=== PATIENT | female | born 1960 | race Caucasian/White ===

== ENCOUNTER 2024-06-20 16:06 | Emergency (ER) | payer BC, SELFPAY ==
[2024-06-20 16:19] VITALS: BP 131/89; PULSE 75; RESP 18; TEMP 36.4; O2SAT 97; BMI 25.4
--- NOTE | 2024-06-20 16:39 | CRLHL7_ITS ---
For Patients: As a result of the 21st Century Cures Act, medical imaging exams and procedure reports are released immediately into your electronic medical record. You may view this report before your referring provider. If you have questions, please contact your health care provider. INDICATION: Abdominal pain, not otherwise described. COMPARISON: None available. TECHNIQUE: CT of the abdomen and pelvis with 64 cc of Isovue 370 intravenous contrast. Please note that all CT scans at this facility use dose modulation, iterative reconstruction, and/or weight-based dosing when appropriate to reduce radiation dose to as low as reasonably achievable. FINDINGS: ABDOMEN Liver: Normal contour and attenuation. No significant focal lesion. No intrahepatic biliary ductal dilatation. Patent portal veins. Patent hepatic veins. Gallbladder: Normal size. No pericholecystic inflammatory changes. Normal common duct caliber. Pancreas: Normal contour and attenuation. No peripancreatic inflammatory changes. No significant focal lesion. Normal main duct caliber. Spleen: Not enlarged. No significant focal lesion. Patent splenic artery and vein. Adrenal Glands: Symmetrical adrenal glands. No significant focal lesion. Kidneys: 4 mm obstructing proximal left ureteral stone (4; 69) with associated mild upstream dilatation of the left upper urinary tract. A delayed left nephrogram is consistent with indirect evidence of obstructive uropathy. Perinephric and periureteral fat stranding within the left perirenal space is consistent with edema and/or spontaneous decompression of the obstructed left upper urinary tract. No suspicious focal renal lesion. Too small to characterize round circumscribed homogeneous hypoattenuating findings in the medial right upper pole renal cortex (2; 51) and lateral interpolar right renal cortex (2; 58) statistically likely represent small cysts. No further workup or ongoing imaging surveillance is indicated for such incidental findings. Gastrointestinal tract: Normal caliber, attenuation and wall thickness of the gastrointestinal tract. No inflammatory changes. Normal small bowel mesentery. Normal appendix. Vascular: Minimal chronic aortoiliac atherosclerotic mural calcification. Abdominal aorta and its major proximal branches including the celiac, superior mesenteric, inferior mesenteric, renal, and bilateral common iliac arteries are patent. Patent superior mesenteric vein. Peritoneal Cavity/Retroperitoneum: No ascites. No adenopathy. PELVIS No bladder lesion is identified. No significant incidental findings related to the uterus or uterine adnexa. No significant ascites. No adenopathy. SKELETON AND BODY WALL No acute or significant incidental findings. LOWER THORAX Severe multivessel atherosclerotic coronary artery calcifications. Partially included lower thoracic wall, lungs, pleural spaces and mediastinum are otherwise without significant incidental findings. IMPRESSION: 4 mm obstructing proximal left ureteral stone described above. Incidental findings described in the body of the report. Please note that all CT scans at this facility use dose modulation, iterative reconstruction, and/or weight-based dosing when appropriate to reduce radiation dose to as low as reasonably achievable. Dictated by Jv Smith MD @ 06/20/2024 7:03:26 PM (Electronically Signed)
--- NOTE | 2024-06-20 16:41 | ED_ITS ---
HPI - Abdominal Pain General Chief Complaint: Abdominal Pain Stated Complaint: abdominal pain Time Seen by Provider: 06/20/24 16:07 History of Present Illness HPI narrative: This 64-year-old female comes in with her because of abdominal pain that began this morning. She states that it has been rather constant throughout the day and the pain is diffuse across her whole abdomen. She does report nausea with several vomiting episodes. She does have diabetes type 2. Prior to this she has been in good health. She does not report any fever or blood in the toilet. Related Data Home Medications ?Medication ?Instructions ?Recorded ?Confirmed Trulicity 06/20/24 amlodipine 06/20/24 glipizide 06/20/24 lisinopril 06/20/24 metformin 06/20/24 pravastatin 06/20/24 Allergies Allergy/AdvReac Type Severity Reaction Status Date / Time No Known Drug Allergies Allergy Verified 06/20/24 18:03 Review of Systems Status of ROS Reports: 10 or more systems reviewed and unremarkable except as noted in History and below Narrative Constitutional: No fevers, no weight gain or loss. Eyes: No discharge. No vision changes. HENT: No congestion, no sore throat, no ear pain. Cardiovascular: No chest pain, no palpitations. Respiratory: No shortness of breath, no wheezes, no cough. Gastrointestinal: Abdominal pain with nausea and vomiting as described above. No diarrhea. Genitourinary: No dysuria, no hematuria. Musculoskeletal: Normal range of motion. Skin: No rashes, no pruritis. Neurological: No dizziness, weakness, sensory change, speech change. Endo/Heme/Allergies: No bruising or bleeding. No polydipsia. Pysch: no suicidality, no anxiety, no insomnia. All other systems reviewed and are negative. [facility] Social History Smoking Status: Never smoker Non-prescribed substance use: denies use Exam Narrative: Exam Narrative: Constitutional: Well-developed, well-nourished, no acute distress. HEENT: Normocephalic, atraumatic. Neck: Normal range of motion. Nontender. Supple. Heart: Regular. No murmurs. Normal rate. Intact distal pulses. Lungs: Clear to auscultation. No chest discomfort. No wheezes, rhonchi, or rales. Abdomen: Normal bowel sounds. Diffuse tenderness across the abdomen. No re bound tenderness. Genitalia: Deferred. Back: No midline tenderness. Normal range of motion. Extremities: Normal range of motion. No injury. Skin: Intact. No rash. Warm. No erythema or pallor. Neurologic: No altered sensation. No weakness. Alert and oriented. Psychiatric: No suicidality. No anxiety or depression. No insomnia. Nursing notes and vitals signs are reviewed. Const: Vital Signs, click to edit/add: Vital Signs - 24 hr 06/20/24 16:19 Temperature 97.5 F L Pulse Rate [Pulse Oximeter] 75 Respiratory Rate 18 [facility] 131/89 Pulse Oximetry 97 Oxygen Delivery Me thod Room Air Course Vital Signs Vital signs: Initial Vital Signs Temperature 97.5 F L 06/20/24 16:19 Temperature Source Temporal Artery Scan 06/20/24 16:19 Pulse Rate 75 06/20/24 16:19 Respiratory Rate 18 06/20/24 16:19 Blood Pressure 131/89 06/20/24 16:19 Blood Pressure Mean 103 06/20/24 16:19 Blood Pressure Position Supine 06/20/24 16:19 Pulse Oximetry 97 06/20/24 16:19 Oxygen Delivery Method Room Air 06/20/24 16:19 Vital Signs Temperature 97.5 F L 06/20/24 16:19 Pulse Rate 75 06/20/24 16:19 Respiratory Rate 18 06/20/24 16:19 Blood Pressure 131/89 06/20/24 16:19 Pulse Oximetry 97 06/20/24 16:19 Oxygen Delivery Method Room Air 06/20/24 16:19 Temperature 97.5 F L 06/20/24 16:19 Pulse Rate 75 06/20/24 16:19 Respiratory Rate 18 06/20/24 16:19 Blood Pressure 131/89 06/20/24 16:19 Pulse Oximetry 97 06/20/24 16:19 Oxygen Delivery Method Room Air 06/20/24 16:19 Medications Administered Medications: Discontinued Medications Generic Name Dose Route Start Last Admin Trade Name Freq PRN Reason Stop Dose Admin Sodium Chloride 500 mls @ 500 mls/hr 06/20/24 16:38 06/20/24 18:07 0.9 % Sodium Chloride 500 Ml IV 06/20/24 17:37 Infused .Q1H ONE Infusion Ketorolac Tromethamine 15 mg 06/20/24 16:38 06/20/24 16:58 Ketorolac 30 Mg/Ml Inj IVP 06/20/24 16:39 15 mg ONCE ONE Administration Ondansetron HCl 4 mg 06/20/24 16:38 06/20/24 16:58 Ondansetron 2 Mg/Ml Inj IVP 06/20/24 16:39 4 mg ONCE ONE Administration MDM - Abdominal Pain MDM Narrative Medical decision making narrative: This 64-year-old female comes in with abdominal pain and does report a history of a kidney stone about 4 years ago. An IV was established and CT imaging is obtained which does show evidence of a 4 mm stone in the left proximal ureter. The patient received IV doses of Toradol and Zofran which brought sufficient relief. She is okay to be discharged home and hopefully this stone will pass with the assistance of pain and nausea medicines. I did state that she may need intervention from her urologist if not improving. She received [facility] prescriptions for [place], Toradol, and Zofran. Lab Data Labs: Lab Results 06/20/24 06/20/24 Range/Units 17:05 18:50 WBC 12.93 H (4.50-11.00) K/uL RBC 5.02 (4.00-5.20) m/uL Hgb 13.1 (12.0-16.0) gm/dL Hct 40.1 (33.0-51.0) % MCV 80 (80-100) fL MCH 26 (26-34) pg MCHC 33 (32-36) gm/dL RDW Coeff of Sadia 14.5 (11.5-15.5) % Plt Count 269 (140-440) K/uL Neut % (Auto) 90.8 H (42.0-72.0) % Lymph % (Auto) 5.6 L (20-44) % [place] % (Auto) 3.2 (0.0-11.0) % Eos % (Auto) 0.0 (0.0-7.0) % Baso % (Auto) 0.2 (0.0-3.0) % Neut # (Auto) 11.70 H (1.7-7.0) K/uL Lymph # (Auto) 0.70 L (0.90-2.90) K/uL [place] # (Auto) 0.40 (0.00-0.90) K/UL Eos # (Auto) 0.00 (0.00-0.50) K/uL Baso # (Auto) 0.00 (0.00-0.30) K/uL Abs Immat Gran (auto) 0.00 (0.00-0.30) K/uL Imm/Tot Granulo (auto) 0.2 % Sodium 139 (135-149) mmol/L Potassium 4.5 (3.6-5.1) mmol/L Chloride 103 (96-114) mmol/L Carbon Dioxide 20 (20-32) mmol/L Anion Gap 16 H (7-15) mEq/L BUN 17 (7-30) mg/dL Creatinine 0.7 (0.5-1.5) mg/dL Estimated Creat Clear 41.90 Estimated GFR 98 ml/min Glucose 221 H (60-115) mg/dL Calcium 10.0 (8.4-10.6) mg/dL Lipase 121 (23-300) U/L Urine Color Yellow (Yellow) Urine Appearance Clear (Clear) Urine pH 6.5 (5.0-8.5) Ur Specific [place] 1.010 (1.000-1.030) Urine Protein Negative (Negative) Urine Glucose (UA) 3+ A (Negative) Urine Ketones 2+ A (Negative) Urine Blood 1+ A (Negative) Urine Nitrite Negative (Negative) Urine Bilirubin Negative (Negative) Urine Urobilinogen 0.2 (0.2-1.0) Ur Leukocyte Esterase Negative (Negative) Urine RBC 0-2 (0-2) Urine WBC 0-2 (0-5) Ur Squamous Epith Cells None (None-Few) Urine Bacteria None (None) Imaging Data CT scan - abdomen: Radiologist's impression: 4 mm obstructing proximal left ureteral stone described above. Incidental findings described in the body of the report. Discharge Plan Discharge Clinical Impression: Left ureteral calculus Patient Disposition: Home w/ Parent or Adult Condition: Stable Additional Instructions: Take medications as needed and indicated. Follow-up with clinic or urologist if not improving or return if worsening. Prescriptions: No Action metformin glipizide Trulicity amlodipine pravastatin lisinopril Stand Alone Forms: [employer] Info Instructions
[2024-06-20] MEDS: 0.9 % SODIUM CHLORIDE 500 ML 500 ML IV (16:57)
[2024-06-20] MEDS: ONDANSETRON 2 MG/ML inj 4 MG IVP (16:58)
[2024-06-20] MEDS: KETOROLAC 30 MG/ML inj 15 MG IVP (16:58)
[2024-06-20 17:13] LABS: Basophils Percent Auto 0.2 % (0.0-3.0); Hematocrit 40.1 % (33.0-51.0); Hemoglobin* 13.1 gm/dL (12.0-16.0); Immature Granulocytes Pct Auto 0.2 %; Lymphocytes Percent Auto 5.6 % (20-44); Mean Corpuscular HGB Conc 33 gm/dL (32-36); Mean Corpuscular Hemoglobin 26 pg (26-34); Mean Corpuscular Volume 80 fL (80-100); Monocytes Percent Auto 3.2 % (0.0-11.0); Neutrophils Percent Auto 90.8 % (42.0-72.0); Platelet Count* 269 K/uL (140-440); RDW Coefficient of Variation % 14.5 % (11.5-15.5); Red Blood Count 5.02 m/uL (4.00-5.20); White Blood Count* 12.93 K/uL (4.50-11.00)
[2024-06-20 17:17] LABS: Slide Review Reflex No
[2024-06-20 17:38] LABS: Chloride* 103 mmol/L (96-114); Sodium* 139 mmol/L (135-149)
[2024-06-20 17:39] LABS: Potassium* 4.5 mmol/L (3.6-5.1)
[2024-06-20 17:41] LABS: Anion Gap 16 mEq/L (7-15); Blood Urea Nitrogen* 17 mg/dL (7-30); Carbon Dioxide* 20 mmol/L (20-32); Creatinine* 0.7 mg/dL (0.5-1.5); Estimated Glomerular Filt Rate 98 ml/min; Glucose* 221 mg/dL (60-115); Lipase* 121 U/L (23-300)
[2024-06-20 19:01] VITALS: BP 141/94
[2024-06-20 19:06] LABS: Appearance Urine Clear (Clear); Bilirubin Urine Negative (Negative); Blood Urine 1+ (Negative); Color Urine Yellow (Yellow); Glucose Urine 3+ (Negative); Ketones Urine 2+ (Negative); Leukocyte Esterase Urine Negative (Negative); Nitrite Urine Negative (Negative); Protein Urine Negative (Negative); Urobilinogen Urine 0.2 (0.2-1.0); pH Urine 6.5 (5.0-8.5)
[2024-06-20 19:10] LABS: RBC Urine 0-2 (0-2); WBC Urine 0-2 (0-5)
[2024-06-20 19:31] VITALS: BP 141/99; PULSE 73; RESP 16; O2SAT 96
--- OUTSIDE RECORDS SUMMARY | 2024-06-20 19:33 | XMS_ITS | Encounter Summary ---
Author Organization [place] Address [facility] [place] [address] Care Team Providers Care Operations And Maintenance Technician Name Role Phone Kacy Reyes MD Unavailable [phone] Tru Dasilva MD Primary Care Provider [phone] Tru Dasilva MD Unavailable Reason for Visit * Reason Comments Medication Refill Encounter Details Date Type Department Care Team (Late st Contact Info) Description 05/16/2024 Refill [facility] [address] [place] [address] Kacy Reyes MD [address] [place] [address] Medication Refill Social History Tobacco Use Types Packs/Day Years Used Date Smoking Tobacco: Never Smokeless Tobacco: Never Alcohol Use Standard Drinks/Week Comments Yes 0 (1 standard drink = 0.6 oz pur e alcohol) wine Social Connection and Isolation Panel [NHANES] A nswer Date Recorded Frequency of Communication with Friends and Fami ly Not on file 12/24/2023 How often do you get together with friends or re latives? Once a week 12/24/2023 Attends Scientology Services Not on file 12/23 Active Member of Clubs or Organizations Not on f ile 12/24/2023 Attends Club or Organization Meetings Not on rachele e 12/24/2023 Marital Status Not on file 12/24/2023 PHQ-2 Answer Date Recorded PHQ-2 Score 0 12/24/2023 [facility] - Occupational Stress Questionnaire Answer Date Recorded Do you feel stress - tense, restless, nervous, or anxious, or unable to sleep at night because your mind is troubled all the time - these days? Only a little 12/24/2023 Exercise Vital Sign Answer Date Recorde d On average, how many days pe r week do you engage in moderate to strenuous exercise (like a brisk walk)? 5 days 12/24/2023 On average, how many minutes do you engage in exercise at this level? 60 min 12/24/2023 Adolescent Education Answer Date Record ed Getting School Help Needed Not on file 04/20 Food Insecurity Answer Date Recorded Within the past 12 months, d id you worry that your food would run out before you got money to buy more? No 12/24/2023 Within the past 12 months, d id the food you bought just not last and you didn t have money to get more? No 12/24/2023 Housing Stability Answer Date Recorded Do you have housing? (Housin g is defined as stable permanent housing and does not include staying ouside in a car, in a tent, in an abandoned building, in an overnight prison, or couch-surfing.) Yes 12/24/2023 Are you worried about losing your housing? No 12/24/2023 Financial Resource Strain Answer Date R ecorded Within the past 12 months, h ave you or your family members you live with been unable to get utilities (heat, electricity) when it was really needed? No 12/24/2023 Transportation Needs Answer Date Record ed Within the past 12 months, h as lack of transportation kept you from medical appointments, getting your medicines, non-medical meetings or appointments, work, or from getting things that you need? No 12/24/2023 Comments No Sex and Gender Information Value Date Recorded Sex Assigned at Not on file Legal Sex Female 3:19 AM HAND BUFFER Gender Identity Not on file Sexual Orientation Not on file Occupation Industry Job Start Date Job End Date Not on file Not on file Not on file Not on file documented as of this encounter Miscellaneous Notes * Telephone Encounter - Elizabeth Alexandre RN - 05/16/2024 10:17 AM CDT Requested Prescriptions Pending Prescriptions Disp Refills lisinopril (ZESTRIL) 40 MG tablet [Pharmacy Med Name: LISINOPRIL 40MG TABS] 90 tablet 0 Sig: TAKE ONE TABLET BY MOUTH ONCE DAILY RENETTA Inhibitors (Including Combos) Protocol Passed - 05/16/2024 10:21 AM Passed - Most recent blood pressure under 140/90 in past 12 months- Clinicial or Patient Reported BP Readings from Last 3 Encounters: 04/28/24 111/70 12/24/23 117/78 11/23/23 126/70 No data recorded Passed - Medication is active on med list Passed - Medication indicated for associated diagnosis Medication is associated with one or more of the following diagnoses: Chronic Kidney Disease (CKD) Coronary Artery Disease (CAD) Diabetes Heart Failure (HF) Hypertension (HTN) Nephropathy History of myocarditis Tachycardia induced cardiomyopathy STEMI (ST elevation myocardial infarction) Spontaneous dissection of coronary artery Status post percutaneous transluminal coronary angioplasty Passed - Recent (12 mo) or future (90 days) visit within the authorizing provider's specialty The patient must have completed an in-person or virtual visit within the past 12 months or has a future visit scheduled within the next 90 days with the authorizing provider???s specialty. Urgent care and e-visits do not quality as an office visit for this protocol. Passed - Most recent GFR on file in the past 12 months >30 Passed - Patient is age 18 or older Passed - No active on record Passed - Normal serum potassium on file in past 12 months Recent Labs Lab Test 11/18/23 1007 POTASSIUM 4.3 Passed - No positive test within past 12 months pravastatin (PRAVACHOL) 40 MG tablet [Pharmacy Med Name: PRAVASTATIN SODIUM 40MG TABS] 90 tablet 0 Sig: TAKE ONE TABLET BY MOUTH ONCE DAILY Antihyperlipidemic agents Passed - 05/16/2024 10:21 AM Passed - LDL on file in the past 12 months Passed - Medication is active on med list Passed - Recent (12 mo) or future (90 days) visit within the authorizing provider's specialty The patient must have completed an in-person or virtual visit within the past 12 months or has a future visit scheduled within the next 90 days with the authorizing provider???s specialty. Urgent care and e-visits do not quality as an office visit for this protocol. Passed - Patient is age 18 years or older Passed - No active on record Passed - No positive test in past 12 mos documented in this encounter Plan of Treatment Upcoming Encounters Date Type Department Care Team (Latest Contact Info) Description 06/24/2024 8:30 AM HAND BUFFER Office Visit [facility] [address] [place] [address] [place] [id number] [place] [address] 07/29/2024 10:45 AM HAND BUFFER Ancillary Procedure [facility] [address] [place] [phone] David Lau PA-C [address] [place] [address] Visit for screening mammogram 10/31/2024 3:00 PM CDT Office Visit [place] [address] [place] [phone] Kayce Jasso PA-C [address] [place], [place] [id number] 01/02/2025 10:00 AM CDT Office Visit [facility] [address] [place] [phone] David Lau PA-C [address] [place], [place] [phone] 05/03/2025 1:00 PM CDT Office Visit [facility] [address] [facility] [address] [place] [phone] Kacy Reyes MD [address] [facility] [address] [place] [address] documented as of this encounter Visit Diagnoses Diagnosis Essential hypertension, benign Hyperlipidemia LDL goal <100 Other and unspecified hyperlipidemia Visit for screening mammogram Other screening mammogram documented in this encounter Care Teams Operations And Maintenance Technician Relationship Specialty [place] [address] [place] [address] PCP - General Family Medicine 12/18/23 06/02/24 Kacy Reyes MD [address] [place] [address] [address] [place] [address] Assigned Endocrinology Provider 12/10/23 [place] [address] [place] [address] Assigned PCP 01/10/24 documented as of this encounter
--- OUTSIDE RECORDS SUMMARY | 2024-06-20 19:33 | XMS_ITS | Encounter Summary ---
Author Organization [place] Address [facility] [place] [address] Care Team Providers Care Director Operations Name Role Phone Kacy Reyes MD Unavailable [phone] Kali Ventura PA-C Primary Care Provider Kali Ventura PA-C Unavailable Kizzy Davenport OD Unavailable Ricky Ramirez MD Unavailable [phone] Jamar Walter PA-C Unavailable Kali Ventura PA-C Unavailable Kacy Reyes MD Unavailable [phone] Tru Dasilva MD Primary Care Provider Tru Dasilva MD Unavailable David Lau PA-C Primary Care Provider Reason for Visit * Reason Comments Refill Request metFORMIN (GLUCOPHAG E) 1000 MG tablet 60 tablet 0 04/03/2023 Encounter Details Date Type Department Care Team (Late st Contact Info) Description 04/28/[address] [address] Jamar Walter PA-C [address] [place] [address] Refill Request (metFORMIN (GLUCOPHAGE) 1000 MG tablet 60 tablet 0 04/03/2023) Social History Tobacco Use Types Packs/Day Years Used Date Smoking Tobacco: Never Smokeless Tobacco: Never Alcohol Use Standard Drinks/Week Comments Yes 0 (1 standard drink = 0.6 oz pur e alcohol) wine PHQ-2 Answer Date Recorded PHQ-2 Score 0 01/15/2023 Adolescent Education Answer Date Record ed Getting School Help Needed Not on file 04/20 Comments No Sex and Gender Information Value Date Recorded Sex Assigned at Not on file Legal Sex Female 3:19 AM NEEDLE PUNCH MACHINE OPERATOR Gender Identity Not on file Sexual Orientation Not on file Occupation Industry Job Start Date Job End Date Not on file Not on file Not on file Not on file documented as of this encounter Miscellaneous Notes * Telephone Encounter - Aminata Zuñiga - 05/15/2023 9:35 AM CDT 05/15 Called and spoke to patient, she is no longer seeing jamar walter, she has a new provider. Aminata hernandez Procedure Manufacturing Process Engineer Orthopedics, Podiatry, Sports Medicine, Ent ,Eye , Audiology, Adult Endocrine & Diabetes, Nutrition & Medication Therapy Management Specialties [facility] * Telephone Encounter - Aminata Zuñiga - 05/11/2023 9:15 AM CDT 05/11 Called and left voicemail, provided phone number [phone] to schedule follow up appointment with jamar walter. Aminata hernandez Procedure Manufacturing Process Engineer Orthopedics, Podiatry, Sports Medicine, Ent ,Eye , Audiology, Adult Endocrine & Diabetes, Nutrition & Medication Therapy Management Specialties [facility] * Telephone Encounter - Norma Ruelas RN - 05/08/2023 3:04 PM CDT Received notice from Clinic Coordinators as follows: I just spoke with the patient. She does not have insurance at this time, and is declining to schedule any appointments at this time. She will call if her circumstances change. Thank you for your message! Kate * Telephone Encounter - Aminata Zuñiga - 05/04/2023 9:39 AM CDT 05/04 Called and left voicemail, provided phone number [phone] to schedule lab and follow up appointment with jamar walter. Aminata hernandez Procedure Manufacturing Process Engineer Orthopedics, Podiatry, Sports Medicine, Ent ,Eye , Audiology, Adult Endocrine & Diabetes, Nutrition & Medication Therapy Management Specialties [facility] and Surgery [facility] * Telephone Encounter - Jamar Walter PA-C - 04/30/2023 12:29 PM CDT She needs an appt. Kidney function was abnormal and we need to repeat laboratory testing. * Telephone Encounter - Joanna Watkins RN - 04/29/2023 3:05 PM CDT Images from the original note were not included. metFORMIN (GLUCOPHAGE) 1000 MG tablet 60 tablet 0 04/03/2023 Last Office Visit: 01/15/23 Future Office visit: none Biguanide Agents Bnsndl4104/28/2023 01:07 PM Protocol Details Patient's CR is NOT>1.4 OR Patient's EGFR is NOT<45 within past 12 mos. Creatinine Date Value Ref Range Status 01/21/2023 1.76 (H) 0.51 - 0.95 mg/dL Final 12/14/2019 0.96 0.52 - 1.04 mg/dL Final Routing refill request to provider for review/approval because: Failed refill protocol, abnormal lab Joanna Balcome, RN documented in this encounter Plan of Treatment Upcoming Encounters Date Type Department Care Team (Latest Contact Info) Description 06/24/2024 8:30 AM NEEDLE PUNCH MACHINE OPERATOR Office Visit [facility] [address] [place] [address] [place] [address] [place] [address] 07/29/2024 10:45 AM NEEDLE PUNCH MACHINE OPERATOR Ancillary Procedure [facility] [address] [place] [phone] David Lau PA-C [address] [place], [place] [phone] Visit for screening mammogram 10/31/2024 3:00 PM CDT Office [facility] [address] [place] [phone] Jamar Walter PA-C [address] [place], [place] [address] 01/02/2025 10:00 AM CDT Office Visit [facility] [address] [place] [phone] David Lau PA-C [address] [place], [place] [address] 05/03/2025 1:00 PM CDT Office [facility] [address] [place] [phone] Kacy Reyes MD [address] [phone] documented as of this encounter Visit Diagnoses Diagnosis Type 2 diabetes mellitus with stage 1 chronic kidney disease, without long-term current use of insulin (H) Visit for screening mammogram Other screening mammogram documented in this encounter Care Teams Director Operations Relationship Specialty Start Date End Date Kali Ventura PA-C [address] [place] [address] PCP - General Family Medicine 11/18/21 12/17/23 [place] [address] [place] [address] PCP - General Family Medicine 12/18/23 06/02/24 David Lau PA-C [address] [place] [address] PCP - General Family Medicine 06/03/24 Kacy Reyes MD [address] [place] [address] Assigned Endocrinology Provider 08/12/20 07/31/23 Kali Ventura PA-C [address] [place], [place] [id number] Assigned PCP 01/18/22 07/10/23 Kizzy Davenport OD [address] [place] [address] Assigned Surgical Provider 09/20/22 Ricky Ramirez MD [address]0 [place] [address] Assigned PCP 07/11/23 12/09/23 Jamar Walter PA-C 500 [place] [address] Assigned Endocrinology Provider 08/21/23 12/09/23 Kali Ventura PA-C [address] [place] [address] Assigned PCP 12/10/23 01/09/24 Kacy Reyes MD [address] [place] [address] 200 [place] [address] Assigned Endocrinology Provider 12/10/23 [place] [address] [place], [place] [id number] Assigned PCP 01/10/24 documented as of this encounter
--- OUTSIDE RECORDS SUMMARY | 2024-06-20 19:33 | XMS_ITS | Encounter Summary ---
Author Organization [place] Address [facility] [place] [address] Care Team Providers Care Belt Weaver Name Role Phone Kacy Reyes MD Unavailable [phone] Tru Dasilva MD Primary Care Provider [phone] Tru Dasilva MD Unavailable Reason for Visit * Reason Comments Medication Refill Encounter Details Date Type Department Care Team (Late st Contact Info) Description 04/14/2024 Refill [facility] [address] [place] [address] Kacy Reyes MD [address] [place] [address] Medication Refill Social History Tobacco [...] re latives? Once a week 12/24/2023 Attends Jewish Services Not on file 12/23 Active Member of Clubs or Organizations Not on f ile 12/24/2023 Attends Club or Organization Meetings Not on rachele e 12/24/2023 Marital Status Not on file 12/24/2023 PHQ-2 Answer Date Recorded PHQ-2 Score 0 12/24/2023 [facility] of Occupat ional Health - Occupational Stress [...] in an abandoned building, in an overnight long-term, or couch-surfing.) Yes 12/24/2023 Are you worried [...] on file Legal Sex Female 3:19 AM FORMULATOR Gender Identity Not on file Sexual Orientation Not on file Occupation Industry Job Start Date Job End Date Not on file Not on file Not on file Not on file documented as of this encounter Miscellaneous Notes * Telephone Encounter - Elizabeth Alexandre RN - 04/14/2024 10:59 AM CDT Requested Prescriptions Pending Prescriptions Disp Refills Dulaglutide (TRULICITY) 4.5 MG/0.5ML SOPN [Pharmacy Med Name: TRULICITY 4.5MG/0.5ML SOAJ] 2 mL 0 Sig: INJECT 4.5 MG SUBCUTANEOUSLY EVERY 7 DAYS GLP-1 Agonists Protocol Passed - 04/14/2024 10:22 AM Passed - HgbA1C in past 3 or 6 months If HgbA1C is 8 or greater, it needs to be on file within the past 3 months. If less than 8, must beon file within the past 6 months. Recent Labs Lab Test 11/18/23 1007 A1C 7.7* Passed - Medication is active on med list Passed - Has GFR on file in past 12 months and most recent value is normal Passed - Recent (6 mo) or future (90 days) visit within the authorizing provider's specialty The patient must have completed an in-person or virtual visit within the past 6 months or has a future visit scheduled within the next 90 days with the authorizing provider???s specialty. Urgent careand e-visits do not quality as an office visit for this protocol. Passed - Medication indicated for associated diagnosis Medication is associated with one or more of the following diagnoses: Type 2 diabetes mellitus Passed - Patient is age 18 or older Passed - No active on record Passed - No positive test in past 12 months documented in this encounter Plan of Treatment Upcoming Encounters Date Type Department Care Team (Latest Contact Info) Description 06/24/2024 8:30 AM FORMULATOR Office Visit [facility] [address] [place] [phone] Tru Dasilva MD [address] [place] [address] 07/29/2024 10:45 AM FORMULATOR Ancillary Procedure [facility] [address] [place] [address] David Lau PA-C [address] [place] [address] Visit for screening mammogram 10/31/2024 3:00 PM CDT Office Visit [facility] [address] [place] [phone] Kayce Jasso PA-C [address] [place] [address] 01/02/2025 10:00 AM CDT Office Visit [facility] [address] [place] [phone] David Lau PA-C [address] [place] [address] 05/03/2025 1:00 PM CDT Office Visit [facility] [address] [place] [phone] Kacy Reyes MD [address] [place] [address] documented as of this encounter Visit Diagnoses Diagnosis Type 2 diabetes mellitus with stage 1 chronic kidney disease, without long-term current use of insulin (H) Visit for screening mammogram Other screening mammogram documented in this encounter Care Teams Belt Weaver Relationship Specialty [place] [address] [place] [address] PCP - General Family Medicine 12/18/23 06/02/24 Kacy Reyes MD [address] [facility] [address] [place], [place] [address] Assigned Endocrinology Provider 12/10/23 [place] [address] [place] [address] Assigned PCP 01/10/24 documented as of this encounter
--- OUTSIDE RECORDS SUMMARY | 2024-06-20 19:33 | XMS_ITS | Encounter Summary ---
Author Organization [place] Address [facility] [place] [address] Care Team Providers Care Quality Assurance Clerk Name Role Phone Kizzy Davenport OD Unavailable [phone] Kacy Reyes MD Unavailable [phone] Tru Dasilva MD Primary Care Provider Tru Dasilva MD Unavailable Reason for Visit * Reason Comments Medication Refill Encounter Details Date Type Department Care Team (Late st Contact Info) Description 04/05/2024 Refill [facility] [address] [place] [address] Kacy Reyes MD [address] [place] [address] Medication Refill Social History Tobacco [...] re latives? Once a week 12/24/2023 Attends Mandae[employer] Services Not on file 12/23 Active Member of Clubs or Organizations Not on f ile 12/24/2023 Attends Club or Organization Meetings Not on rachele e 12/24/2023 Marital Status Not on file 12/24/2023 PHQ-2 Answer Date Recorded PHQ-2 Score 0 12/24/2023 [facility] [place] of Occupat ional Health - Occupational Stress [...] Answer Date Recorded Do you have housing? (Bronwyn g is defined as stable permanent housing and does not include staying ouside in a car, in a tent, in an abandoned building, in an overnight penitentiary, or couch-surfing.) Yes 12/24/2023 Are you worried [...] on file Legal Sex Female 3:19 AM POWERED BRIDGE SPECIALIST Gender Identity Not on file Sexual Orientation Not on file Occupation Industry Job Start Date Job End Date Not on file Not on file Not on file Not on file documented as of this encounter Plan of Treatment Upcoming Encounters Date Type Department Care Team (Latest Contact Info) Description 06/24/2024 8:30 AM POWERED BRIDGE SPECIALIST Office Visit [facility] [address] [place] [address] [place] [address] [place] [address] 07/29/2024 10:45 AM POWERED BRIDGE SPECIALIST Ancillary Procedure [facility] [address] [place] [phone] David Lau PA-C [address] [place], [place] [phone] Visit for screening mammogram 10/31/2024 3:00 PM CDT Office Visit [place] [address] [facility] 200 [place] [phone] Kayce Jasso PA-C 500 [place], [place] [phone] 01/02/2025 10:00 AM CDT Office Visit [facility] [address] [place] [phone] David Lau PA-C [address] [place] [address] 05/03/2025 1:00 PM CDT Office Visit [facility] [address] [place] [phone] Kacy Reyes MD [address] [place] [address] documented as of this encounter Visit Diagnoses Diagnosis Type 2 diabetes mellitus with stage 1 chronic kidney disease, without long-term current use of insulin (H) Visit for screening mammogram Other screening mammogram documented in this encounter Care Teams Quality Assurance Clerk Relationship Specialty [place] [address] [place] [address] PCP - General Family Medicine 12/18/23 06/02/24 Kizzy Davenport OD [address] [facility] [address] Assigned Surgical Provider 09/20/22 Kacy Reyes MD [address] [place] [address] 200 [place] [address] Assigned Endocrinology Provider 12/10/23 [place] [address] [place] [address] Assigned PCP 01/10/24 documented as of this encounter
--- OUTSIDE RECORDS SUMMARY | 2024-06-20 19:33 | XMS_ITS | Encounter Summary ---
Author Organization [place] Address [facility] [place] [address] Care Team Providers Care Dentist Name Role Phone Kizzy Davenport OD Unavailable Kali Berger PA-C Unavailable Kacy Reyes MD Unavailable [phone] Tru Dasilva MD Primary Care Provider [phone] Tru Dasilva MD Unavailable David Lau PA-C Primary Care Provider Reason for Visit * Reason Comments Medication Refill Encounter Details Date Type Department Care Team (Late st Contact Info) Description 12/18/[address] [address] Kali Berger PA-C [address] [place] [address] Medication Refill Social History Tobacco Use Types [...] on file Legal Sex Female 3:19 AM CREPE MACHINE OPERATOR Gender Identity Not on file Sexual Orientation Not on file Occupation Industry Job Start Date Job End Date Not on file Not on file Not on file Not on file documented as of this encounter Miscellaneous Notes * Telephone Encounter - Nidhi Matias - 12/18/2023 4:43 PM CDT Patient is establishing care with Tru Dasilva, shceduled for 12/24/23 * Telephone Encounter - Kali Berger PA-C - 12/18/2023 1:25 PM CDT 1 refill. I have not seen patient in almost 2 years. Needs appt for further refills. Phan berger, guilherme documented in this encounter Plan of Treatment Upcoming Encounters Date Type Department Care Team (Latest Contact Info) Description 06/24/2024 8:30 AM CREPE MACHINE OPERATOR Office Visit [facility] [address] [place] [phone] [place] [address] [place] [address] 07/29/2024 10:45 AM CREPE MACHINE OPERATOR Ancillary Procedure [facility] [address] [place] [phone] David Lau PA-C [address] [place] [address] Visit for screening mammogram 10/31/2024 3:00 PM CDT Office Visit [facility] [address] [place] [address] Kayce Jasso PA-C 500 [place] [address] 01/02/2025 10:00 AM CDT Office Visit [facility] [address] [place] [phone] David Lau PA-C [address] [place] [address] 05/03/2025 1:00 PM CDT Office Visit [facility] [address] [facility] [address] [place] [address] Kacy Reyes MD [address] [place] [address] [address] [place], [place] [address] documented as of this encounter Visit Diagnoses Diagnosis Monilia infection Candidiasis of unspecified site Visit for screening mammogram Other screening mammogram documented in this encounter Care Teams Dentist Relationship Specialty [place] [address] [place] [address] PCP - General Family Medicine 12/18/23 06/02/24 David Lau PA-C [address] [facility] [place] [address] PCP - General Family Medicine 06/03/24 Kizzy Davenport OD [address] [facility] [place] [address] Assigned Surgical Provider 09/20/22 Kali Berger PA-C [address] [place] [address] Assigned PCP 12/10/23 01/09/24 Kacy Reyes MD [address] [facility] [address] [place] [address] Assigned Endocrinology Provider 12/10/23 [place] [address] [place] [address] Assigned PCP 01/10/24 documented as of this encounter
--- OUTSIDE RECORDS SUMMARY | 2024-06-20 19:33 | XMS_ITS | Encounter Summary ---
Author Organization [place] Address [address] [place] [address]. [place] [address] Care Team Providers Care Health Analyst Name Role Phone Kacy Reyes MD Unavailable [phone] Tru Dasilva MD Primary Care Provider [phone] Tru Dasilva MD Unavailable Reason for Visit * Reason Onset Date Comments Panel Management 05/25/2024 Encounter Details Date Type Department Care Team (Late st Contact Info) Description 05/25/2024 Telephone [facility] [address] [place] [address] [place] [id number] [place] [address] Panel Management Social History Tobacco Use Types Packs/Day Years [...] re latives? Once a week 12/24/2023 Attends [employer] Not on file 12/23 Active Member of Clubs or Organizations Not on f ile 12/24/2023 Attends Club or Organization Meetings Not on rachele e 12/24/2023 Marital Status Not on file 12/24/2023 PHQ-2 Answer Date Recorded PHQ-2 Score 0 12/24/2023 [facility] [place] of Occupat ional Health - Occupational Stress [...] in an abandoned building, in an overnight alf, or couch-surfing.) Yes 12/24/2023 Are you worried [...] on file Legal Sex Female 3:19 AM PATIENT EDUCATOR Gender Identity Not on file Sexual Orientation Not on file Occupation Industry Job Start Date Job End Date Not on file Not on file Not on file Not on file documented as of this encounter Miscellaneous Notes * Telephone Encounter - Xochilt Hollingsworth - 05/25/2024 10:19 AM CST Pt returned call-mammogram scheduled for 06/03/2024 at [facility]. Shagufta Hollingsworth/ED ENT EDUCATOR * Telephone Encounter - Mica Wallis CMA - 05/25/2024 10:08 AM PATIENT EDUCATOR Patient Quality Outreach Patient is due for the following: Breast Cancer Screening - Mammogram Next Steps: Schedule a office visit for mammo Type of outreach: Phone, left message for patient/parent to call back. Questions for provider review: None Mica Wallis CMA ENT EDUCATOR documented in this encounter Plan of Treatment Upcoming Encounters Date Type Department Care Team (Latest Contact Info) Description 06/24/2024 8:30 AM PATIENT EDUCATOR Office Visit [facility] [address] [place] [phone] [place] [address] [place] [address] 07/29/2024 10:45 AM PATIENT EDUCATOR Ancillary Procedure [facility] [address] [place] [address] David Lau PA-C [address] [place] [address] Visit for screening mammogram 10/31/2024 3:00 PM CDT Office Visit [facility] [address] [place] [phone] Kayce Jasso PA-C 500 [place] [address] 01/02/2025 10:00 AM CDT Office Visit [facility] [address] [place] [phone] David Lau PA-C [address] [place], [place] [address] 05/03/2025 1:00 PM CDT Office Visit [facility] [address] [place] [phone] Kacy Reyes MD [address] [place] [address] documented as of this encounter Visit Diagnoses Not on filedocumented in this encounter Care Teams Health Analyst Relationship Specialty [place] [address] [place] [address] PCP - General Family Medicine 12/18/23 06/02/24 Kacy Reyes MD [address] [place] [address] Assigned Endocrinology Provider 12/10/23 [place] [address] [place] [address] Assigned PCP 01/10/24 documented as of this encounter
--- OUTSIDE RECORDS SUMMARY | 2024-06-20 19:33 | XMS_ITS | Encounter Summary ---
Author Organization [facility] Address Count includes the [facility] [place] [address] Care Team Providers Care Senior Training Specialist Name Role Phone Kacy Reyes MD Unavailable [phone] Tru Dasilva MD Primary Care Provider [phone] Tru Dasilva MD Unavailable Reason for Visit * Reason Comments Diabetes Encounter Details Date Type Department Care Team (Late st Contact Info) Description 04/28/2024 2:00 PM CDT Office Visit [facility] [address] [facility] [place] [address] Kacy Reyes MD [address] [place] [address] Type 2 diabetes mellitus with stage 1 chronic kidney disease, without long-term current use of insulin (H) (Primary Dx) Social History Tobacco Use Types Packs/Day Years [...] re latives? Once a week 12/24/2023 Attends [employer] Services Not on file 12/23 Active Member of Clubs or Organizations Not on f ile 12/24/2023 Attends Club or Organization Meetings Not on rachele e 12/24/2023 Marital Status Not on file 12/24/2023 PHQ-2 Answer Date Recorded PHQ-2 Score 0 12/24/2023 [facility] - Occupational Stress [...] in an abandoned building, in an overnight group home, or couch-surfing.) Yes 12/24/2023 Are you worried [...] on file Legal Sex Female 3:19 AM KILN FURNITURE SAW TENDER Gender Identity Not on file Sexual Orientation Not on file Occupation Industry Job Start Date Job End Date Not on file Not on file Not on file Not on file documented as of this encounter Last Filed Vital Signs Vital Sign Reading Time Taken Comments Blood Pressure 111/70 04/28/2024 1:59 PM CDT Pulse 68 04/28/2024 1:59 PM CDT Temperature 36.7 C (98.1 F) 04/28/2024 1:59 PM CDT Respiratory Rate 16 04/28/2024 1:59 PM CDT Oxygen Saturation 96% 04/28/2024 1:59 PM CDT Inhaled Oxygen Concentration - - Weight 60.7 kg (133 lb 12.8 oz) 04/28/2024 1:59 PM CDT Height 152.4 cm (5') 04/28/2024 1:59 PM CDT Body Mass Index 26.13 04/28/2024 1:59 PM CDT documented in this encounter Patient Instructions * Patient Instructions* Kacy Reyes MD - 04/28/2024 2:00 PM CDT [facility] Dr Reyes, Endocrinology Department [address] [place] [address] Appointment [phone] [place]: Thursday - Please check the cost coverage and copay with insurance before recommended tests, services and medications (especially if new medications are prescribed). If ordered, please get blood work done 1 week prior to your next appointment so they will be available to Dr. Reyes at your visit. To provide the best diabetic care, please bring your blood glucose meter to each and every visit with your Strip Cutter. Your blood glucose CGM/meter/insulin pump will be downloaded at every appointment. Please arrive 15 minutes before your scheduled appointment. This will allow for your blood glucose CGM/meter/insulin pump to be downloaded. If you are wearing DEXCOM please bring wet chemistry analyst or sharing code from the Dexcom Clarity [place] so thatit can be downloaded. If you are using FREESTYLE RICK personal sensors please bring the reader. TO UPLOAD THE ExtraFootieYLE RICK: Connecting to the Clinic on the Rick Boone: Step 1: Open the Settings Menu. Click the three blue lines to open the Settings Menu. Step 2: Click Connected Apps. Step 3: Click Connect or Manage next to [employer]. Step 4: Clinic Connect to a Practice: Step 5: Link to a practice: To connect to [place] [facility] enter the following Practice ID: [id number] in the field provided and click the Add button. You should now see your healthcare practice or clinic name appear in your Linked Practices list. This means you have successfully linked accounts and your healthcare professionalnow has access to all your glucose data. Fluconazole- take 150 mg tab X 1 time ( vaginal infection) Labs needed. STOP Farxiga Continue Metformin 1000 mg twice a day. Increase Glipizide XL to 15 mg in AM with food ( take 3 tab of 5 mg) Continue Trulicity to 4.5 mg weekly. Follow up with Kayce THOMAS in 6 months with labs prior. Repeat labs and follow up with in 6 month after that. Please make a lab appointment for blood work and follow up clinic appointment in 1 week after that to discuss results. Recommend checking blood sugars before meals and at bedtime. If Blood glucose are low more often-> 2-3 times/week- give us a call. Make better food choices: reduce carbs, Reduce portion size, weight loss and exercise 3-4 times a week. What is hypoglycemia: Hypoglycemia is when blood sugar levels become too low - below 70 m/dl. What causes hypoglycemia? - using too much insulin -taking too many diabetes pills -not eating enough, or skipping meals or snacks -not eating enough carbohydrate with meals -changing your exercise routine -drinking alcohol in excess It is also possible to have hypoglycemia even when you are carefully managing your blood sugar levels. What does it feel like when blood sugars get too low? You may feel: - anxious -confused -dizzy -hungry -light-headed -nervous -shaky -sleepy -sweaty You may have -blurred or cloudy vision -heart palpitations (heart skips a beat or races) -tingling or numbness around the mouth and tongue -tremors What to do if you have symptoms of hypoglycmemia: If you think your blood sugar is too low, check it with a glucose meter. If its below 70 mg/dl, consume one of the following: Fruit juice (1/2 cup) Glucose tablets (15 grams) Hard candy (5 to 7 pieces) Honey or sugar (2 teaspoons) Milk (1/2 cup) Soft drink (non-diet, 1/2 cup) Wait 15 minutes and check your blood glucose again. IF it is still below 70 mg/dl, have another food item listed above. Wait another 15 minutes and repeat the blood glucose test. Have a small meal orsnack that contains some carbohydrate after your blood glucose rises above 70 mg/dl. If you are at risk of hypoglycemia, always carry with you glucose tablets or one of the foods listed above. To prevent Hypoglycemia: Avoid situations that may cause hypoglycemia Before making any change to your diet or exercise routine, discuss them with your healthcare provider Keep a record of your blood glucose levels. Include the time of day, diabetes medications, when youhad your last meal or snack, and what you were doing at the time (e.g. Watching TV, gardening, jogging, etc). Talk to your healthcare provider if your blood glucose levels are often low Patient guide on hypoglycemia http://www.hormone.org/Resources/upload/syqhzwj-qpfbu-[email or web address]-[email or web address]-r [email or web address] documented in this encounter Progress Notes * Kacy Reyes MD - 04/28/2024 2:00 PM CDT Images from the original note were not included. Name: Meredith Perera F/u for Diabetes. HPI: Meredith Perera is a63 year old female who presents for f/u of DM. has a past medical history of abnormal cervical Pap smear, Obesity, unspecified, Other and unspecified hyperlipidemia, Type II or unspecified type diabetes mellitus without mention of complication, not stated as uncontrolled, and Unspecified essential hypertension. She has lost 50 lbs gradually since 2018- intentional weight loss. Now stable. Had diagnostic CGM 11/2021 which showed nocturnal hypoglycemia- following that metfomrin was decreased. She lost insurance for some part of 2022. (10/2022-07/2023) During that time. She was only taking metformin and glipizide. She was not taking Farxiga and Trulicity during that time. Since Jul 2023--she is back on insurance and now she is taking all medication including Farxiga andTrulicity. She reports her blood sugars since then improving. Having on and off vaginal itching-- wonders if she can get a prescription for that. I discussed that Farxiga is demonstrated to elevated and can cause vaginal yeast infection. She reports that Farxiga is very expensive for her and she would like to get off of that. In last clinic visit she was given a sample for rick. She used it but at the same time she used her 's phone for that. No rick blood sugar data available today. Wt Readings from Last 2 Encounters: 04/28/24 60.7 kg (133 lb 12.8 oz) 12/24/23 59.1 kg (130 lb 6.4 oz) 1. Type 2 DM: Originally diagnosed at the age of: 37 years old, was prediabetic prior; initially treated with Metformin, glipizide was later added, then Januvia was started about one year ago. Current Regimen: Metformin 1000 mg BID Glipizide XL 10 mg in AM Trulicity 4.5 mg weekly. Farxiga 5 mg daily. yes: Diabetes Medication(s) Biguanides metFORMIN (GLUCOPHAGE) 1000 MG tablet Take 1 tablet (1,000 mg) by mouth 2 times daily (with meals) Sodium-Glucose Co-Transporter 2 (SGLT2) Inhibitors dapagliflozin (FARXIGA) 5 MG TABS tablet TAKE 1 TABLET (5 MG) BY MOUTH DAILY Sulfonylureas glipiZIDE (GLUCOTROL XL) 10 MG 24 hr tablet Take 1 tablet (10 mg) by mouth daily Incretin Mimetic Agents TRULICITY 4.5 MG/0.5ML SOPN INJECT 4.5 MG SUBCUTANEOUSLY EVERY 7 DAYS Started Trulicity 07/31/2015, dose increased 11/2015; changed to bydureon due to insurance formulary.Tolerated Trulicity well - no GI side effects. Had subcutaneous nodules with Bydureon. DiscontinuedBydureon and restarted Trulicity. BS checks: daily - q am Meter Download: FBG ranging from 100-130. No major episodes of hypoglycemia noted/reported. Complications: Diabetes Complications Description / Detail Diabetic Retinopathy Mild background diabetic retinopathy without macular edema. Last visit 2019. Needs to make appointment. CAD / PAD No Neuropathy No Nephropathy / Microalbuminuria No Gastroparesis No Hypoglycemia Unawareness No 2. Hypertension: Blood Pressure: BP Readings from Last 3 Encounters: 04/28/24 111/70 12/24/23 117/78 11/23/23 126/70 Blood pressure medications include Lisinopril 40 mg q d, Amlodipine 5 mg qd. 3. Hyperlipidemia: Takes Pravastatin 40 mg qd for lipid control. 4. Vitamin D deficiency, resolved: was treated with vitamin D 50,000 units weekly. Vit D was normal. Now taking multivitamin. Patient feels well at this time and denies any tachycardia, palpitations, heat intolerance, tremor,insomnia, diarrhea, or unexplained weight loss. Patient also denies cold intolerance, constipation,or unexplained weight gain. PMH/PSH: Past Medical History: Diagnosis Date Hx of abnormal cervical Pap smear see problem list Obesity, unspecified Other and unspecified hyperlipidemia Type II or unspecified type diabetes mellitus without mention of complication, not stated as uncontrolled Unspecified essential hypertension Past Surgical History: Procedure Laterality Date CYSTOSCOPY CYSTOSCOPY, RETROGRADES, EXTRACT STONE, COMBINED Right 12/29/2019 Procedure: Video cystoscopy, right double-J stent removal, flexible ureteroscopy and rhinoscopy with stone extraction, holmium laser standby; Surgeon: Ricky Stanley MD; Location: OR CYSTOSCOPY, RETROGRADES, INSERT STENT URETER(S), COMBINED Right 12/14/2019 Procedure: CYSTOSCOPY, WITH RETROGRADE PYELOGRAM AND RIGHT URETERAL JJ STENT INSERTION, URETHRAL DILATION; Surgeon: Ricky Stanley MD; Location: OR EXCISE MASS FINGER Right 11/07/2020 Right long fingertip lumpectomy (excision of scar tissues mass), Dr. Chris Lemon, [facility] Family Hx: Family History Problem Relation Age of Onset Diabetes Mother Breast Cancer Mother Heart Disease Mother Cancer Mother Hypertension Mother Diabetes Father Prostate Cancer Father Cancer Father Hypertension Father Diabetes Sister Heart Disease Sister Cancer Sister Cervical cancer Glaucoma No family hx of Macular Degeneration No family hx of Thyroid disease: No DM2: Yes: mother, father, sister Autoimmune: DM1, SLE, RA, Vitiligo No Social Hx: Social History Socioeconomic History Marital status: Spouse name: Jovanni Number of children: 0 Years of education: Not on file Highest education level: Not on file Occupational History Employer: NONE Tobacco Use Smoking status: Never Smokeless tobacco: Never Vaping Use Vaping status: Never Used Substance and Sexual Activity Alcohol use: Yes Alcohol/week: 0.0 standard drinks of alcohol Comment: wine Drug use: No Sexual activity: Yes Partners: Male Other Topics Concern Parent/sibling w/ CABG, NV or angioplasty before 65F 55M? Yes Social History Narrative Not on file Social Determinants of Health Financial Resource Strain: Low Risk (12/24/2023) Financial Resource Strain Within the past 12 months, have you or your family members you live with been unable to get utilities (heat, electricity) when it was really needed?: No Food Insecurity: Low Risk (12/24/2023) Food Insecurity Within the past 12 months, did you worry that your food would run out before you got money to buy more?: No Within the past 12 months, did the food you bought just not last and you didn???t have money to getmore?: No Transportation Needs: Low Risk (12/24/2023) Transportation Needs Within the past 12 months, has lack of transportation kept you from medical appointments, getting your medicines, non-medical meetings or appointments, work, or from getting things that you need?: No Physical Activity: Sufficiently Active (12/24/2023) Exercise Vital Sign Days of Exercise per Week: 5 days Minutes of Exercise per Session: 60 min Stress: No Stress Concern Present (12/24/2023) [facility] [place] [facility] - Occupational Stress Questionnaire Feeling of Stress : Only a little Social Connections: Unknown (03/16/2024) Received from [employer] [facility] Social Connections Frequency of Communication with Friends and Family: Not on file Interpersonal Safety: Not on file Housing Stability: Low Risk (12/24/2023) Housing Stability Do you have housing? : Yes Are you worried about losing your housing?: No MEDICATIONS: has a current medication list which includes the following prescription(s): accu-chek guide, amlodipine, aspirin, blood glucose monitoring, farxiga, glipizide, lisinopril, metformin, pravastatin, andtrulicity. ROS ROS: 10 point ROS neg other than the symptoms noted above in the HPI. Vitals: BP 111/70 (BP Location: Left arm, Patient Position: Chair, Cuff Size: Adult Regular) Pulse 68 Temp 98.1 ??F (36.7 ??C) (Tympanic) Resp 16 Ht 1.524 m (5') Wt 60.7 kg (133 lb 12.8 oz) LMP 12/19/2015 SpO2 96% No BMI 26.13 kg/m?? GENERAL: healthy, alert and no distress EYES: Eyes grossly normal to inspection, conjunctivae and sclerae normal ENT: no nose swelling, nasal discharge. Thyroid: no apparent thyroid nodules. Thyroid appears normal in size and nontender. CV: RRR, no rubs, gallops, no murmurs RESP: CTAB, no wheezes, rales, or ronchi ABDO: +BS EXTREMITIES: no hand tremors. NEURO: Cranial nerves grossly intact, mentation intact and speech normal SKIN: No apparent skin lesions, rash or edema seen PSYCH: mentation appears normal, affect normal/bright, judgement and insight intact, normal speech and appearance well-groomed LABS: A1c: Lab Results Component Value Date A1C 7.7 11/18/2023 A1C 7.9 01/05/2023 A1C 8.1 09/08/2022 A1C 7.8 05/16/2022 A1C 8.2 01/06/2022 A1C 8.2 10/08/2020 A1C 7.4 04/18/2020 A1C 7.4 09/20/2019 A1C 7.5 09/08/2019 A1C 7.4 06/03/2019 Basic Metabolic Panel: Creatinine Date Value Ref Range Status 11/18/2023 0.68 0.51 - 0.95 mg/dL Final 12/14/2019 0.96 0.52 - 1.04 mg/dL Final LFTS/Cholesterol Panel: Recent Labs Lab Test 12/24/23 0958 01/05/23 1130 CHOL 155 140 HDL 42* 35* LDL 88 84 TRIG 126 106 Urine MicroAlbumin: Lab Results Component Value Date UMALCR 11/18/2023 Comment: Unable to calculate, urine albumin and/or urine creatinine is outside detectable limits. Microalbuminuria is defined as an albumin:creatinine ratio of 17 to 299 for males and 25 to 299 forfemales. A ratio of albumin:creatinine of 300 or higher is indicative of overt proteinuria. Due to biologic variability, positive results should be confirmed by a second, first-morning randomor 24-hour timed urine specimen. If there is discrepancy, a third specimen is recommended. When 2 out of 3 results are in the microalbuminuria range, this is evidence for incipient nephropathy and warrants increased efforts at glucose control, blood pressure control, and institution of therapy withan iiirkopztqi-dybzmftwka-fmowoo (RENETTA) inhibitor (if the patient can tolerate it). UMALCR 19.40 01/06/2022 UMALCR 16.61 10/08/2020 Vitamin D: Vitamin D Deficiency Screening Results: Lab Results Component Value Date VITDT 35 09/26/2021 VITDT 37 02/12/2021 VITDT 41 09/08/2019 VITDT 42 06/03/2019 VITDT 40 02/11/2018 All pertinent notes, labs, and images personally reviewed by me. A/P Ms.Bibi Gabi Perera is a 60 year old evaluated via phone visit for the management of: 1. DM2 - A1c 7.7% Mostly checking fasting blood sugar and blood sugars are mostly in acceptable range. No major episodes of hypoglycemia noted/reported. Plan: Discussed diagnosis, pathophysiology, management and treatment options of condition with pt. I also discussed importance of strict blood sugar control to prevent complications associated with uncontrolled diabetes. For vaginal infection--prescription sent for fluconazole- take 150 mg tab X 1 time ( vaginal infection) Labs needed. STOP Farxiga (in the setting of vaginal infection and expensive for patient) Continue Metformin 1000 mg twice a day. Increase Glipizide XL to 15 mg in AM with food ( take 3 tab of 5 mg) Continue Trulicity to 4.5 mg weekly. Follow up with Kayce THOMAS in 6 months with labs prior. Repeat labs and follow up with in 6 month after that. Discussed possibility of using another rick sample prior to that but she is not interested. Please make a lab appointment for blood work and follow up clinic appointment in 1 week after that to discuss results. 2. Blood pressure: On amlodipine 5 mg and lisinopril 40 mg. 3. Hyperlipidemia - Currently treated with Pravastatin 40 mg qd. LDL 88. plan to continue. Monitor lipid panel annually. 4. Vitamin D deficiency, resolved: Started vitamin D 50,000 IU weekly in early August 2015. She was taking D 50,000 IU weekly. Follow-up vitamin D in range Plan to continue monitor. Prevention: Flu Shot- Recommend annually Pneumovax- 03/2015 Opthalmology - nonproliferative diabetic retinopathy . Due this year. Dental-Yes ASA-Yes, 81 mg qd Smoking- No Foot exam- 11/18/2023 Plan: Hemoglobin A1c, glipiZIDE (GLUCOTROL XL) 5 MG 24 hr tablet, fluconazole (DIFLUCAN) 150 MG tablet, Dulaglutide (TRULICITY) 4.5 MG/0.5ML SOPN, metFORMIN (GLUCOPHAGE) 1000 MG tablet, Hemoglobin A1c, Albumin Random Urine Quantitative with Creat Ratio, Creatinine Most Recent Immunizations Administered Date(s) Administered COVID-19 12+ (Pfizer) 12/24/2023 COVID-19 Bivalent 18+ (Moderna) 04/11/2022 COVID-19 Monovalent 18+ (Moderna) 11/14/2021 Influenza (H1N1) 08/21/2009 Influenza (IIV3) PF 05/06/2010 Influenza Vaccine 18-64 (Flublok) 04/11/2022 Influenza Vaccine >6 months,quad, PF 04/07/2017 Mantoux Tuberculin Skin Test 08/25/2023 Pneumococcal 20 valent Conjugate (Prevnar 20) 01/06/2022 Pneumococcal 23 valent 03/27/2015 TD,PF 7+ (Tenivac) 12/27/1999 TDAP (Adacel,Boostrix) 08/21/2015 TDAP Vaccine (Adacel) 08/21/2009 TDAP Vaccine (Boostrix) 08/21/2015 Zoster recombinant adjuvanted (SHINGRIX) 05/22/2020 Discussed indications, risks and benefits of all medications prescribed, and answered questions to patient's satisfaction. The longitudinal plan of care for the diagnosis(es)/condition(s) as documented were addressed during this visit. Due to the added complexity in care, I will continue to support Meredith in the subsequentmanagement and with ongoing continuity of care. All questions were answered. The patient indicates understanding of the above issues and agrees with the plan set forth. Follow-up: As noted in AVS Kacy Reyes MD Endocrinology [facility] CC: Morris Monreal documented in this encounter Nursing Notes * Bernadette Hanson CMA - 04/28/2024 2:00 PM CDT ENDOCRINOLOGY INTAKE FORM Patient Name: Meredith Perera : 1960 Is patient Diabetic? Yes: type 2 Does patient have non-diabetic or other endocrine issues? Yes: hyperlipidemia Vitals: LMP 12/19/2015 BMI= There is no height or weight on file to calculate BMI. Flu vaccine: No Pneumonia vaccine: Yes: 23 x 1, 20 x 1 Smoking and Alcohol use: Social History Tobacco Use Smoking status: Never Smokeless tobacco: Never Vaping Use Vaping status: Never Used Substance Use Topics Alcohol use: Yes Alcohol/week: 0.0 standard drinks of alcohol Comment: wine Drug use: No Foot Exam: Yes: 11/18/23 Eye Exam: Yes, 1 month ago at [facility] Exam: Aspirin Use: Yes: 81 mg Lab Results Component Value Date A1C 7.7 11/18/2023 A1C 7.9 01/05/2023 A1C 8.1 09/08/2022 A1C 7.8 05/16/2022 A1C 8.2 01/06/2022 A1C 8.2 10/08/2020 A1C 7.4 04/18/2020 A1C 7.4 09/20/2019 A1C 7.5 09/08/2019 A1C 7.4 06/03/2019 Lab Results Component Value Date MICROL <12.0 11/18/2023 MICROL 13 01/06/2022 MICROL 14 10/08/2020 No results found for: MICROALBUMIN Lidia Hanson CMA [facility] Endocrinology [place] [phone] * Bernadette Hanson CMA - 04/28/2024 2:00 PM CDT Images from the original note were not included. documented in this encounter Plan of Treatment Upcoming Encounters Date Type Department Care Team (Latest Contact Info) Description 06/24/2024 8:30 AM KILN FURNITURE SAW TENDER Office Visit [facility] [address] [place] [phone] [place] [address] [place] [address] 07/29/2024 10:45 AM KILN FURNITURE SAW TENDER Ancillary Procedure [facility] [address] [place] [phone] David Lau PA-C [address] [place], [place] [id number] Visit for screening mammogram 10/31/2024 3:00 PM CDT Office Visit [facility] [address] [place] [address] Kayce Jasso PA-C [address] [place] [address] 01/02/2025 10:00 AM CDT Office Visit [facility] [address] [place] [phone] David Lau PA-C [address] [place], [place] [phone] 05/03/2025 1:00 PM CDT Office Visit [facility] [address] [place] [address] Kacy Reyes MD [address] [place] [address] Scheduled Orders Name Type Priority Associated Diagnoses Orde r Schedule Hemoglobin A1c Lab Routine Type 2 diabetes mellitus with stage 1 chronic kidney disease, without long-term current use of insulin (H) Expected: 10/27/2024 (Approximate), Expires: 04/28/2025 Albumin Random Urine Quantitative with Creat Ratio Lab Routine Type 2 diabetes mellitus with stage 1 chronic kidney disease, without long-term current use of insulin (H) Expected: 10/27/2024 (Approximate), Expires: 04/28/2025 Creatinine Lab Routine Type 2 diabetes mellitus with stage 1 chronic kidney disease, without long-term current use of insulin (H) Expected: 10/27/2024 (Approximate), Expires: 04/28/2025 documented as of this encounter Procedures Procedure Name Priority Date/Time Associated Diagnosis Comments HEMOGLOBIN A1C Routine 04/28/2024 2:47 PM CDT Type 2 diabetes mellitus with stage 1 chronic kidney disease, without long-term current use of insulin (H) CREATININE Routine 04/28/2024 2:47 PM CDT Type 2 diabetes mellitus with stage 1 chronic kidney disease, without long-term current use of insulin (H) documented in this encounter Results * Creatinine (04/28/2024 2:47 PM CDT) Creatinine 0.61 0.51 - 0.95 mg/dL 04/29/2024 3:01 AM CDT [facility] GFR Estimate >90 >60 mL/min/1.7 3m2 04/29/2024 3:01 AM CDT [facility] Comment:eGFR calculated usin 2020 CKD-EPI equation. Blood BLOOD SPECIMEN / Unknown Venipuncture / Unknown 04/28/2024 2:47 PM CDT 04/28/2024 2:47 PM CDT Kacy Reyes MD LAB - BLOOD ORDERABLES Fi nal Result [facility] [address] [facility], [address] [place] [address], [facility] [email or web address]] * (ABNORMAL) Hemoglobin A1c (04/28/2024 2:47 PM CDT) Estimated Average Glucose 189(H) <117 mg/dL 04/28/2024 3:02 PM CDT [facility] Hemoglobin A1C 8.2(H) 0.0 - 5.6 % 04/28/2024 3:02 PM CDT [facility] Comment: Normal <5.7% Prediabetes 5.7-6.4% Diabetes 6.5% or higher Note: Adopted from ADA consensus guidelines. Blood BLOOD SPECIMEN / Unknown Venipuncture / Unknown 04/28/2024 2:47 PM CDT 04/28/2024 2:47 PM CDT Narrative [facility] - 04/28/2024 3:02 PM CDT Results consistent with previous, repeat testing unnecessary Kacy Reyes MD LAB - BLOOD ORDERABLES Fi nal Result [facility] [address], [address] [place] [address], [facility] [[email or web address]] documented in this encounter Visit Diagnoses Diagnosis Type 2 diabetes mellitus with stage 1 chronic kidney disease, without long-term current use of insulin (H)- Primary Visit for screening mammogram Other screening mammogram documented in this encounter Care Teams Senior Training Specialist Relationship Specialty [place] [address] [place] [address] PCP - General Family Medicine 12/18/23 06/02/24 Kacy Reyes MD [address] [place] [address] Assigned Endocrinology Provider 12/10/23 [place] [address] [place] [address] Assigned PCP 01/10/24 documented as of this encounter
--- OUTSIDE RECORDS SUMMARY | 2024-06-20 19:33 | XMS_ITS | Encounter Summary ---
Author Organization [place] Address [facility] [place] [address] Care Team Providers Care Nail Maker Name Role Phone Kacy Reyes MD Unavailable [phone] Tru Dasilva MD Primary Care Provider [phone] Tru Dasilva MD Unavailable Encounter Details Date Type Department Care Team (Latest Contact Info) Description 04/28/2024 Travel Social History Tobacco Use Types Packs/Day Years [...] Answer Date Recorded PHQ-2 Score 0 12/24/[address] [facility] [place] [facility] - Occupational Stress [...] on file Legal Sex Female 3:19 AM GAS BRAZER Gender Identity Not on file Sexual Orientation Not on file Occupation Industry Job Start Date Job End Date Not on file Not on file Not on file Not on file documented as of this encounter Plan of Treatment Upcoming Encounters Date Type Department Care Team (Latest Contact Info) Description 06/24/2024 8:30 AM GAS BRAZER Office Visit [facility] [address] [place] [phone] [place] [id number] [place] [phone] 07/29/2024 10:45 AM GAS BRAZER Ancillary Procedure [facility] [address] [place] [phone] David Lau PA-C [address] [place], [place] [phone] Visit for screening mammogram 10/31/2024 3:00 PM CDT Office Visit [place] [address] [facility] [address] [place] [phone] Kayce Jasso PA-C [address] [place], [place] [phone] 01/02/2025 10:00 AM CDT Office Visit [facility] [address] [place] [phone] David Lau PA-C [address] [place], [place] [phone] 05/03/2025 1:00 PM CDT Office Visit [place] [address] [facility] [address] [place] [phone] Kacy Reyes MD [address] [place] [phone] documented as of this encounter Visit Diagnoses Not on filedocumented in this encounter Care Teams Nail Maker Relationship Specialty [place] [address] [place] [address] PCP - General Family Medicine 12/18/23 06/02/24 Kacy Reyes MD [address] [address] [place], [place] [phone] Assigned Endocrinology Provider 12/10/23 [place] [address] [place] [address] Assigned PCP 01/10/24 documented as of this encounter
--- OUTSIDE RECORDS SUMMARY | 2024-06-20 19:33 | XMS_ITS | Clinical Summary ---
Author Organization [place] Address [address] 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 1 kit 11/24/19 20 Active ACCU-CHEK GUIDE test stripIndications:Hy perlipidemia LDL goal <100,Vitamin D deficiency,HTN, goal below 140/90 USE TO TEST BLOOD SUGAR THREE TIMES A DAY OR DIRECTED 300 strip 09/15/19 24 Active amLODIPine (NORVASC) 5 MG tabletIndications:E ssential hypertension, benign TAKE 1 TABLET (5 MG) BY MOUTH DAILY 90 tablet 02/15/20 24 Active glipiZIDE (GLUCOTROL XL) 5 MG 24 hr tabletIndications:T ype 2 diabetes mellitus with stage 1 chronic kidney disease, without long-term current use of insulin (H) Take 3 tablets (15 mg) by mouth daily. 270 tablet 2 04/28/20 24 Active Dulaglutide (TRULICITY) 4.5 MG/0.5ML SOPNIndications:Typ e 2 diabetes mellitus with stage 1 chronic kidney disease, without long-term current use of insulin (H) Inject 4.5 mg subcutaneously once a week. 6 mL 2 04/28/20 24 Active metFORMIN (GLUCOPHAGE) 1000 MG tabletIndications:T ype 2 diabetes mellitus with stage 1 chronic kidney disease, without long-term current use of insulin (H) Take 1 tablet (1,000 mg) by mouth 2 times daily (with meals). 180 tablet 1 04/28/20 24 Active lisinopril (ZESTRIL) 40 MG tabletIndications:E ssential hypertension, benign TAKE ONE TABLET BY MOUTH ONCE DAILY 90 tablet 1 05/16/20 24 Active pravastatin (PRAVACHOL) 40 MG tabletIndications:H yperlipidemia LDL goal <100 TAKE ONE TABLET BY MOUTH ONCE DAILY 90 tablet 1 05/16/20 24 Active blood glucose (NO BRAND SPECIFIED) lancets standardIndications :Type 2 diabetes mellitus with stage 1 chronic kidney disease, without long-term current use of insulin (H) Use to test blood sugar 3 times daily. 300 each 1 06/07/20 24 Active Active Problems Problem Noted Date Diagnosed Date Seasonal allergic rhinitis 12/24/2023 Assessment & Plan (12/24/2023 9:34 AM CDT): Uses benadryl as needed. Type 2 diabetes mellitus wit h both eyes affected by 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, without long-term current use of insulin 01/06/2022 Assessment & Plan (12/24/2023 9:27 AM CDT): Diabetes is well controlled, A1c is 7.7. Continue current treatment regimen. Continue on semaglutide, metformin 1000 mg twice daily, and Glipizide, and Dapagliflorzin. Diabetes will be reassessed in 6 months. Renal calculus, right 12/27/2019 Overview (12/27/2019): Added automatically from request for surgery [id number] Renal colic 12/13/2019 Right ureteral stone 12/13/2019 Overview (12/13/2019): Added automatically from request for surgery [id number] Bilateral incipient cataracts 09/15/2018 Dry eye 09/15/2018 Vitamin D deficiency 08/22/2015 Anxiety 10/08/2011 Hyperlipidemia LDL goal <100 05/19/2010 Assessment & Plan (12/24/2023 9:31 AM CDT): Controlled, continue on Pravastatin 40 mg daily. Benign neoplasm of skin of trunk, except scrotum 08/01/2003 Essential hypertension, benign 08/01/2003 Assessment & Plan (12/24/2023 9:30 AM CDT): Controlled. Continue on Amlodipine 5 mg and Lisinopril 20 Check BMP Resolved Problems Problem Noted Date Diagnosed Date Resolved Date Asthma 06/18/2020 12/24/2023 Type 2 diabetes mellitus without retinopathy 9 05/16/2022 Morbid obesity 12/29/2017 01/06/2022 Other epilepsy without statu s epilepticus, not intractable 12/29/2017 01/06/2022 Type 2 diabetes mellitus wit h microalbuminuria, without long-term current use of insulin 08/17/2017 05/16/2022 Overview (03/03/2018): Follow up visits required every 4 months BMI 28.0-28.9,adult 04/07/2017 12/24/19 24 Type 2 diabetes, uncontrolle d, with non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 08/21/2015 05/16/2022 Type 2 diabetes mellitus, uncontrolled 05/16/2015 08/17/2017 HTN, goal below 140/90 07/16/201312/23 Diabetes mellitus, type 2 09/05/2010 Overview (04/20/2015): Problem list name updated by automated process. Provider to review Type 2 diabetes, HbA1c goal < 7% 05/19/2010 05/16/2015 ATYP on pap smear 06/10/2006 01/18/2024 Overview (01/18/2024): 08/25/2005 ATYP 11/27/2005 NIL 06/10/2006 ATYP 09/30/2006 ASCUS, neg HPV 05/31/2007 NIL 11/29/2007 NIL 09/13/2008 NIL 08/21/2009 NIL 09/10/2010 NIL, +EM cells 09/30/2011 NIL, +EM cells 10/25/2014 NIL 04/07/2017 NIL, neg HR HPV, +EM cells 09/20/2019 NIL, neg HR HPV. Plan cotest in 3 years 12/24/23 NIL pap, neg HPV. Screening discontinued per provider. Assessment & Plan (12/24/2023 9:28 AM CDT): Hx of positive EM cells in 2016, normal in 2019. Will repeat another pap smear today. Mixed hyperlipidemia 2005 011 Diabetes mellitus, type 2 08/01/2003 Overview (04/19/2015): Problem list name updated by automated process. Provider to review Obesity 08/01/2003 12/29/2017 Overview (04/19/2015): Problem list name updated by automated process. Provider to review Encounters Date Type Department Care Team Description 06/07/2024 Telephone [facility] [address] [place] [phone] Kacy Reyes MD Refill Request (Softclix lancets) 05/25/[address] [phone] Tru Dasilva MD Panel Management 05/16/2024 Refill [facility] [address] [place] [phone] Kacy Reyes MD Medication Refill 04/28/2024 2:00 PM CDT Office Visit [facility] [address] [place] [address] Kacy Reyes MD Type 2 diabetes mellitus with stage 1 chronic kidney disease, without long-term current use of insulin (H) (Primary Dx) 04/28/2024 Travel 04/26/2024 Telephone [facility] [address] [place] [phone] Kacy Reyes MD Call Back 04/14/2024 Refill [facility] [address] [place] [address] Kacy Reyes MD Medication Refill 04/05/2024 Refill [facility] [address] [place] [address] Kacy Reyes MD Medication Refill from Last 3 Months Immunizations Name Administration Dates Next Due COVID-19 12+ (Pfizer) 12/24/2023 COVID-19 Bivalent 18+ (Moderna) 04/11/2022 COVID-19 Monovalent 18+ (Moderna) 2021,05/28/2021,09/04/2020,2020 Influenza (H1N1) 08/21/2009 Influenza (IIV3) PF 05/06/2010 Influenza Vaccine 18-64 (Flublok) 2021,04/17/2021,03/20/2020,2018,05/14/2018 Influenza Vaccine >6 months,quad, PF ,05/22/2016,04/23/2015,2013 Mantoux Tuberculin Skin Test 08/25/2023,02/23/20 07 Pneumococcal 20 valent Conju gate (Prevnar 20) 01/06/2022 Pneumococcal 23 valent 03/27/2015 TD,PF 7+ (Tenivac) 12/27/1999 TDAP (Adacel,Boostrix) 08/21/2015 TDAP Vaccine (Adacel) 08/21/2009 TDAP Vaccine (Boostrix) 08/21/2015 Zoster recombinant adjuvante d (SHINGRIX) 05/22/2020,03/20/2020 Family History Medical History Relation Comments Cancer Father Diabetes Father Hypertension Father Prostate Cancer Father Breast Cancer Mother Cancer Mother Diabetes Mother Heart Disease Mother Hypertension Mother Diabetes Sister 3 Heart Disease Sister 4 Cancer Sister 5 Cervical cancer Glaucoma No family hx of Macular Degeneration No family hx of Relation Status Comments Brother Alive x1 Father (Age 64) Maternal Grandfather Maternal Grandmother Mother (Age 62) Paternal Grandfather Paternal Grandmother Sister 1 Alive x6 Sister 2 (Age 48) x1 Sister 3 Sister 4 Sister 5 Social History Tobacco Use Types Packs/Day Years Used Date Smoking Tobacco: Never Smokeless Tobacco: Never Tobacco Cessation:Counseling Given: No Alcohol Use Standard Drinks/Week Comments Yes 0 (1 standard drink = 0.6 oz pur e alcohol) wine Social Connection and Isolation Panel [NHANES] A nswer Date Recorded Frequency of Communication with Friends and Fami ly Not on file 12/24/2023 How often do you get together with friends or re latives? Once a week 12/24/2023 Attends Jain Services Not on file 12/23 Active Member of Clubs or Organizations Not on f ile 12/24/2023 Attends Club or Organization Meetings Not on rachele e 12/24/2023 Marital Status Not on file 12/24/2023 PHQ-2 Answer Date Recorded PHQ-2 Score 0 12/24/2023 [facility] - Occupational [...] Date Recorded Do you have housing? 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 Gender Identity Not on file Sexual Orientation Not on file Occupation Industry Job Start Date Job End Date Not on file Not on file Not on file Not on file Last Filed Vital Signs Vital Sign Reading [...] Mass Index 26.13 04/28/2024 1:59 PM CDT Plan of Treatment Upcoming Encounters Date Type Department Care Team (Latest Contact Info) Description 06/24/2024 8:30 AM ENGLISH LANGUAGE LEARNER TEACHER Office Visit [facility] [id number] [place] [phone] [place] [id number] [place] [address] 07/29/2024 10:45 AM ENGLISH LANGUAGE LEARNER TEACHER Ancillary Procedure [facility] [address] [place] [phone] David Lau PA-C [address] [place], [place] [phone] Visit for screening mammogram 10/31/2024 3:00 PM CDT Office Visit [facility] [address] [facility] [address] [place] [phone] Kayce Jasso PA-C [address] [place] [address] 01/02/2025 10:00 AM CDT Office Visit [facility] [address] [place] [phone] David Lau PA-C [address] [place], [place] [phone] 05/03/2025 1:00 PM CDT Office Visit [facility] [address] [facility] [address] [place] [phone] Kacy Reyes MD [address] [place] [address] [address] [place] [address] Health Maintenance Due Date Last Done Comments CT COLONOGRAPHY 1962 FLEX SIG 1962 COLONOSCOPY 1972 RSV VACCINE (1 - Risk 60-74 years 1-dose series) 2022 FIT 01/08/2023 01/08/2022, 07/21, 03/28/2015 MAMMO SCREENING 01/24/2023 01/24/2022, 02/18, 11/29/2018, Additional history exists COVID-19 Vaccine ( season) 2024 12/24/2023, 04/11/2022, 11/14/2021, Additional history exists INFLUENZA VACCINE (#1) 2024 , 04/17/2021, 03/20/2020, Additional history exists A1C 08/29/2024 04/28/2024, 05/0 07/2023, 01/05/2023, Additional history exists BMP 11/17/2024 11/18/2023, 07/0 11/2022, 01/05/2023, Additional history exists DIABETIC FOOT EXAM 11/17/2024 11/18/2023, 0 09/26/2021, 06/03/2019, Additional history exists MICROALBUMIN 11/17/2024 11/18/2023, 12/18, 01/06/2022, Additional history exists ANNUAL REVIEW OF HM ORDERS 12/23/202412/23, 01/06/2022, 10/08/2020, Additional history exists LIPID 12/23/2024 12/24/2023, 12/18, 01/06/2022, Additional history exists YEARLY PREVENTIVE VISIT 12/23/2024 12/24/19 24, 10/08/2020, 09/20/2019, Additional history exists EYE EXAM 03/15/2025 03/15/2024, 03/0 07/2022, 09/17/2022, Additional history exists CREATININE 04/28/2025 04/28/2024, 05/0 07/2023, 01/21/2023, Additional history exists DTAP/TDAP/TD IMMUNIZATION (4 - Td or Tdap) 08/21/2025 08/21/2015, 08/21/2015, 08/21/2009, Additional history exists COLORECTAL CANCER SCREENING 01/07/2027 sDNA (Cologuard) 01/07/2027 01/08/2024, 01/08/2024 ADVANCE CARE PLANNING 12/23/2028 12/24/2023, 020 HIV SCREENING Completed 12/29/2017 HEPATITIS C SCREENING Completed 05/14/2018 ZOSTER IMMUNIZATION Completed 05/22/2020, Pneumococcal Vaccine: Pediatrics (0 to 5 Years) and At-Risk Patients (6 to 64 Years) Completed 01/06/2022, 03/27/2015 HPV TEST Discontinued 12/24/2023, 09/2019, 04/07/2017 PAP Discontinued 12/24/2023, 12/2023, 09/20/2019, Additional history exists PHQ-2 (once per calendar year) Completed 12/24/2023, 01/15/2023, 10/31/2022, Additional history exists HPV IMMUNIZATION Aged Out No longer e ligible based on patient's age to complete this topic MENINGITIS IMMUNIZATION Aged Out No l onger eligible based on patient's age to complete this topic RSV MONOCLONAL ANTIBODY Aged Out No l onger eligible based on patient's age to complete this topic Medical Devices Explanted Type Area Mediation Commissioner Device Identifier Shelf Expiration Date Model / Serial / Lot Stent Ureteral Polaris Ultra [id number] Implanted:Qty: 1 on 12/14/2019 by Jennyfer Stanley MD at [facility] Explanted:Qty: 1 on 12/29/2019 by Jennyfer Stanley MD at [facility] Stent Right: Urethra [employer] 02/24/2022 [id number] / / [id number] Procedures Procedure Name Priority Date/Time Associated Diagnosis Comments CREATININE Routine 04/28/2024 2:47 PM CDT Type 2 diabetes mellitus with stage 1 chronic kidney disease, without long-term current use of insulin (H) HEMOGLOBIN A1C Routine 04/28/2024 2:47 PM CDT Type 2 diabetes mellitus with stage 1 chronic kidney disease, without long-term current use of insulin (H) EYE EXAM - HIM SCAN Routine 03/15/2024 COLOGUARD([employer] SCI[employer]) Routine 01/08/2024 12:00 AM CDT Screen for colon cancer LIPID REFLEX TO DIRECT LDL PANEL Routine 12/24/2023 9:58 AM CDT Type 2 diabetes mellitus with both eyes affected by 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, without long-term current use of insulin (H) HPV AND GYNECOLOGIC CYTOLOGY PANEL Routine 12/24/2023 9:37 AM CDT Cervical cancer screening ATYP on pap smear ALBUMIN RANDOM URINE QUANTITATIVE Routine 11/18/2023 10:26 AM CDT Type 2 diabetes mellitus with stage 1 chronic kidney disease, without long-term current use of insulin (H) BASIC METABOLIC PANEL Routine 11/18/2023 10:07 AM CDT Diarrhea, unspecified type MA SCREENING DIGITAL BILATERAL Routine 01/24/2022 1:58 PM CDT Visit for screening mammogram FECAL COLORECTAL CANCER SCREEN FIT Routine 01/08/2022 9:06 AM CDT Screen for colon cancer HEPATITIS C SCREEN REFLEX TO HCV RNA QUANT AND GENOTYPE Routine 05/14/2018 9:50 AM CDT Encounter for HCV screening test for high risk patient HIV ANTIGEN ANTIBODY COMBO Routine 12/29/2017 11:16 AM CDT Encounter for HCV screening test for low risk patient C FOOT EXAM Routine 03/27/2015 10:30 AM CDT Screening for diabetic peripheral neuropathy from Last 3 Months or Most Recently Relevant to Health Maintenance Results * (ABNORMAL) Hemoglobin A1c (04/28/2024 2:47 PM [...] BLOOD ORDERABLES Fi nal Result [facility] [address] [place] [address] * Creatinine (04/28/2024 2:47 PM CDT) [facility] Creatinine 0.61 0.51 - 0.95 mg/dL 04/29/2024 3:01 AM CDT [facility] GFR Estimate >90 >60 mL/min/1.7 3m2 04/29/2024 3:01 AM CDT [facility] Comment:eGFR calculated us2020 CKD-EPI equation. Blood BLOOD SPECIMEN / Unknown Venipuncture / Unknown 04/28/2024 2:47 PM CDT 04/28/2024 2:47 PM CDT Kacy Reyes MD LAB - BLOOD ORDERABLES Fi nal Result U [facility] [address] [facility], [address] [place] [phone] * Eye Exam - HIM Scan (03/15/2024) [facility] RETINOPATHY UNKNOWN Narrative Debra Navarro - 03/15/2024 Bernadette Hanson CMA Eye exam with ophthalmology on this date: 03/15/24 Exam Location: [facility] - in Care Everywhere Patient Reported OTHER Final Result * COLOGUARD([employer]) (01/08/2024 12:00 AM CDT) [facility] COLOGUARD-ABSTRACT Negative Negative 2023 9:21 PM CDT [employer] (CLIA #:[id number]) Comment: NEGATIVE TEST RESULT. A negative Cologuard result indicates a low likelihood that a colorectal cancer (CRC) or advanced adenoma (adenomatous polyps with more advanced pre-malignant features) is present. The chance that a person with a negative Cologuard test has a colorectal cancer is less than 1 in 1500 (negative predictive value >99.9%) or has an advanced adenoma is less than 5.3% (negative predictive value 94.7%). These data are based on a prospective cross-sectional study of 10,000 individuals at average risk for colorectal cancer who were screened with both Cologuard and colonoscopy. (Tio Pryor et al, N Engl J Med 2014;370(14):3015-0191) The normal value (reference range) for this assay is negative. COLOGUARD RE-SCREENING RECOMMENDATION: Periodic colorectal cancer screening is an important part of preventive healthcare for asymptomatic individuals at average risk for colorectal cancer. Following a negative Cologuard result, the [place] Cancer Society and U.S. Multi-Society Task Force screening guidelines recommend a Cologuard re-screening interval of 3 years. References: [place] [employer] Guideline for Colorectal Cancer Screening: https://www.cancer.org/cancer/uxfcg-wmcowx-ilqxjy/nuzlhnqse-vmnybkyav-dykwiyg/ac s-rec ommendations.html.; Wander DK, Adrian CR, Nadiya PettyK, Colorectal Cancer Screening: Recommendations for Physicians and Patients from the U.S. Multi-Society Task Force on Colorectal Cancer Screening , Am J Gastroenterology 2017; 112:1726-2982. TEST DESCRIPTION: Composite algorithmic analysis of stool DNA-biomarkers with hemoglobin immunoassay. Quantitative values of individual biomarkers are not reportable and are not associated with individual biomarker result reference ranges. Cologuard is intended for colorectal cancer screening of adults of either sex, 45 years or older, who are at average-risk for colorectal cancer (CRC). Cologuard has been approved for use by the U.S. FDA. The performance of Cologuard was established in a cross sectional study of average-risk adults aged 50-84. Cologuard performance in patients ages 45 to 49 years was estimated by sub-group analysis of near-age groups. Colonoscopies performed for a positive result may find as the most clinically significant lesion: colorectal cancer [4.0%], advanced adenoma (including sessile serrated polyps greater than or equal to 1cm diameter) [20%] or non- advanced adenoma [31%]; or no colorectal neoplasia [45%]. These estimates are derived from a prospective cross-sectional screening study of 10,000 individuals at average risk for colorectal cancer who were screened with both Cologuard and colonoscopy. (Tio Carlson al, N Engl J Med 2014;370(14):8824-5526.) Cologuard may produce a false negative or false positive result (no colorectal cancer or precancerous polyp present at colonoscopy follow up). A negative Cologuard test result does not guarantee the absence of CRC or advanced adenoma (pre-cancer). The current Cologuard screening interval is every 3 years. ([place] [employer] Society and U.S. Multi-Society Task Force). Cologuard performance data in a 10,000 patient pivotal study using colonoscopy as the reference method can be accessed at the following location: www.[employer]/results. Additional description of the Cologuard test process, warnings and precautions can be found at www.flck.meogAltitude Gamesrd.com. Stool specimen (specimen) 01/08/2024 01/09/2024 10:43 AM CDT Tru Dasilva MD LABORATORY Final Result [facility] [address] [phone] [employer] (CLIA #:[id number]) [address] [place] [address] * (ABNORMAL) Lipid panel reflex to direct LDL Non-fasting (12/24/2023 9:58 AM CDT) Cholesterol 155 <200 mg/dL 12/25/2023 9:23 AM CDT [facility] Triglycerides 126 <150 mg/dL 12/25/2023 9:23 AM CDT [facility] Direct Measure HDL 42(L) >=50 mg/dL 12/25/2023 9:23 AM CDT [facility] LDL Cholesterol Calculated 88 <=100 mg/dL 12/25/2023 9:23 AM CDT [facility] Non HDL Cholesterol 113 <130 mg/dL 12/25/2023 9:23 AM CDT [facility] Patient Fasting > 8hrs? Unknown 12/25/2023 9:23 AM CDT [facility] Blood BLOOD SPECIMEN / Unknown Venipuncture / Unknown 12/24/2023 9:58 AM CDT 12/24/2023 10:03 AM CDT Narrative [facility] - 12/25/2023 9:23 AM CDT Cholesterol Desirable: <200 mg/dL Triglycerides Normal: Less than 150 mg/dL Borderline High: 150-199 mg/dL High: 200-499 mg/dL Very High: Greater than or equal to 500 mg/dL Direct Measure HDL Female: Greater than or equal to 50 mg/dL Male: Greater than or equal to 40 mg/dL LDL Cholesterol Desirable: <100mg/dL Above Desirable: 100-129 mg/dL Borderline High: 130-159 mg/dL High: 160-189 mg/dL Very High: >= 190 mg/dL Non HDL Cholesterol Desirable: 130 mg/dL Above Desirable: 130-159 mg/dL Borderline High: 160-189 mg/dL High: 190-219 mg/dL Very High: Greater than or equal to 220 mg/dL us Tru Dasilva MD LAB - BLOOD ORDERABLES Final Res ult U [facility]AT[facility] [address] [facility], [address] [place] [phone] * Pap Screen with HPV - Recommended Age 30 - 65 Years (12/24/2023 9:37 AM CDT) Human Papilloma Virus 16 DNA Negative Negative 12/25/2023 9:47 PM CDT [facility] Human Papilloma Virus 18 DNA Negative Negative 12/25/2023 9:47 PM CDT [facility] Human Papilloma Virus Other Negative Negative 12/25/2023 9:47 PM CDT [facility] FINAL DIAGNOSIS This patient's sample is negative for high risk HPV DNA. METHODOLOGY: The [employer] system uses automated extraction, simultaneous amplification of HPV (E6/E7 oncogenes) and beta-globin, followed by real time detection of fluorescent labeled HPV and beta globin using specific oligonucleotide probes. The test specifically identifies types HPV 16 DNA and HPV 18 DNA while concurrently detecting the rest of the high risk types (31, 33, 35, 39, 45, 51, 52, 56, 58, 59, 66 or 68). COMMENTS: This test is not intended for use as a screening device for woman under age 30 with normal cervical cytology. Results should be correlated with cytologic and histologic findings. Close clinical follow up is recommended. 12/25/2023 9:47 PM CDT [facility] Brushing ENDOCERVICAL STRUCTURE / Unknown Non-blood Collection / Unknown 12/24/2023 9:37 AM CDT 12/24/2023 10:28 AM CDT us Tru Dasilva MD LAB - BLOOD ORDERABLES Final Res ult [facility] [address] [facility], [address] [phone] MOLECULAR DIAGNOSTICS Molecular Diagnostics [address] [facility], [address] [phone] * Albumin Random Urine Quantitative with Creat Ratio (11/18/2023 10:26 AM CDT) Creatinine Urine mg/dL 26.6 mg/dL 11/19/2023 7:57 PM CDT [facility] Comment:The reference ranges have not been established in urine creatinine. The results should be integrated into the clinical context for interpretation. Albumin Urine mg/L <12.0 mg/L 2023 7:57 PM CDT [facility] Comment:The reference ranges have not been established in urine albumin. The results should be integrated into the clinical context for interpretation. Albumin Urine mg/g Cr 11/19/2023 7:57 PM CDT [facility] Comment: Unable to calculate, urine albumin and/or urine creatinine is outside detectable limits. Microalbuminuria is defined as an albumin:creatinine ratio of 17 to 299 for males and 25 to 299 for females. A ratio of albumin:creatinine of 300 or higher is indicative of overt proteinuria. Due to biologic variability, positive results should be confirmed by a second, first-morning random or 24-hour timed urine specimen. If there is discrepancy, a third specimen is recommended. When 2 out of 3 results are in the microalbuminuria range, this is evidence for incipient nephropathy and warrants increased efforts at glucose control, blood pressure control, and institution of therapy with an hjsstcdyfue-ghnycipmjb-wrnhyz (RENETTA) inhibitor (if the patient can tolerate it). Urine URINE SPECIMEN / Unknown Non-blood Collection / Unknown 11/18/2023 10:26 AM CDT 11/18/2023 10:26 AM CDT us Kacy Reyes MD LAB - URINE ORDERABLES Fi nal Result [facility] [facility] Core Lab 500 [facility], Room [address] [place] [phone] * (ABNORMAL) Basic metabolic panel (Ca, Cl, CO2, Creat, Gluc, K, Na, BUN) (11/18/2023 10:07 AM CDT) [facility] Sodium 142 135 - 145 mmol/L 11/19/2023 8:06 PM CDT [facility] Comment:Reference intervals for this test were updated on 04/14/2023 to more accurately reflect our healthy population. There may be differences in the flagging of prior results with similar values performed with this method. Interpretation of those prior results can be made in the context of the updated reference intervals. Potassium 4.3 3.4 - 5.3 mmol/L 11/19/2023 8:06 PM CDT [facility] Chloride 106 98 - 107 mmol/L 11/19/2023 8:06 PM CDT [facility] Carbon Dioxide (CO2) 23 22 - 29 mmol/L 11/19/2023 8:06 PM CDT [facility] Anion Gap 13 7 - 15 mmol/L 11/19/2023 8:06 PM CDT [facility] Urea Nitrogen 14.9 8.0 - 23.0 mg/dL 11/19/2023 8:06 PM CDT [facility] Creatinine 0.68 0.51 - 0.95 mg/dL 11/19/2023 8:06 PM CDT [facility] GFR Estimate >90 >60 mL/min/1. 73m2 11/19/2023 8:06 PM CDT [facility] Calcium 9.6 8.8 - 10.2 mg/dL 11/19/2023 8:06 PM CDT [facility] Glucose 286(H) 70 - 99 mg/dL 11/19/2023 8:06 PM CDT [facility] Blood BLOOD SPECIMEN / Unknown Venipuncture / Unknown 11/18/2023 10:07 AM CDT 11/18/2023 10:07 AM CDT Sanjay Mchugh APRN DOUBLER HELPER LAB - BLOOD ORDERABLES Ena l Result [facility] Core Lab [address] [facility], [address] [place] [address] * MA SCREENING DIGITAL BILAT - Future (s+30) (01/24/2022 1:58 PM CDT) Anatomical Region Laterality Modality Breast Bilateral Mammography Narrative 01/27/2022 9:14 AM CDT BILATERAL FULL FIELD DIGITAL SCREENING MAMMOGRAM Performed on: 01/24/22 Compared to: 03/14/2020 and 10/25/2014 Technique: This study was evaluated with the assistance of Computer-Aided Detection. Findings: The breasts have scattered areas of fibroglandular density. There is no radiographic evidence of malignancy. IMPRESSION: ACR BI-RADS Category 1: Negative RECOMMENDED FOLLOW-UP: Annual routine screening mammogram The results and recommendations of this examination will be communicated to the patient. Kali Ventura PA-C IMG MAMMOGRAPHY ORDERA BLES Final Result * Fecal colorectal cancer screen FIT - Future (S+30) (01/08/2022 9:06 AM CDT) Occult Blood Screen FIT Negative Negative 01/08/2022 10:11 PM CDT [facility] Stool RECTAL CONTENTS / Unknown Non-blood Collection / Unknown 01/08/2022 9:06 AM CDT 01/08/2022 9:06 AM CDT Kali Ventura PA-C LAB - STOOLS ORDERABLE S Final Result [facility] 500 [facility] [address], [address] [place] [phone] [phone] * Hepatitis C Screen Reflex to HCV RNA Quant and Genotype (05/14/2018 9:50 AM CDT) Hepatitis C Antibody Nonreactive NR^Nonre active 05/15/2018 12:15 PM CDT [facility] Comment: Assay performance characteristics have not been established for newborns, infants, and children Blood specimen (specimen) 05/14/2018 9:50 AM CDT 05/14/2018 9:51 AM CDT Morris Monreal MD LAB - BLOOD ORDERABLES Final Result [facility] [address] [place] [address] * HIV Antigen Antibody Combo (12/29/2017 11:16 AM CDT) HIV Antigen Antibody Combo Nonreactive NR^Nonrea ctive 12/30/2017 10:10 AM CDT [facility] Comment:HIV-1 p24 Ag & HIV-1 /HIV-2 Ab Not Detected Blood specimen (specimen) 12/29/2017 11:16 AM CDT 12/29/2017 11:17 AM CDT Morris Monreal MD LAB - BLOOD ORDERABLES Final Result [facility] [address] from Last 3 Months or Most Recently Relevant to Health Maintenance Insurance BCBS OUT OF STATE BCBS OUT OF [facility] Advance Directives For more information, please contact: [phone] * Full Code (Latest Code Status on File) Date Activated Date Inactivated Comments 12/14/2019 12:33 PM 12/29/2019 12:59 PM Question Answer Comments Code status determined by: Discussion with patie nt/legal decision maker * Full Code Date Activated Date Inactivated Comments 12/13/2019 2:40 PM 12/14/2019 12:33 PM Question Answer Comments Code status determined by: Discussion with patie nt/legal decision maker Care Teams Insecticide Mixer Relationship Specialty Start Date End Date David Lau PA-C [address] [place] [address] PCP - General Family Medicine 06/03/24 Kacy Reyes MD [address] [place] [address] Assigned Endocrinology Provider 12/10/23 [place] [address] [place] [address] Assigned PCP 01/10/24
--- OUTSIDE RECORDS SUMMARY | 2024-06-20 19:33 | XMS_ITS | Referral Summary ---
Author Organization [place] Address [facility] [place] [address] Care Team Providers Care Director Of Integrated Marketing Name Role Phone Kacy Reyes MD Unavailable [phone] Tru Dasilva MD Unavailable David Lau PA-C Primary Care Provider Encounters Date Type Department Care Team Description 06/07/2024 Telephone [facility] [address] [place] [address] Kacy Reyes MD Refill Request (Softclix lancets) 05/25/[address] [address] Tru Dasilva MD Panel Management 05/16/2024 Refill [facility] [address] [place] [phone] Kacy Reyes MD Medication Refill 04/28/2024 Travel 04/28/2024 2:00 PM CDT Office Visit [facility] [address] [place] [phone] Kacy Reyes MD Type 2 diabetes mellitus with stage 1 chronic kidney disease, without long-term current use of insulin (H) (Primary Dx) 04/26/2024 Telephone [facility] [address] [place] [phone] Kacy Reyes MD Call Back 04/14/2024 Refill [facility] [address] [place] [phone] Kacy Reyes MD Medication Refill 04/05/2024 Refill [facility] [address] [place] [phone] Kacy Reyes MD Medication Refill from Last 3 Months Allergies Active Allergy Reactions Criticality Noted Date [...] (12/27/2019): Added automatically from request for surgery [id number] Renal colic 12/13/2019 Right ureteral stone 12/13/2019 Overview (12/13/2019): Added automatically from request for surgery [id number] Bilateral incipient cataracts 09/15/2018 Dry eye 09/15/2018 [...] updated by automated process. Provider to review Immunizations Name Administration Dates Next Due COVID-19 [...] 08/21/2015 Zoster recombinant adjuvante d (SHINGRIX) 05/22/2020,03/20/2020 Social History Tobacco Use Types Packs/Day Years [...] re latives? Once a week 12/24/2023 Attends [employer] Services Not on file 12/23 Active Member of Clubs or Organizations Not on f ile 12/24/2023 Attends Club or Organization Meetings Not on rachele e 12/24/2023 Marital Status Not on file 12/24/2023 PHQ-2 Answer Date Recorded PHQ-2 Score 0 12/24/2023 [facility] [place] of Occupat ional Health - Occupational Stress [...] in an abandoned building, in an overnight longterm, or couch-surfing.) Yes 12/24/2023 Are you worried [...] on file Legal Sex Female 3:19 AM SKIDDER LEVER OPERATOR Gender Identity Not on file Sexual [...] (Latest Contact Info) Description 06/24/2024 8:30 AM SKIDDER LEVER OPERATOR Office Visit [facility] [address] [place] [address] [place] [address] [place] [address] 07/29/2024 10:45 AM SKIDDER LEVER OPERATOR Ancillary Procedure [facility] [address] [place] [phone] David aLu PA-C [address] [place] [address] Visit for screening mammogram 10/31/2024 3:00 PM CDT Office Visit [facility] [address] [place] [phone] Kayce Jasso PA-C 500 [place] [address] 01/02/2025 10:00 AM CDT Office Visit [facility] [address] [place] [phone] David Lau PA-C [address] [place], [place] [phone] 05/03/2025 1:00 PM CDT Office Visit [facility] [address] [place] [phone] Kacy Reyes MD [address] [place] [address] 200 [place] [address] Medical Devices Explanted Type Area Spool Carrier Device Identifier Shelf Expiration Date Model / Serial / Lot Stent Ureteral Polaris Ultra [id number] Implanted:Qty: 1 on 12/14/2019 by Jennyfer Stanley MD at [facility] Explanted:Qty: 1 on 12/29/2019 by Jennyfer Stanley MD at [facility] Stent Right: Urethra [employer] 02/24/2022 [id number] / / [id number] Procedures Procedure Name Priority Date/Time Associated Diagnosis Comments CREATININE Routine 04/28/2024 2:47 PM CDT Type 2 diabetes mellitus with stage 1 chronic kidney disease, without long-term current use of insulin (H) HEMOGLOBIN A1C Routine 04/28/2024 2:47 PM CDT Type 2 diabetes mellitus with stage 1 chronic kidney disease, without long-term current use of insulin (H) EYE EXAM - HIM SCAN Routine 03/15/2024 COLOGUARD(EXACT SCIENCES) Routine 01/08/2024 12:00 AM CDT Screen [...] BLOOD ORDERABLES Fi nal Result [facility] [address], [address] [place] [address] * Creatinine (04/28/2024 2:47 PM CDT) Creatinine 0.61 0.51 - 0.95 mg/dL 04/29/2024 3:01 AM CDT [facility] GFR Estimate >90 >60 mL/min/1.7 3m2 04/29/2024 3:01 AM CDT [facility] Comment:eGFR calculated 2020 CKD-EPI equation. Blood BLOOD SPECIMEN / Unknown Venipuncture / Unknown 04/28/2024 2:47 PM CDT 04/28/2024 2:47 PM CDT Kacy Reyes MD LAB - BLOOD ORDERABLES Fi nal Result [facility] 500 [facility], [address] [place] [address] * Eye Exam - HIM Scan (03/15/2024) RETINOPATHY UNKNOWN Narrative Debra Navarro - 03/15/2024 Bernadette Hanson CMA Eye exam with ophthalmology on this date: 03/15/24 Exam Location: [facility] - in Care Everywhere Patient Reported OTHER Final Result * COLOGUARD(NextPrinciples) (01/08/2024 12:00 AM CDT) COLOGUARD-ABSTRACT Negative Negative 2023 9:21 PM CDT [facility] (CLIA #:[id number]) Comment: NEGATIVE TEST RESULT. A negative Cologuard [...] Pryor et al, N Engl J Med 2014;370(14):0969-5482) The normal value (reference range) for this assay is negative. COLOGUARD RE-SCREENING RECOMMENDATION: Periodic colorectal cancer screening is an important part of preventive healthcare for asymptomatic individuals at average risk for colorectal cancer. Following a negative Cologuard result, the [place] Cancer Society and U.S. Multi-Society Task Force screening guidelines recommend a Cologuard re-screening interval of 3 years. References: [place] Cancer Society Guideline for Colorectal Cancer Screening: https://www.cancer.org/cancer/husie-avwsbk-amjipi/fjtpdpfql-fftaocwog-gjjocev/ac s-rec ommendations.html.; Wander DUARTE, Adrian GONZALEZ, Nadiya PettyK, Colorectal Cancer Screening: Recommendations for Physicians and Patients from the U.S. Multi-Society Task Force on Colorectal Cancer Screening , Am J Gastroenterology 2017; 112:3701-5910. TEST DESCRIPTION: Composite algorithmic analysis of stool [...] screened with both Cologuard and colonoscopy. (Tio Billings. et al, N Engl J Med 2014;370(14):8909-9857.) Cologuard may produce a false negative or false positive result (no colorectal cancer or precancerous polyp present at colonoscopy follow up). A negative Cologuard test result does not guarantee the absence of CRC or advanced adenoma (pre-cancer). The current Cologuard screening interval is every 3 years. ([place] Cancer Society and U.S. Multi-Society Task Force). Cologuard performance data in a 10,000 patient pivotal study using colonoscopy as the reference method can be accessed at the following location: www.Lookwider/results. Additional description of the Cologuard test process, warnings and precautions can be found at www.Josuda CorporationogSproutlingrd.com. Stool specimen (specimen) 01/08/2024 01/09/2024 10:43 AM CDT Tru Dasilva MD LABORATORY Final Result [facility] [address] [place] [address], [facility] [phone] [facility] (CLIA #:[id number]) [address] [place] [address] * (ABNORMAL) Lipid panel reflex to direct [...] LAB - BLOOD ORDERABLES Final Res ult [facility] [address] [facility], [address] [place] [address], [facility] * Pap Screen with HPV - Recommended [...] for high risk HPV DNA. METHODOLOGY: The Nativis system uses automated extraction, simultaneous amplification of [...] Res ult SPECIALTY LAB[facility] Specialty Lab 500 [facility], [address] [address], [facility] MOLECULAR DIAGNOSTICS Molecular Diagnostics 500 [facility], [address] [address], [facility] * Albumin Random Urine Quantitative with Creat [...] control, and institution of therapy with an qjmgpysqynx-ocytlqvmhk-haikqc (RENETTA) inhibitor (if the patient can tolerate it). Urine URINE SPECIMEN / Unknown Non-blood Collection / Unknown 11/18/2023 10:26 AM CDT 11/18/2023 10:26 AM CDT Kacy Reyes MD LAB - URINE ORDERABLES Critical access hospital Result [facility] Core Lab [address] [facility], [address] [place] [phone] * (ABNORMAL) Basic metabolic panel (Ca, Cl, CO2, Creat, Gluc, K, Na, BUN) (11/18/2023 10:07 AM CDT) [facility] Sodium 142 135 - 145 mmol/L [...] 11/18/2023 10:07 AM CDT Sanjay Mchugh APRN ELECTRICIAN LAB - BLOOD ORDERABLES Ena l Result [facility] 500 [facility], [address] [address] * MA SCREENING DIGITAL BILAT - Future [...] FIT Negative Negative 01/08/2022 10:11 PM CDT U [facility] Stool RECTAL CONTENTS / Unknown Non-blood Collection / Unknown 01/08/2022 9:06 AM CDT 01/08/2022 9:06 AM CDT Kali Ventura PA-C LAB - STOOLS ORDERABLE S Final Result [facility] Core Lab 500 [facility], [address] [address], [facility] [phone] * Hepatitis C Screen Reflex to HCV RNA Quant and Genotype (05/14/2018 9:50 AM CDT) Hepatitis C Antibody Nonreactive NR^Nonre active 05/15/2018 12:15 PM CDT [facility] Comment: Assay performance characteristics have not been established for newborns, infants, and children Blood specimen (specimen) 05/14/2018 9:50 AM CDT 05/14/2018 9:51 AM CDT Morris Monreal MD LAB - BLOOD ORDERABLES Final Result Performing Organization Address City/[facility]/ZIP Co de Phone Number [facility] [address] [place] [address] * HIV Antigen Antibody Combo (12/29/2017 11:16 AM CDT) HIV Antigen Antibody Combo Nonreactive NR^Nonrea ctive 12/30/2017 10:10 AM CDT [facility] Comment:HIV-1 p24 Ag & HIV-1 /HIV-2 Ab Not Detected Blood specimen (specimen) 12/29/2017 11:16 AM CDT 12/29/2017 11:17 AM CDT Morris Monreal MD LAB - BLOOD ORDERABLES Final Result [address] [address], [facility] from Last 3 Months or Most Recently Relevant to Health Maintenance Insurance BCBS OUT OF STATE BCBS OUT OF STATE Advance Directives For more information, please contact: [phone] * Full Code (Latest Code Status on File) Date Activated Date Inactivated Comments 12/14/2019 12:33 PM 12/29/2019 12:59 PM Question Answer Comments Code status determined by: Discussion with patie nt/legal decision maker * Full Code Date Activated Date Inactivated Comments 12/13/2019 2:40 PM 12/14/2019 12:33 PM Question Answer Comments Code status determined by: Discussion with patie nt/legal decision maker Care Teams Director Of Integrated Marketing Relationship Specialty Start Date End Date David Lau PA-C [address] [place] [address] PCP - General Family Medicine 06/03/24 Kacy Reyes MD [address] [facility] [address] [place] [address] Assigned Endocrinology Provider 12/10/23 [place] [address] [place] [address] Assigned PCP 01/10/24
--- OUTSIDE RECORDS SUMMARY | 2024-06-20 19:33 | XMS_ITS | Encounter Summary ---
Author Organization [place] Address [facility] [place] [address] Care Team Providers Care Hogshead Opener Name Role Phone Kacy Reyes MD Unavailable [phone] Tru Dasilva MD Primary Care Provider Tru Dasilva MD Unavailable Reason for Visit * Reason Onset Date Comments Call Back 04/26/2024 Encounter Details Date Type Department Care Team (Late st Contact Info) Description 04/26/2024 Telephone [facility] [address] [place] [address] Kacy Reyes MD [address] [place] [address] Call Back Social History Tobacco Use Types Packs/Day Years [...] re latives? Once a week 12/24/2023 Attends Spiritism Services Not on file 12/23 Active Member of Clubs or Organizations Not on f ile 12/24/2023 Attends Club or Organization Meetings Not on rachele e 12/24/2023 Marital Status Not on file 12/24/2023 PHQ-2 Answer Date Recorded PHQ-2 Score 0 12/24/2023 [facility] [place] of Occupat ional Health - Occupational Stress [...] in an abandoned building, in an overnight long term, or couch-surfing.) Yes 12/24/2023 Are you worried [...] on file Legal Sex Female 3:19 AM ELECTRICIAN RESEARCH Gender Identity Not on file Sexual Orientation Not on file Occupation Industry Job Start Date Job End Date Not on file Not on file Not on file Not on file documented as of this encounter Miscellaneous Notes * Telephone Encounter - Bernadette Hanson CMA - 04/26/2024 12:57 PM CDT I will set it up at her appointment in 2 days. Lidia Hanson CMA -[facility] Endocrinology [place] [phone] * Telephone Encounter - Adrienne Felder - 04/26/2024 12:15 PM CDT [facility] Call Center Phone Message May a detailed message be left on voicemail: yes Reason for Call: Other: patient wondering if you can read her blood sugars from her Freestyle that's on her arm. Please call to discuss. documented in this encounter Plan of Treatment Upcoming Encounters Date Type Department Care Team (Latest Contact Info) Description 06/24/2024 8:30 AM ELECTRICIAN RESEARCH Office Visit [facility] [address] [place] [address] [place] [address] [place] [address] 07/29/2024 10:45 AM ELECTRICIAN RESEARCH Ancillary Procedure [facility] [address] [place] [address] David Lau PA-C [address] [place], [place] [phone] Visit for screening mammogram 10/31/2024 3:00 PM CDT Office Visit [facility] [address] [place] [phone] Kayce Jasso PA-C 500 [place] [address] 01/02/2025 10:00 AM CDT Office Visit [facility] [address] [place] [phone] David Lau PA-C [address] [place] [address] 05/03/2025 1:00 PM CDT Office Visit [facility] [address] [place] [address] Kacy Reyes MD [address] [place] [address] 200 [place] [address] documented as of this encounter Visit Diagnoses Not on filedocumented in this encounter Care Teams Hogshead Opener Relationship Specialty [place] [address] [place] [address] PCP - General Family Medicine 12/18/23 06/02/24 Kacy Reyes MD [address] [place] [address] 200 [place] [address] Assigned Endocrinology Provider 12/10/23 [place] [address] [place] [address] Assigned PCP 01/10/24 documented as of this encounter
--- OUTSIDE RECORDS SUMMARY | 2024-06-20 19:33 | XMS_ITS | Encounter Summary ---
Author Organization [place] Address [facility] [place] [address] Care Team Providers Care Cutter Hand Name Role Phone Kacy Reyes MD Unavailable [phone] Tru Dasilva MD Unavailable David Lau PA-C Primary Care Provider Reason for Visit * Reason Onset Date Comments Refill Request 06/07/2024 Softclix lancets Encounter Details Date Type Department Care Team (Late st Contact Info) Description 06/07/2024 Telephone [facility] [address] [facility] [address] [place] [address] Kacy Reyes MD [address] [place] [address] Refill Request (Softclix lancets) Social History Tobacco Use Types Packs/Day Years [...] re latives? Once a week 12/24/2023 Attends Buddhism Services Not on file 12/23 Active Member of Clubs or Organizations Not on f ile 12/24/2023 Attends Club or Organization Meetings Not on rachele e 12/24/2023 Marital Status Not on file 12/24/2023 PHQ-2 Answer Date Recorded PHQ-2 Score 0 12/24/2023 [facility] - Occupational Stress Questionnaire Answer Date [...] in an abandoned building, in an overnight skilled nursing, or couch-surfing.) Yes 12/24/2023 Are you worried [...] on file Legal Sex Female 3:19 AM MANAGER COMMISSION Gender Identity Not on file Sexual Orientation Not on file Occupation Industry Job Start Date Job End Date Not on file Not on file Not on file Not on file documented as of this encounter Miscellaneous Notes * Telephone Encounter - Elizabeth Alexandre RN - 06/07/2024 11:31 AM MANAGER COMMISSION Requested Prescriptions Signed Prescriptions Disp Refills blood glucose (NO BRAND SPECIFIED) lancets standard 300 each 1 Sig: Use to test blood sugar 3 times daily. There is no refill protocol information for this order [employer] * Telephone Encounter - Kacy Reyes MD - 06/07/2024 11:28 AM MANAGER COMMISSION Endo staff- can you please take a look into this? Thank you. [employer] * Telephone Encounter - Matheus Arambula - 06/07/2024 9:47 AM CST Patient has requested a refill for Lancets, but no prescription is in [place] or [place]. If a new Rx could be written we would appreciate it. Thank you, Matheus Arambula [facility] Internal Medicine Physician [employer] documented in this encounter Plan of Treatment Upcoming Encounters Date Type Department Care Team (Latest Contact Info) Description 06/24/2024 8:30 AM MANAGER COMMISSION Office Visit [facility] [address] [place] [phone] [place] [address] [place] [address] 07/29/2024 10:45 AM MANAGER COMMISSION Ancillary Procedure [facility] [address] [place] [phone] David Lau PA-C [address] [place] [address] Visit for screening mammogram 10/31/2024 3:00 PM CDT Office Visit [facility] [address] [place] [phone] Kayce Jasso PA-C [address] [place] [address] 01/02/2025 10:00 AM CDT Office Visit [facility] [address] [place] [phone] David Lau PA-C [address] [facility] [place] [address] 05/03/2025 1:00 PM CDT Office Visit [facility] [address] [facility] [address] [place] [phone] Kacy Reyes MD [address] [place] [phone] documented as of this encounter Visit Diagnoses Diagnosis Type 2 diabetes mellitus with stage 1 chronic kidney disease, without long-term current use of insulin (H)- Primary Visit for screening mammogram Other screening mammogram documented in this encounter Care Teams Cutter Hand Relationship Specialty Start Date End Date David Lau PA-C [address] [facility] [place] [address] PCP - General Family Medicine 06/03/24 Kacy Reyes MD [address] [place] [address] 200 [place], [place] [address] Assigned Endocrinology Provider 12/10/23 [place] [address] [place] [address] Assigned PCP 01/10/24 documented as of this encounter
--- OUTSIDE RECORDS SUMMARY | 2024-06-20 19:34 | XMS_ITS | Encounter Summary ---
Author Organization [place] Address [address] [place] [address]. [place] [address] Care Team Providers Care Transcription Coordinator Name Role Phone Kacy Reyes MD Unavailable [phone] Kali Ventura PA-C Primary Care Provider Kali Ventura PA-C Unavailable Kizzy Davenport OD Unavailable Ricky Ramirez MD Unavailable [phone] Kayce Jasso PA-C Unavailable Kali Ventura PA-C Unavailable Kacy Reyes MD Unavailable [phone] Tru Dasilva MD Primary Care Provider [phone] Tru Dasilva MD Unavailable David Lau PA-C Primary Care Provider Reason for Visit * Reason Comments Medication Refill Encounter Details Date Type Department Care Team (Late st Contact Info) Description 12/30/2022 [facility] [address] [place] [phone] Emily Serrato PA-C [address] [place] [address] Medication Refill Social History Tobacco Use Types Packs/Day Years Used Date Smoking Tobacco: Never Smokeless Tobacco: Never Alcohol Use Standard Drinks/Week Comments Yes 0 (1 standard drink = 0.6 oz pur e alcohol) wine PHQ-2 Answer Date Recorded PHQ-2 Score 0 10/31/2022 Comments No Sex and Gender Information Value Date Recorded Sex Assigned at Not on file Legal Sex Female 3:19 AM HEAD CUSTODIAN Gender Identity Not on file Sexual Orientation Not on file Occupation Industry Job Start Date Job End Date Not on file Not on file Not on file Not on file COVID-19 Exposure Response Date Recorded In the last 10 days, have yo u been in contact with someone who was confirmed or suspected to have Coronavirus/COVID-19? No / Unsure 12/10/2022 2:08 PM CDT documented as of this encounter Plan of Treatment Upcoming Encounters Date Type Department Care Team (Latest Contact Info) Description 06/24/2024 8:30 AM HEAD CUSTODIAN Office Visit [facility] [address] [place] [address] [place] [address] [place] [address] 07/29/2024 10:45 AM HEAD CUSTODIAN Ancillary Procedure [facility] [address] [place] [phone] David Lau PA-C [address] [place], [place] [phone] Visit for screening mammogram 10/31/2024 3:00 PM CDT Office Visit [facility] [address] [place] [phone] Kayce Jasso PA-C 500 [place] [address] 01/02/2025 10:00 AM CDT Office Visit [facility] [address] [place] [address] David Lau PA-C [address] [facility] [place] [address] 05/03/2025 1:00 PM CDT Office Visit [facility] [address] [place] [phone] Kacy Reyes MD [address] [place], [place] [phone] documented as of this encounter Visit Diagnoses Diagnosis Nasal congestion Other diseases of nasal cavity and sinuses Seasonal allergic rhinitis due to other allergic trigger Visit for screening mammogram Other screening mammogram documented in this encounter Additional Health Concerns Infection Onset Date Last Indicated Resolved Time Rule Out C-difficile 01/21/2023 01/22/2023 023 2:33 PM CDT documented as of this encounter Care Teams Transcription Coordinator Relationship Specialty Start Date End Date Kali Ventura PA-C [address] [place] [address] PCP - General Family Medicine 11/18/21 12/17/23 [place] [address] [place] [address] PCP - General Family Medicine 12/18/23 06/02/24 David Lau PA-C [address] [place] [address] PCP - General Family Medicine 06/03/24 Kacy Reyes MD [address] [place], [place] [address] Assigned Endocrinology Provider 08/12/20 07/31/23 Kali Ventura PA-C [address] [place] [address] Assigned PCP 01/18/22 07/10/23 Kizzy Davenport OD [address] [facility] [place] [address] Assigned Surgical Provider 09/20/22 Ricky Ramirez MD [address] [place] [address] Assigned PCP 07/11/23 12/09/23 Kayce Jasso PA-C 500 [place] [address] Assigned Endocrinology Provider 08/21/23 12/09/23 Kali Ventura PA-C [address] [place] [address] Assigned PCP 12/10/23 01/09/24 Kacy Reyes MD [address] 200 [place] [address] Assigned Endocrinology Provider 12/10/23 [place] [address] [place] [address] Assigned PCP 01/10/24 documented as of this encounter
--- OUTSIDE RECORDS SUMMARY | 2024-06-20 19:34 | XMS_ITS | Encounter Summary ---
Author Organization [place] Address [facility] [place] [address] Care Team Providers Care Social Problems Specialist Name Role Phone Kacy Reyes MD Unavailable [phone] Kali Ventura PA-C Primary Care Provider Kali Ventura PA-C Unavailable Kizzy Davenport OD Unavailable Ricky Ramirez MD Unavailable [phone] Kayce Jasso PA-C Unavailable Kali Ventura PA-C Unavailable [phone] Kacy Reyes MD Unavailable [phone] Tru Dasilva MD Primary Care Provider [phone] Tru Dasilva MD Unavailable David Lau PA-C Primary Care Provider Reason for Visit * Reason Onset Date Comments Refill Request 01/02/2023 Encounter Details Date Type Department Care Team (Late st Contact Info) Description 01/02/2023 Refill [facility] [address] [place] [address] Kacy Reyes MD [address] 200 [place] [address] Refill Request Social History Tobacco Use Types Packs/Day Years Used Date Smoking Tobacco: Never Smokeless Tobacco: Never Alcohol Use Standard Drinks/Week Comments Yes 0 (1 standard drink = 0.6 oz pur e alcohol) wine PHQ-2 Answer Date Recorded PHQ-2 Score 0 10/31/2022 Comments No Sex and Gender Information Value Date Recorded Sex Assigned at Not on file Legal Sex Female 3:19 AM AIRPORT MANAGER Gender Identity Not on file Sexual Orientation Not on file Occupation Industry Job Start Date Job End Date Not on file Not on file Not on file Not on file COVID-19 Exposure Response Date Recorded In the last 10 days, have yo u been in contact with someone who was confirmed or suspected to have Coronavirus/COVID-19? No / Unsure 01/05/2023 10:25 AM CDT documented as of this encounter Plan of Treatment Upcoming Encounters Date Type Department Care Team (Latest Contact Info) Description 06/24/2024 8:30 AM AIRPORT MANAGER Office Visit [facility] [address] [place] [phone] [place] [address] [place] [address] 07/29/2024 10:45 AM AIRPORT MANAGER Ancillary Procedure [facility] [address] [place] [address] David Lau PA-C [address] [place], [place] [address] Visit for screening mammogram 10/31/2024 3:00 PM CDT Office Visit [facility] [address] [place] [phone] Kayce Jasso PA-C 500 [place], [place] [address] 01/02/2025 10:00 AM CDT Office Visit [facility] [address] [place] [address] David Lau PA-C [address] [place] [address] 05/03/2025 1:00 PM CDT Office Visit [facility] [address] [place] [phone] Kacy Reyes MD [address] [facility] 200 [place], [place] [phone] documented as of this encounter Visit Diagnoses Not on filedocumented in this encounter Additional Health Concerns Infection Onset Date Last Indicated Resolved Time Rule Out C-difficile 01/21/2023 01/22/2023 023 2:33 PM CDT documented as of this encounter Care Teams Social Problems Specialist Relationship Specialty Start Date End Date Kali Ventura PA-C [address] [place] [address] PCP - General Family Medicine 11/18/21 12/17/23 [place] [address] [place] [address] PCP - General Family Medicine 12/18/23 06/02/24 David Lau PA-C [address] [place] [address] PCP - General Family Medicine 06/03/24 Kacy Reyes MD [address] [place], [place] [address] Assigned Endocrinology Provider 08/12/20 07/31/23 Kali Ventura PA-C [address] [place] [address] Assigned PCP 01/18/22 07/10/23 Kizzy Davenport OD [address] [facility] [id number] Assigned Surgical Provider 09/20/22 Ricky Ramirez MD 1390 [place] [address] Assigned PCP 07/11/23 12/09/23 Kayce Jasso PA-C 500 [place] [address] Assigned Endocrinology Provider 08/21/23 12/09/23 Kali Ventura PA-C [address] [place] [address] Assigned PCP 12/10/23 01/09/24 Kacy Reyes MD [address] 200 [place] [address] Assigned Endocrinology Provider 12/10/23 [place] [address] [place] [address] Assigned PCP 01/10/24 documented as of this encounter
--- OUTSIDE RECORDS SUMMARY | 2024-06-20 19:34 | XMS_ITS | Encounter Summary ---
Author Organization [place] Address [facility] [place] [address] Care Team Providers Care Mulcher Operator Name Role Phone Morris Monreal MD Primary Care Provider Unavailable Morris Monreal MD Unavailable UnaMorris Lugo MD Unavailable Unavai Ricky Antony MD Unavailable Kacy Reyes MD Unavailable [phone] Yohana Briggs APRN TRIMMING OPERATOR Unavailable Chris Lemon MD Unavailable Morris Monreal MD Unavailable UnaValentino Vásquez-C Unavailable Kizzy Davenport OD Unavailable Carlo Bonilla MD Unavailable [phone] Kali Ventura PA-C Primary Care Provider Kali Ventura PA-C Unavailable Kizzy Davenport OD Unavailable Ricky Ramirez MD Unavailable Kayce Jasso-C Unavailable Kali Ventura PA-C Unavailable Kacy Reyes MD Unavailable [phone] Tru Dasilva MD Primary Care Provider [phone] Tur Dasilva MD Unavailable David Lau PA-C Primary Care Provider Reason for Visit * Reason Onset Date Comments Refill Request 08/21/2016 Vitamin D 50,000 unit Encounter Details Date Type Department Care Team (Late st Contact Info) Description 08/21/[address] [phone] Morris Monreal MD Refill Request (Vitamin D 50,000 unit) Social History Tobacco Use Types Packs/Day Years Used Date Smoking Tobacco: Never Smokeless Tobacco: Never Alcohol Use Standard Drinks/Week Comments Yes 0 (1 standard drink = 0.6 oz pur e alcohol) wine Comments No Sex and Gender Information Value Date Recorded Sex Assigned at Not on file Legal Sex Female 3:19 AM SUPERVISOR NUCLEAR MEDICINE Gender Identity Not on file Sexual Orientation Not on file Occupation Industry Job Start Date Job End Date Not on file Not on file Not on file Not on file documented as of this encounter Miscellaneous Notes * Telephone Encounter - Joy Montoya - 08/21/2016 3:24 PM CST Vitamin D 50,000 unit Last Written Prescription Date: 03/11/16 Last Fill Quantity: 12, # refills: 1 Last Office Visit with [facility], [facility] or [facility] prescribing provider: 01/25/16 Future Office visit: Routing refill request to provider for review/approval because: Drug not on the [facility], [facility] or [facility] refill protocol or controlled substance Joy Montoya CPhT [facility] On behalf of [facility] NUCLEAR MEDICINE documented in this encounter Plan of Treatment Upcoming Encounters Date Type Department Care Team (Latest Contact Info) Description 06/24/2024 8:30 AM SUPERVISOR NUCLEAR MEDICINE Office Visit [address] [place] [address] [place] [address] [place] [address] 07/29/2024 10:45 AM SUPERVISOR NUCLEAR MEDICINE Ancillary Procedure [facility] [address] [place] [phone] David aLu PA-C [address] [place] [address] Visit for screening mammogram 10/31/2024 3:00 PM CDT Office Visit [place] [address] [address] [facility] 200 [place] [phone] Kayce Jasso PA-C 500 [place], [place] [address] 01/02/2025 10:00 AM CDT Office Visit [facility] [address] [place] [phone] David Lau PA-C [address] [place] [address] 05/03/2025 1:00 PM CDT Office Visit [place] [address] [facility] [address] [place] [phone] Kacy Reyes MD [address] [place] [address] 200 [place], [place] [phone] documented as of this encounter Visit Diagnoses Diagnosis Vitamin D deficiency- Primary Unspecified vitamin D deficiency Visit for screening mammogram Other screening mammogram documented in this encounter Additional Health Concerns Infection Onset Date Last Indicated Resolved Time Rule Out COVID-19 06/19/2020 06/19/2020 06/20/2020 4:31 PM SUPERVISOR NUCLEAR MEDICINE Rule Out COVID-19 08/08/2021 08/08/2021 08/09/2021 1:52 PM SUPERVISOR NUCLEAR MEDICINE COVID-19 08/08/2021 08/08/2021 08/29/2021 11:3 9 PM SUPERVISOR NUCLEAR MEDICINE Rule Out C-difficile 01/21/2023 01/22/2023 023 2:33 PM CDT documented as of this encounter Care Teams Mulcher Operator Relationship Specialty Start Date End Date Morris Monreal MD PCP - General 04/21/02 11/17/21 Morris Monreal MD PCP - Assigned PCP 05/17/08 09/21/18 Kali Ventura PA-C [address] [place] [address] PCP - General Family Medicine 11/18/21 12/17/23 [place] [address] [place] [address] PCP - General Family Medicine 12/18/23 06/02/24 David Lau PA-C [address] [place] [address] PCP - General Family Medicine 06/03/24 Morris Monreal MD Assigned PCP 04/22/12 09/22/20 Ricky Stanley MD [address] [facility] 500 [place] [phone] Assigned Surgical Provider 05/11/20 Kacy Reyes MD [address] [facility] 200 [place], [place] [address] Assigned Endocrinology Provider 08/12/20 07/31/23 Yohana Briggs APRN CNP [address] [place] [address] Assigned PCP 09/23/20 10/20/20 [place] [address] [facility] 300 [place] [address] Assigned Musculoskeletal Provider 10/28/20 11/24/20 Morris Monreal MD Assigned PCP 10/21/20 10/05/21 Valentino William PA-C [address] [facility] 300 [place] [address] Assigned Musculoskeletal Provider 11/25/20 06/20/22 Kizzy Davenport OD [address] [facility] [place] [address] Assigned Surgical Provider 06/09/2108/22/22 Carlo Bonilla MD [address] [place] [address] Assigned PCP 10/06/21 01/17/22 Kali Ventura PA-C [address] [place] [address] Assigned PCP 01/18/22 07/10/23 Kizzy Davenport OD [address] [facility] [place] [address] Assigned Surgical Provider 09/20/22 Ricky Ramirez MD 1390 [place] [address] Assigned PCP 07/11/23 12/09/23 Kayce Jasso PA-C 500 [place] [address] Assigned Endocrinology Provider 08/21/23 12/09/23 Kali Ventura PA-C [address] [place] [address] Assigned PCP 12/10/23 01/09/24 Kacy Reyes MD [address] 200 [place] [address] Assigned Endocrinology Provider 12/10/23 [place] [address] [place] [address] Assigned PCP 01/10/24 documented as of this encounter
--- OUTSIDE RECORDS SUMMARY | 2024-06-20 19:34 | XMS_ITS | Encounter Summary ---
Author Organization [place] Address [facility] [place] [address] Care Team Providers Care Bottom Steep Tender Name Role Phone Morris Monreal MD Primary Care Provider Unavailable Ricky Stanley MD Unavailable [phone] Kacy Reyse MD Unavailable [phone] Morris Monreal MD Unavailable Valentino Costa-C Unavailable Kizzy Davenport OD Unavailable Carlo Bonilla MD Unavailable [phone] Kali Ventura PA-C Primary Care Provider Kali Ventura PA-C Unavailable Kizzy Davenport OD Unavailable [phone] Ricky Ramirez MD Unavailable [phone] Kayce Jasso-Bruno Unavailable Kali Ventura PA-C Unavailable [phone] Kacy Reyes MD Unavailable [phone] Tru Dasilva MD Primary Care Provider [phone] Tru Dasilva MD Unavailable Reason for Visit * Reason Onset Date Comments Prior Auth - Medication 04/30/2021 (RENEWAL ) - TRULICITY 1.5 MG/0.5ML pen- APPROVED Encounter Details Date Type Department Care Team (Late st Contact Info) Description 04/30/2021 Telephone [facility] Endocrinology [address] [place] [address] Frederick Abarca MD NO INFO AVAILABLE Prior Auth - Medication ((RENEWAL) - TRULICITY 1.5 MG/0.5ML pen- APPROVED) Social History Tobacco Use Types Packs/Day Years [...] re latives? Once a week 12/24/2023 Attends [employer] Not on file 12/23 Active Member [...] on file Legal Sex Female 3:19 AM CYBER INCIDENT RESPONDER Gender Identity Not on file Sexual Orientation Not on file Occupation Industry Job Start Date Job End Date Not on file Not on file Not on file Not on file COVID-19 Exposure Response Date Recorded In the last 10 days, have yo u been in contact with someone who was confirmed or suspected to have Coronavirus/COVID-19? No / Unsure 01/21/2023 2:26 PM CDT documented as of this encounter Miscellaneous Notes * Telephone Encounter - Rosanna Hogan - 05/03/2021 8:02 AM CDT Images from the original note were not included. Prior Authorization Approval Authorization Effective Date: 04/02/2022 Authorization Expiration Date: 07/31/2021 Medication: (RENEWAL) - TRULICITY 1.5 MG/0.5ML pen- APPROVED Approved Dose/Quantity: 2 ML Reference #: [id number] Insurance Company: [employer] - Expected CoPay: CoPay Card Available: Foundation Assistance Needed: Which Pharmacy is filling the prescription (Not needed for infusion/clinic administered): [facility] [place], [place] - [address] [facility] Pharmacy Notified: Yes but refill too soon Patient Notified: No Central Prior Authorization Team * Telephone Encounter - Rosanna Hogan - 05/02/2021 10:47 AM CDT Images from the original note were not included. PA Initiation Medication: (RENEWAL) - TRULICITY 1.5 MG/0.5ML pen- INITIATED Insurance Company: [employer] - Pharmacy Filling the Rx: [facility] [place], [place] - [address] [facility] Filling Pharmacy Filling Pharmacy Start Date: 05/02/2021 * Telephone Encounter - Sarah Salvador - 04/30/2021 10:19 AM CDT Images from the original note were not included. Prior Authorization Retail Medication Request Medication/Dose: (RENEWAL) - TRULICITY 1.5 MG/0.5ML pen ICD code (if different than what is on RX): Type 2 diabetes mellitus without retinopathy (H) [E11.9] Previously Tried and Failed: Rationale: Insurance Name: [id number] Pharmacy Information (if different than what is on RX) Name: [place], [place] - [address] [facility] documented in this encounter Plan of Treatment Upcoming Encounters Date Type Department Care Team (Latest Contact Info) Description 06/24/2024 8:30 AM CYBER INCIDENT RESPONDER Office Visit [address] [address] [place] [address] [place] [address] 07/29/2024 10:45 AM CYBER INCIDENT RESPONDER Ancillary Procedure [facility] [address] [place] [phone] David Lau PA-C [address] [place], [place] [address] Visit for screening mammogram 10/31/2024 3:00 PM CDT Office Visit [place] [address] [address] [facility] 200 [place] [phone] Kayce Jasso PA-C 500 [place], [place] [address] 01/02/2025 10:00 AM CDT Office Visit [facility] [address] [place] [phone] David Lau PA-C [address] [place] [address] 05/03/2025 1:00 PM CDT Office Visit [place] [address] [address] [facility] 200 [place] [address] Kacy Reyes MD [address] [place] [address] 200 [place] [address] documented as of this encounter Visit Diagnoses Not on filedocumented in this encounter Additional Health Concerns Infection Onset Date Last Indicated Resolved Time Rule Out COVID-19 08/08/2021 08/08/2021 08/09/2021 1:52 PM CYBER INCIDENT RESPONDER COVID-19 08/08/2021 08/08/2021 08/29/2021 11:3 9 PM CYBER INCIDENT RESPONDER Rule Out C-difficile 01/21/2023 01/22/2023 023 2:33 PM CDT documented as of this encounter Care Teams Bottom Steep Tender Relationship Specialty Start Date End Date Morris Monreal MD PCP - General 04/21/02 11/17/21 Kali Ventura PA-C [address] [place] [address] PCP - General Family Medicine 11/18/21 12/17/23 [place] [address] [place] [address] PCP - General Family Medicine 12/18/23 06/02/24 Ricky Stanley MD [address]363 [facility] 500 [place] [phone] Assigned Surgical Provider 05/11/20 Kacy Reyes MD [address] [facility] [address] [place], [place] [address] Assigned Endocrinology Provider 08/12/20 07/31/23 Morris Monreal MD Assigned PCP 10/21/20 10/05/21 Valentino William PA-C [address] [facility] 300 [place] [address] Assigned Musculoskeletal Provider 11/25/20 06/20/22 Kizzy Davenport OD [address] [facility] [place] [address] Assigned Surgical Provider 06/09/2108/22/22 Carlo Bonilla MD [address] [place] [address] Assigned PCP 10/06/21 01/17/22 Kali Ventura PA-C [address] [place] [address] Assigned PCP 01/18/22 07/10/23 Kizzy Davenport OD [address] [facility] [place] [address] Assigned Surgical Provider 09/20/22 Ricky Ramirez MD 1390 [place] [address] Assigned PCP 07/11/23 12/09/23 Kayce Jasso PA-C 500 [place] [address] Assigned Endocrinology Provider 08/21/23 12/09/23 Kali Ventura PA-C [address] [place] [address] Assigned PCP 12/10/23 01/09/24 Kacy Reyes MD [address] [place] [address] 200 [place] [address] Assigned Endocrinology Provider 12/10/23 [place] [address] [place] [address] Assigned PCP 01/10/24 documented as of this encounter
--- OUTSIDE RECORDS SUMMARY | 2024-06-20 19:34 | XMS_ITS | Encounter Summary ---
Author Organization [place] Address [facility] [place] [address] Care Team Providers Care Legal Biller Name Role Phone Morris Monreal MD Primary Care Provider Unavailable Morris Monreal MD Unavailable UnaMorris Lugo MD Unavailable Unavai Ricky Antony MD Unavailable Kacy Reyes MD Unavailable [phone] Yohana Briggs APRN FOREIGN BROADCAST SPECIALIST Unavailable Chris Lemon MD Unavailable Morris Monreal MD Unavailable UnaValentino Vásquez-C Unavailable [phone] Kizzy Davenport OD Unavailable Carlo Bonilla MD Unavailable [phone] Kali Ventura PA-C Primary Care Provider Kali Ventura PA-C Unavailable Kizzy Davenport OD Unavailable Ricky Ramirez MD Unavailable [phone] Kayce Jasso-C Unavailable Kali Ventura PA-C Unavailable Kacy Reyes MD Unavailable [phone] Tru Dasilva MD Primary Care Provider [phone] Tru Dasilva MD Unavailable David Lau PA-C Primary Care Provider Reason for Visit * Reason Onset Date Comments Refill Request 09/14/2017 lisinopril (PRIN IVIL/ZESTRIL) 40 MG tablet Encounter Details Date Type Department Care Team (Late st Contact Info) Description 09/14/[address] [address] Morris Monreal MD Refill Request (lisinopril (PRINIVIL/ZESTRIL) 40 MG tablet) Social History Tobacco Use Types Packs/Day Years Used Date Smoking Tobacco: Never Smokeless Tobacco: Never Alcohol Use Standard Drinks/Week Comments Yes 0 (1 standard drink = 0.6 oz pur e alcohol) wine Comments No Sex and Gender Information Value Date Recorded Sex Assigned at Not on file Legal Sex Female 3:19 AM SAP PORTAL DEVELOPER Gender Identity Not on file Sexual Orientation Not on file Occupation Industry Job Start Date Job End Date Not on file Not on file Not on file Not on file documented as of this encounter Miscellaneous Notes * Telephone Encounter - Bernadette Cedeno RN - 09/17/2017 10:22 AM CST Images from the original note were not included. Prescription approved [place] [facility] [place] Protocol. Lidia Cedeno, DAVE Patient Care Dough Mixer [facility] [phone] PORTAL DEVELOPER * Telephone Encounter - Patricia Segovia - 09/14/2017 8:39 AM CST Requested Prescriptions Pending Prescriptions Disp Refills ??? lisinopril (PRINIVIL/ZESTRIL) 40 MG tablet [Pharmacy Med Name: LISINOPRIL 40MG TABS] Last Written Prescription Date: 03/25/2017 Last Fill Quantity: 90 tablet, # refills: 1 Last office visit: 08/17/2017 with prescribing provider: Jocelin Future Office Visit: Next 5 appointments (look out 90 days) Nov 12, 2017 2:00 PM CDT Return Visit with Sarah Montoya APRN CNP [facility] [address] [facility] [phone] 90 tablet 1 Sig: TAKE ONE TABLET BY MOUTH EVERY DAY RENETTA Inhibitors (Including Combos) Protocol Failed 09/14/2017 8:37 AM Failed - No positive test in past 12 months Passed - Blood pressure under 140/90 in past 12 months BP Readings from Last 3 Encounters: 08/17/17 122/85 08/04/17 119/81 04/21/17 115/88 Passed - Recent or future visit with authorizing provider's specialty Patient had office visit in the last year or has a visit in the next 30 days with authorizing provider. See Patient Info tab in inbasket, or Choose Columns in Meds & Orders section of the refill encounter. Passed - Patient is age 18 or older Passed - No active on record Passed - Normal serum creatinine on file in past 12 months Recent Labs Lab Test 04/18/17 1500 CR 0.58 Passed - Normal serum potassium on file in past 12 months Recent Labs Lab Test 04/18/17 1500 POTASSIUM 3.6 PORTAL DEVELOPER documented in this encounter Plan of Treatment Upcoming Encounters Date Type Department Care Team (Latest Contact Info) Description 06/24/2024 8:30 AM SAP PORTAL DEVELOPER Office Visit [facility] [address] [place] [phone] [place] [address] [place], [place] [phone] 07/29/2024 10:45 AM SAP PORTAL DEVELOPER Ancillary Procedure [facility] [address] [place] [address] David Lau PA-C [address] [place], [place] [phone] Visit for screening mammogram 10/31/2024 3:00 PM CDT Office Visit [facility] [address] [place] [phone] Kayce Jasso PA-C [address] [place], [place] [address] 01/02/2025 10:00 AM CDT Office Visit [facility] [address] [place] [address] David Lau PA-C [address] [place], [place] [phone] 05/03/2025 1:00 PM CDT Office Visit [facility] [address] [facility] [address] [place] [phone] Kacy Reyes MD [address] [place] [address] [address] [place], [place] [address] documented as of this encounter Visit Diagnoses Diagnosis Essential hypertension, benign Visit for screening mammogram Other screening mammogram documented in this encounter Additional Health Concerns Infection Onset Date Last Indicated Resolved Time Rule Out COVID-19 06/19/2020 06/19/2020 06/20/2020 4:31 PM SAP PORTAL DEVELOPER Rule Out COVID-19 08/08/2021 08/08/2021 08/09/2021 1:52 PM SAP PORTAL DEVELOPER COVID-19 08/08/2021 08/08/2021 08/29/2021 11:3 9 PM SAP PORTAL DEVELOPER Rule Out C-difficile 01/21/2023 01/22/2023 023 2:33 PM CDT documented as of this encounter Care Teams Legal Biller Relationship Specialty Start Date End Date Morris Monreal MD PCP - General 04/21/02 11/17/21 Morris Monreal MD PCP - Assigned PCP 05/17/08 09/21/18 Kali Ventura PA-C [address] [place] [address] PCP - General Family Medicine 11/18/21 12/17/23 [place] [address] [place] [address] PCP - General Family Medicine 12/18/23 06/02/24 David Lau PA-C [address] [place] [address] PCP - General Family Medicine 06/03/24 Morris Monreal MD Assigned PCP 04/22/12 09/22/20 Ricky Stanley MD [address] [facility] [address] [place] [phone] Assigned Surgical Provider 05/11/20 Kacy Reyes MD [address] [place] [address] 200 [place], [place] [phone] Assigned Endocrinology Provider 08/12/20 07/31/23 Yohana Briggs APRN FOREIGN BROADCAST SPECIALIST [address] [place] [phone] Assigned PCP 09/23/20 10/20/20 [place] [address] [facility] [address] [place], [place] [address] Assigned Musculoskeletal Provider 10/28/20 11/24/20 Morris Monreal MD Assigned PCP 10/21/20 10/05/21 Valentino William PA-C [address] [facility] [address] [place] [address] Assigned Musculoskeletal Provider 11/25/20 06/20/22 Kizzy Davenport, OD [address] [facility] [place] [address] Assigned Surgical Provider 06/09/2108/22/22 Carlo Bonilla MD [address] [place] [address] Assigned PCP 10/06/21 01/17/22 Kali Ventura PA-C [address] [place] [address] Assigned PCP 01/18/22 07/10/23 [place] [address] [place] [address] [place] [address] Assigned Surgical Provider 09/20/22 Ricky Ramirez MD [address] [place] [address] Assigned PCP 07/11/23 12/09/23 Kyace Jasso PA-C 500 [place] [address] Assigned Endocrinology Provider 08/21/23 12/09/23 Kali Ventura PA-C [address] [place] [address] Assigned PCP 12/10/23 01/09/24 Kacy Reyes MD [address] [place] [address] 200 [place] [address] Assigned Endocrinology Provider 12/10/23 [place] [address] [place] [address] Assigned PCP 01/10/24 documented as of this encounter
--- OUTSIDE RECORDS SUMMARY | 2024-06-20 19:34 | XMS_ITS ---
Author Organization [place] Address [address] [place] [address]. [place] [address] Care Team Providers Care Hydrometeorology Teacher Name Role Phone Kacy Reyes MD Unavailable [phone] Tru Dasilva MD Unavailable David Lau PA-C Primary Care Provider Diabetes Self-Management Education Status:Enrolled (Active) Start date:11/06/2021 Enrollment date:11/06/2021 Continued Care and Services Coordination
--- OUTSIDE RECORDS SUMMARY | 2024-06-20 19:34 | XMS_ITS | Encounter Summary ---
Author Organization [place] Address [facility]0 [facility] [place] [address] Care Team Providers Care Laundry Laborer Name Role Phone Morris Monreal MD Primary Care Provider Unavailable Kacy Reyes MD Unavailable [phone] Morris Monreal MD Unavailable [facility] Valentino Jaquez-C Unavailable Kizzy Davenport OD Unavailable [phone] Carlo Bonilla MD Unavailable [phone] Kali VenturaC Primary Care Provider Kali Ventura-C Unavailable Kizzy Davenport OD Unavailable [phone] Ricky Ramirez MD Unavailable Kayce Jasso-C Unavailable Kali Ventura-C Unavailable [phone] Kacy Reyes MD Unavailable [phone] Tru Dasilva MD Primary Care Provider Tru Dasilva MD Unavailable David LauC Primary Care Provider Encounter Details Date Type Department Care Team (Late st Contact Info) Description 08/06/2021 [facility] Only [place] Centralized Scheduling [address] [place] [phone] Jose Alejandro Ferguson MD [address] [place] [address] Suspected COVID-19 virus infection Social History Tobacco Use Types Packs/Day Years Used Date Smoking Tobacco: Never Smokeless Tobacco: Never Alcohol Use Standard Drinks/Week Comments Yes 0 (1 standard drink = 0.6 oz pur e alcohol) wine PHQ-2 Answer Date Recorded PHQ-2 Score 0 10/08/2020 Comments No Sex and Gender Information Value Date Recorded Sex Assigned at Not on file Legal Sex Female 3:19 AM APPLIANCE PAINTER AND REFINISHER Gender Identity Not on file Sexual Orientation Not on file Occupation Industry Job Start Date Job End Date Not on file Not on file Not on file Not on file COVID-19 Exposure Response Date Recorded In the last month, have you been in contact with someone who was confirmed or suspected to have Coronavirus / COVID-19? No / Unsure 08/08/2021 2:04 PM APPLIANCE PAINTER AND REFINISHER documented as of this encounter Plan of Treatment Upcoming Encounters Date Type Department Care Team (Latest Contact Info) Description 06/24/2024 8:30 AM APPLIANCE PAINTER AND REFINISHER Office Visit [facility] [address] [place] [address] [place] [address] [place], [place] [phone] 07/29/2024 10:45 AM APPLIANCE PAINTER AND REFINISHER Ancillary Procedure [facility] [address] [place] [address] David Lau PA-C [address] [place] [address] Visit for screening mammogram 10/31/2024 3:00 PM CDT Office Visit [place] [address] [place] [phone] Kayce Jasso PA-C [address] [place] [address] 01/02/2025 10:00 AM CDT Office Visit [facility] [address] [place] [phone] David Lau PA-C [address] [place], [place] [phone] 05/03/2025 1:00 PM CDT Office Visit [facility] [address] [facility] [address] [place] [phone] Kacy Reyes MD [address] [place] [address] 200 [place], [place] [address] documented as of this encounter Results * (ABNORMAL) Symptomatic; Auto-generated order COVID-19 Virus (Coronavirus) by PCR Nose (08/08/2021 2:06 PM APPLIANCE PAINTER AND REFINISHER) [facility] SARS CoV2 PCR Positive( A) Negative, Testing sent to reference lab. Results will be returned via unsolicited result 08/09/2021 1:52 PM APPLIANCE PAINTER AND REFINISHER [facility] Comment:POSITIVE: SARS-CoV-2 (COVID-19) RNA detected, presumed positive. Swab NASAL STRUCTURE / Unknown Non-blood Collection / Unknown 08/08/2021 2:06 PM APPLIANCE PAINTER AND REFINISHER 08/08/2021 2:23 PM APPLIANCE PAINTER AND REFINISHER Narrative [facility] - 08/09/2021 1:52 PM APPLIANCE PAINTER AND REFINISHER Testing was performed using the Aptima SARS-CoV-2 Assay on the [employer] Instrument System. Additional information about this Emergency Use Authorization (EUA) assay can be found via the Lab Guide. This test should be ordered for the detection of SARS-CoV-2 in individuals who meet SARS-CoV-2 clinical and/or epidemiological criteria. Test performance is unknown in asymptomatic patients. This test is for in vitro diagnostic use under the FDA EUA for laboratories certified under CLIA to perform high complexity testing. This test has not been FDA cleared or approved. A negative result does not rule out the presence of PCR inhibitors in the specimen or target RNA in concentration below the limit of detection for the assay. The possibility of a false negative should be considered if the patient's recent exposure or clinical presentation suggests COVID-19. This test was validated by the [facility]. This laboratory is certified under the Clinical Laboratory Improvement Amendments of 1988 (CLIA-88) as qualified to perform high complexity laboratory testing. Jose Alejandro Ferguson MD LAB - MICRO GENERAL ORDERABLES F inal Result [facility] Infectious Diseases Diagnostic Lab (IDDL) [address] [facility] [place] [address], [facility] [phone] documented in this encounter Visit Diagnoses Diagnosis Suspected COVID-19 virus infection Visit for screening mammogram Other screening mammogram documented in this encounter Additional Health Concerns Infection Onset Date Last Indicated Resolved Time Rule Out COVID-19 08/08/2021 08/08/2021 08/09/2021 1:52 PM APPLIANCE PAINTER AND REFINISHER COVID-19 08/08/2021 08/08/2021 08/29/2021 11:3 9 PM APPLIANCE PAINTER AND REFINISHER Rule Out C-difficile 01/21/2023 01/22/2023 023 2:33 PM CDT documented as of this encounter Care Teams Laundry Laborer Relationship Specialty Start Date End Date Morris Monreal MD PCP - General 04/21/02 11/17/21 Kali Ventura PA-C [address] [place] [address] PCP - General Family Medicine 11/18/21 12/17/23 [place] [address] [place] [address] PCP - General Family Medicine 12/18/23 06/02/24 David Lau [place]-C [address] [place] [address] PCP - General Family Medicine 06/03/24 Kacy Reyes MD [address] [place] [address] 200 [place] [address] Assigned Endocrinology Provider 08/12/20 07/31/23 Morris Monreal MD Assigned PCP 10/21/20 10/05/21 Valentino William PA-C [address] [facility] [address] [place] [address] Assigned Musculoskeletal Provider 11/25/20 06/20/22 Kizzy Davenport OD [address] [facility] [place] [address] Assigned Surgical Provider 06/09/2108/22/22 Carlo Bonilla MD [address] [place] [address] Assigned PCP 10/06/21 01/17/22 Kali Ventura PA-C [address] [place] [address] Assigned PCP 01/18/22 07/10/23 Kizzy Davenport OD [address] [facility] [place] [address] Assigned Surgical Provider 09/20/22 Ricky Ramirez MD 1390 [place] [address] Assigned PCP 07/11/23 12/09/23 Kayce Jasso PA-C 500 [place] [address] Assigned Endocrinology Provider 08/21/23 12/09/23 Kali Ventura PA-C [address] [place] [address] Assigned PCP 12/10/23 01/09/24 Kacy Reyes MD [address] [place] [address] Assigned Endocrinology Provider 12/10/23 [place] [address] [place] [address] Assigned PCP 01/10/24 documented as of this encounter
--- OUTSIDE RECORDS SUMMARY | 2024-06-20 19:34 | XMS_ITS | Clinical Summary ---
Author Organization [facility] & [facility] Address [place], [place] [address] Care Team Providers Care Stonemason Apprentice Name Role Phone Mariam Diop MD Primary Care Provider Allergies No known active allergies Medications Medication Sig Dispensed Refills Start Date End Date Status diphenhydrAMINE (BENADRYL ALLERGY) 25 mg tablet Take 1 tablet by mouth every 4 hours if needed. 0 08/07/2015 Active glipiZIDE (GLUCOTROL) 10 mg tablet Take 1 tablet by mouth once daily before a meal. 0 08/07/2015 Active Farxiga 5 mg tablet Take 5 mg by mouth. 01/07/2024 Activ e Trulicity 4.5 mg/0.5 mL subcutaneous pen INJECT 4.5 MG SUBCUTANEOUSLY EVERY 7 DAYS 02/24/2024 Active metFORMIN (GLUCOPHAGE) 1,000 mg tablet Take 1,000 mg by mouth two times daily with meals. 11/18/2023 Active amLODIPine (NORVASC) 10 mg tabletIndications: Hypertension Take 1 Tablet (10 mg) by mouth once daily. 100 Tablet 3 03/16/2024 Active lisinopriL (PRINIVIL; ZESTRIL) 10 mg tabletIndications: Hypertension Take 1 Tablet (10 mg) by mouth once daily. 100 Tablet 3 03/16/2024 Active pravastatin (PRAVACHOL) 10 mg tabletIndications: Hypercholesteremia Take 1 Tablet (10 mg) by mouth at bedtime. 100 Tablet 3 03/16/2024 Active Active Problems Problem Noted Date Diagnosed Date Hypertension Hypercholesteremia Diabetes mellitus Encounters Date Type Department Care Team Description 04/13/2024 2:45 PM CDT Nurse/Clinic Staff Only [facility] [address] [place] [address] Education (Freestyle Rick 3 Application) 04/13/2024 Travel 04/06/2024 Telephone [facility] [address] [place] [address] Mariam Diop MD Questions (Alc in arm ) from Last 3 Months Immunizations Name Administration Dates Next Due COVID-19 vaccine (Moderna 100mcg/0.5mL) PF, MDV 11/14/2021,05/28/2021,09/04/2020,2020 COVID-19 vaccine (Moderna 50mcg/0.5mL) 12YO+ BIVALENT PF, MDV 04/11/2022 Influenza A (H1N1), Inactivated 08/21/2009 Influenza, IIV4 04/11/2022,,03/20/2020,2018,05/14/2018,04/07/2017,05/22/2016,1 ,05/11/2014,05/06/2010 Pneumococcal Conj 20-valent (Prevnar 20) 01/06/2022 Pneumococcal Poly,23-Valent (Pneumovax) 03/27/2015 Td, Preservative Free (age > = 7 Years) 12/27/1999 Tdap 08/21/2015,08/21/2009 Tuberculin (PPD) 08/25/2023,02/22/2007 Zoster (Shingrix-RZV, recombinant) 05/22/2020, Family History Medical History Relation Name Comments Diabetes Brother Sham Cancer-prostate Father Cancer-breast Mother Cervical cancer Sister 1 Asyah Diabetes Sister 2 Hilmia Diabetes Sister 3 Efrose Diabetes Sister 4 Nafeesa Diabetes Sister 5 Neseem Diabetes Sister 6 Ashora Relation Name Status Comments Brother Sham Alive Father Maternal Grandfather Maternal Grandmother Mother Paternal Grandfather Paternal Grandmother Sister 1 Asyah Sister 2 Hilmia Alive Sister 3 Efrose Alive Sister 4 Nafeesa Alive Sister 5 Neseem Alive Sister 6 Ashora Alive Social History Tobacco Use Types Packs/Day Years Used Date Smoking Tobacco: Never Smokeless Tobacco: Never Tobacco Cessation:Counseling Given: Yes Alcohol Use Standard Drinks/Week Comments Yes 0 (1 standard drink = 0.6 oz pur e alcohol) Three times per year Social Connections Answer Date Recorded Frequency of Communication with Friends and Fami ly Not on file 03/16/2024 Sex and Gender Information Value Date Recorded Sex Assigned at Not on file Gender Identity Not on file Sexual Orientation Not on file Obstetrics History Para Term AB IAB SAB Ectopic Multiple Livin g Live Births 0 0 0 0 0 0 0 0 0 0 0 Last Filed Vital Signs Vital Sign Reading Time Taken Comments Blood Pressure 110/70 03/16/2024 10:25 AM CDT Pulse 60 03/16/2024 10:25 AM CDT Temperature - - Respiratory Rate - - Oxygen Saturation 98% 03/16/2024 10:25 AM CDT Inhaled Oxygen Concentration - - Weight 59.6 kg (131 lb 4.8 oz) 03/16/2024 10:25 AM CDT Height 151 cm (4' 11.45) 03/16/2024 10:25 AM CD T Body Mass Index 26.12 03/16/2024 10:25 AM CDT Plan of Treatment Health Maintenance Due Date Last Done Comments Depression screening for age 12+ 1974 Mammogram for age 45-75 01/24/2023 01/25/20 (Verified in Care Everywhere or Patient Record) COVID-19 vaccine series (2023- season) 2024 12/24/2023, 04/11/2022, 11/14/2021, Additional history exists Influenza for age 50-64 03/20/2024 04/11/20 22, 04/17/2021, 03/20/2020, Additional history exists BMI (ht and wt on same day) for age 18+ 03/16/2025 03/16/2024 Tetanus booster 08/21/2025 08/21/2015, 08/2009, 12/27/1999 Pap test for age 21-65 12/23/2026 4 (Verified in Care Everywhere or Patient Record) Fecal testing sDNA-FIT (Cologuard) for age 45-75 01/07/2027 01/08/2024, 01/08/2024 (Verified in Care Everywhere or Patient Record) Lipids for age 45-75 12/23/2028 12/24/2023 (Verified in Care Everywhere or Patient Record) Tdap Completed 08/21/2015, 08/21/2009 HIV for age 15-65 Addressed 12/29/2017 (Ve rified in Care Everywhere or Patient Record) Overridden with the intention of not completing the topic Hepatitis C screening for age 18-79 Addressed 05/14/2018 (Verified in Care Everywhere or Patient Record) Overridden with the intention of not completing the topic Zoster (shingles) series for age 50+ Completed 05/22/2020, 03/20/2020 Pneumococcal series for age 6-64 Completed 01/06/2022, 03/27/2015 Care Teams Stonemason Apprentice Relationship Specialty [place] [address] [place] [address] PCP - General Family Practice 03/16/24
--- OUTSIDE RECORDS SUMMARY | 2024-06-20 19:34 | XMS_ITS | Encounter Summary ---
Author Organization [place] Address [facility] [place] [address] Care Team Providers Care Tile Layer Supervisor Name Role Phone Morris Monreal MD Primary Care Provider Unavailable Morris Monreal MD Unavailable UnaMorris Lugo MD Unavailable Unavai Ricky Antony MD Unavailable Kacy Reyes MD Unavailable [phone] Yohana Briggs APRN MOTOR COACH CHAUFFEUR Unavailable Chris Lemon MD Unavailable [phone] Morris Monreal MD Unavailable UnaValentino Vásquez-C Unavailable Kizzy [place]en[place] OD Unavailable [phone] Carlo Bonilla MD Unavailable [phone] Kali Ventura PA-C Primary Care Provider Kali Ventura PA-C Unavailable Kizzy [place] OD Unavailable Ricky Ramirez MD Unavailable Kayce Jasso-C Unavailable Kali Ventura PA-C Unavailable Kacy Reyes MD Unavailable [phone] Tru Dasilva MD Primary Care Provider [phone] Tru Dasilva MD Unavailable David Lau PA-C Primary Care Provider Reason for Visit * Reason Onset Date Comments Diabetes Education 08/25/2018 Encounter Details Date Type Department Care Team (Late st Contact Info) Description 08/25/2018 Telephone [facility] [address] [place] [phone] Sarah Montoya APRN [facility] [id number] [place] [address] Diabetes Education Social History Tobacco Use Types Packs/Day Years Used Date Smoking Tobacco: Never Smokeless Tobacco: Never Alcohol Use Standard Drinks/Week Comments Yes 0 (1 standard drink = 0.6 oz pur e alcohol) wine PHQ-2 Answer Date Recorded PHQ-2 Score 0 07/27/2018 Comments No Sex and Gender Information Value Date Recorded Sex Assigned at Not on file Legal Sex Female 3:19 AM FURNITURE DUSTER Gender Identity Not on file Sexual Orientation Not on file Occupation Industry Job Start Date Job End Date Not on file Not on file Not on file Not on file documented as of this encounter Miscellaneous Notes * Telephone Encounter - Halley Ross - 08/25/2018 10:15 AM CST Diabetes Education Scheduling Outreach #1: Call to patient to schedule. Left message with phone number to call to schedule. Plan for 2nd outreach attempt within 1 week. Halley Ross [facility] ITURE DUSTER documented in this encounter Plan of Treatment Upcoming Encounters Date Type Department Care Team (Latest Contact Info) Description 06/24/2024 8:30 AM FURNITURE DUSTER [facility] Visit [facility] [address] [place] [address] [place] [address] [place] [address] 07/29/2024 10:45 AM FURNITURE DUSTER Ancillary Procedure [facility] [address] [place] [phone] David Lau PA-C [address] [place], [place] 618[address]68 Visit for screening mammogram 10/31/2024 3:00 PM CDT Office Visit [facility] [address] [facility] 200 [place] [phone] Kayce Jasso PA-C 500 [place], [place] [address] 01/02/2025 10:00 AM CDT Office Visit [facility] [address] [place] [phone] David Lau PA-C [address] [place], [place] [address] 05/03/2025 1:00 PM CDT Office Visit [facility] [address] [facility] [address] [place] [phone] Kacy Reyes MD [address] 200 [place], [place] [address] documented as of this encounter Visit Diagnoses Not on filedocumented in this encounter Additional Health Concerns Infection Onset Date Last Indicated Resolved Time Rule Out COVID-19 06/19/2020 06/19/2020 06/20/2020 4:31 PM FURNITURE DUSTER Rule Out COVID-19 08/08/2021 08/08/2021 08/09/2021 1:52 PM FURNITURE DUSTER COVID-19 08/08/2021 08/08/2021 08/29/2021 11:3 9 PM FURNITURE DUSTER Rule Out C-difficile 01/21/2023 01/22/2023 023 2:33 PM CDT documented as of this encounter Care Teams Tile Layer Supervisor Relationship Specialty Start Date End Date Morris Monreal MD PCP - General 04/21/02 11/17/21 Morris Monreal MD PCP - Assigned PCP 05/17/08 09/21/18 Kali Ventura PA-C [address] [place] [address] PCP - General Family Medicine 11/18/21 12/17/23 [place] [address] [place] [address] PCP - General Family Medicine 12/18/23 06/02/24 David Lau PA-C [address] [place] [address] PCP - General Family Medicine 06/03/24 Morris Monreal MD Assigned PCP 04/22/12 09/22/20 Ricky Stanley MD [address]363 [facility] 500 [place] [phone] Assigned Surgical Provider 05/11/20 Kacy Reyes MD [address] [place] [address] 200 [place] [address] Assigned Endocrinology Provider 08/12/20 07/31/23 Yohana Briggs APRN MOTOR COACH CHAUFFEUR [address] [place] [address] Assigned PCP 09/23/20 10/20/20 [place] [address] [address] [facility] [address] [place] [address] Assigned Musculoskeletal Provider 10/28/20 11/24/20 Morris Monreal MD Assigned PCP 10/21/20 10/05/21 Valentino William PA-C [address] [place] [address] Assigned Musculoskeletal Provider 11/25/20 06/20/22 Kizzy [place] OD [address] [facility] [place] [address] Assigned Surgical Provider 06/09/2108/22/22 Carlo Bonilla MD [address] [facility] [address] Assigned PCP 10/06/21 01/17/22 Kali Ventura PA-C [address] [place] [address] Assigned PCP 01/18/22 07/10/23 Kizzy [place] OD [address] [facility] [place] [address] Assigned Surgical Provider 09/20/22 Ricky Ramirez MD 1390 [place] [address] Assigned PCP 07/11/23 12/09/23 Kayce Jasso PA-C 500 [place] [address] Assigned Endocrinology Provider 08/21/23 12/09/23 Kali Ventura PA-C [address] [place] [address] Assigned PCP 12/10/23 01/09/24 Kacy Reyes MD [address] [place] [address] 200 [place] [address] Assigned Endocrinology Provider 12/10/23 [place] [address] [place] [address] Assigned PCP 01/10/24 documented as of this encounter
--- OUTSIDE RECORDS SUMMARY | 2024-06-20 19:34 | XMS_ITS | Encounter Summary ---
Author Organization [place] Address [address] [place] [address]. [place] [address] Care Team Providers Care Sample Color Maker Name Role Phone Kacy Reyes MD Unavailable [phone] Valentino William PA-C Unavailable Kizzy [place] OD Unavailable Kali Ventura PA-C Primary Care Provider Kali Ventura PA-C Unavailable Kizzy [place] OD Unavailable [phone] Ricky Ramirez MD Unavailable [phone] Kayce Jasso PA-C Unavailable Kali Ventura PA-C Unavailable Kacy Reyes MD Unavailable [phone] Tru Dasilva MD Primary Care Provider [phone] Tru Dasilva MD Unavailable David Lau PA-C Primary Care Provider Reason for Visit * Reason Comments Medication Refill Encounter Details Date Type Department Care Team (Late st Contact Info) Description 05/13/[address] [place] [address] Kali Ventura PA-C [address] [place] [address] Medication Refill Social History Tobacco Use Types Packs/Day Years Used Date Smoking Tobacco: Never Smokeless Tobacco: Never Alcohol Use Standard Drinks/Week Comments Yes 0 (1 standard drink = 0.6 oz pur e alcohol) wine PHQ-2 Answer Date Recorded PHQ-2 Score 0 05/16/2022 Comments No Sex and Gender Information Value Date Recorded Sex Assigned at Not on file Legal Sex Female 3:19 AM LOOP TENDER Gender Identity Not on file Sexual Orientation Not on file Occupation Industry Job Start Date Job End Date Not on file Not on file Not on file Not on file COVID-19 Exposure Response Date Recorded In the last 10 days, have yo u been in contact with someone who was confirmed or suspected to have Coronavirus/COVID-19? No / Unsure 05/16/2022 11:23 AM CDT documented as of this encounter Miscellaneous Notes * Telephone Encounter - Eladio Brown RN - 05/15/2022 1:59 PM CDT Call back from patient. Patient says she is still having symptoms. Informed patient should follow-up w/ PCP or be seen in urgent care if needed. Caller transferred to schedule w/ PCP. Eladio Brown RN, BSN Triage Nurse Advisor * Telephone Encounter - Valerie De Souza RN - 05/15/2022 11:31 AM CDT L/M to call. Valerie De Souza RN * Telephone Encounter - Linda Marie RN - 05/14/2022 2:20 PM CDT Sent pharmacy note, pt will need to follow up with PCP if needs fluconazole refill, routed to triage to call pt Linda Marie, RN, BSN [facility] * Telephone Encounter - Kali Ventura PA-C - 05/14/2022 1:56 PM CDT Was just sent 6 days ago. Is patient having symptoms? -guilherme lance * Telephone Encounter - Olivia Magana RN - 05/14/2022 8:20 AM CDT Routing refill request to provider for review/approval because: Drug not on the [facility] refill protocol documented in this encounter Plan of Treatment Upcoming Encounters Date Type Department Care Team (Latest Contact Info) Description 06/24/2024 8:30 AM LOOP TENDER Office Visit [facility] [address] [place] [phone] [place] [address] [place] [address] 07/29/2024 10:45 AM LOOP TENDER Ancillary Procedure [facility] [address] [place] [phone] David Lau PA-C [address] [place], [place] [phone] Visit for screening mammogram 10/31/2024 3:00 PM CDT Office Visit [facility] [address] [place] [address] Kayce Jasso PA-C 500 [place] [address] 01/02/2025 10:00 AM CDT Office Visit [facility] [address] [place] [address] David Lau PA-C [address] [facility] [place] [place] [address] 05/03/2025 1:00 PM CDT Office Visit [facility] [address] [place] [phone] Kacy Reyes MD [address] [place] [address] documented as of this encounter Visit Diagnoses Diagnosis Monilia infection Candidiasis of unspecified site Visit for screening mammogram Other screening mammogram documented in this encounter Additional Health Concerns Infection Onset Date Last Indicated Resolved Time Rule Out C-difficile 01/21/2023 01/22/2023 023 2:33 PM CDT documented as of this encounter Care Teams Sample Color Maker Relationship Specialty Start Date End Date Kali Ventura PA-C [address] [place] [address] PCP - General Family Medicine 11/18/21 12/17/23 [place] [address] [place] [address] PCP - General Family Medicine 12/18/23 06/02/24 David Lau PA-C [address] [facility] [place] [address] PCP - General Family Medicine 06/03/24 Kacy Reyes MD [address] [place] [address] Assigned Endocrinology Provider 08/12/20 07/31/23 Valentino William PA-C [address] [facility] 300 [place] [address] Assigned Musculoskeletal Provider 11/25/20 06/20/22 Kizzy [place], OD [address] [facility] KYLE MANUEL [address] Assigned Surgical Provider 06/09/2108/22/22 Kali Ventura PA-C [address] [place] [address] Assigned PCP 01/18/22 07/10/23 Kizzy [place], OD [address] [place] [place] [address] KYLE MANUEL [address] Assigned Surgical Provider 09/20/22 Ricky Ramirez MD 1390 [place] [address] Assigned PCP 07/11/23 12/09/23 Kayce Jasso PA-C 500 [place] [address] Assigned Endocrinology Provider 08/21/23 12/09/23 Kali Ventura PA-C [address] [place] [address] Assigned PCP 12/10/23 01/09/24 Kacy Reyes MD [address] [place] [address] Assigned Endocrinology Provider 12/10/23 [place] [address] [place] [address] Assigned PCP 01/10/24 documented as of this encounter
--- OUTSIDE RECORDS SUMMARY | 2024-06-20 19:34 | XMS_ITS | Encounter Summary ---
Author Organization [place] Address [address] [place] [address]. [place] [address] Care Team Providers Care Endless Belt Finisher Name Role Phone Kacy Reyes MD Unavailable [phone] Valentino William PA-C Unavailable Kizzy Davenport OD Unavailable Kali Ventura PA-C Primary Care Provider Kali Ventura PA-C Unavailable Kizzy [place] OD Unavailable Ricky Ramirez MD Unavailable [phone] Kayce Jasso PA-C Unavailable Kali Ventura PA-C Unavailable [phone] Kacy Reyes MD Unavailable [phone] Tru Dasilva MD Primary Care Provider [phone] Tru Dasilva MD Unavailable David Lau PA-C Primary Care Provider Reason for Visit * Reason Comments Medication Refill Encounter Details Date Type Department Care Team (Late st Contact Info) Description 01/24/2022 Refill [facility] [address] [place] [phone] Kacy Reyes MD [address] [facility] 200 [place] [address] Medication Refill Social History Tobacco Use Types Packs/Day Years Used Date Smoking Tobacco: Never Smokeless Tobacco: Never Alcohol Use Standard Drinks/Week Comments Yes 0 (1 standard drink = 0.6 oz pur e alcohol) wine PHQ-2 Answer Date Recorded PHQ-2 Score 1 01/06/2022 Comments No Sex and Gender Information Value Date Recorded Sex Assigned at Not on file Legal Sex Female 3:19 AM GRINDER WATCH PARTS Gender Identity Not on file Sexual Orientation Not on file Occupation Industry Job Start Date Job End Date Not on file Not on file Not on file Not on file COVID-19 Exposure Response Date Recorded In the last 10 days, have yo u been in contact with someone who was confirmed or suspected to have Coronavirus/COVID-19? No / Unsure 01/24/2022 1:25 PM CDT documented as of this encounter Miscellaneous Notes * Telephone Encounter - Elizabeth Alexandre, RN - 01/24/2022 11:38 AM CDT Appt 01/29. documented in this encounter Plan of Treatment Upcoming Encounters Date Type Department Care Team (Latest Contact Info) Description 06/24/2024 8:30 AM GRINDER WATCH PARTS Office Visit [facility] [address] [place] [phone] [place] [address] [place] [address] 07/29/2024 10:45 AM GRINDER WATCH PARTS Ancillary Procedure [facility] [address] [place] [phone] David Lau PA-C [address] [place] [address] Visit for screening mammogram 10/31/2024 3:00 PM CDT Office Visit [facility] [address] [facility] [address] [place] [phone] Kayce Jasso PA-C 500 [place], [place] [address] 01/02/2025 10:00 AM CDT Office Visit [facility] [address] [place] [phone] David Lau PA-C [address] [place] [address] 05/03/2025 1:00 PM CDT Office Visit [facility] [address] [facility] [address] [place] [phone] Kacy Reyes MD [address] [place] [address] 200 [place], [place] [address] documented as of this encounter Visit Diagnoses Diagnosis Type 2 diabetes mellitus without retinopathy (H) Type II or unspecified type diabetes mellitus without mention of complication, not stated as uncontrolled Visit for screening mammogram Other screening mammogram documented in this encounter Additional Health Concerns Infection Onset Date Last Indicated Resolved Time Rule Out C-difficile 01/21/2023 01/22/2023 023 2:33 PM CDT documented as of this encounter Care Teams Endless Belt Finisher Relationship Specialty Start Date End Date Kali Ventura PA-C [address] [place] [address] PCP - General Family Medicine 11/18/21 12/17/23 [place] [address] [place] [address] PCP - General Family Medicine 12/18/23 06/02/24 David Lau PA-C [address] [place] [address] PCP - General Family Medicine 06/03/24 Kacy Reyes MD [address] [address] [place] [address] Assigned Endocrinology Provider 08/12/20 07/31/23 Valentino William PA-C [address] [facility] 300 [place] [address] Assigned Musculoskeletal Provider 11/25/20 06/20/22 Kizzy Davenport OD [address] [place] [address] Assigned Surgical Provider 06/09/2108/22/22 Kali Ventura PA-C [address] [place] [address] Assigned PCP 01/18/22 07/10/23 [place] [address] [place] [address] [place] [address] Assigned Surgical Provider 09/20/22 Ricky Ramirez MD 1390 [place] [address] Assigned PCP 07/11/23 12/09/23 Kayce Jasso PA-C 500 [place] [address] Assigned Endocrinology Provider 08/21/23 12/09/23 Kali Ventura PA-C [address] [place] [address] Assigned PCP 12/10/23 01/09/24 Kacy Reyes MD [address] [place] [address] 200 [place] [address] Assigned Endocrinology Provider 12/10/23 [place] [address] [place] [address] Assigned PCP 01/10/24 documented as of this encounter
--- OUTSIDE RECORDS SUMMARY | 2024-06-20 19:34 | XMS_ITS | Encounter Summary ---
Author Organization [place] Address [address] [place] [address]. [place] [address] Care Team Providers Care Wedger Machine Name Role Phone Kacy Reyes MD Unavailable [phone] Kizzy Davenport OD Unavailable [phone] Kali Ventura PA-C Primary Care Provider Kali Ventura PA-C Unavailable [phone] Kizzy Davenport OD Unavailable Ricky Ramirez MD Unavailable [phone] Kayce Jasso PA-C Unavailable Kali Ventura PA-C Unavailable Kacy Reyes MD Unavailable [phone] Tru Dasilva MD Primary Care Provider [phone] Tru Dasilva MD Unavailable David Lau PA-C Primary Care Provider Reason for Visit * Reason Onset Date Comments Formulary Issue 08/21/2022 Trulicity now re quires a prior authorization.-PA APPROVED Encounter Details Date Type Department Care Team (Late st Contact Info) Description 08/21/2022 Telephone [facility] [address] [place] [phone] Kali Ventura PA-C [address] [place] [phone] Formulary Issue (Trulicity now requires a prior authorization.-PA APPROVED ) Social History Tobacco Use Types Packs/Day Years Used Date Smoking Tobacco: Never Smokeless Tobacco: Never Alcohol Use Standard Drinks/Week Comments Yes 0 (1 standard drink = 0.6 oz pur e alcohol) wine PHQ-2 Answer Date Recorded PHQ-2 Score 0 05/16/2022 Comments No Sex and Gender Information Value Date Recorded Sex Assigned at Not on file Legal Sex Female 3:19 AM ALLERGY AND IMMUNOLOGY CHIEF Gender Identity Not on file Sexual Orientation Not on file Occupation Industry Job Start Date Job End Date Not on file Not on file Not on file Not on file COVID-19 Exposure Response Date Recorded In the last 10 days, have yo u been in contact with someone who was confirmed or suspected to have Coronavirus/COVID-19? Unable to assess 08/21/2022 9:55 AM ALLERGY AND IMMUNOLOGY CHIEF documented as of this encounter Miscellaneous Notes * Telephone Encounter - Dre Hernandez - 08/25/2022 1:30 PM CST Images from the original note were not included. Prior Authorization Approval Authorization Effective Date: 07/25/2022 Authorization Expiration Date: 08/25/2023 Medication: Trulicity now requires a prior authorization.-PA APPROVED Approved Dose/Quantity: Reference #: Soft Machines: [employer] - Expected CoPay: CoPay Card Available: Foundation Assistance Needed: Which Pharmacy is filling the prescription (Not needed for infusion/clinic administered): [facility] [place], [place] - [address] [facility] Pharmacy Notified: Yes Patient Notified: Yes RGY AND IMMUNOLOGY CHIEF * Telephone Encounter - Dre Hernandez - 08/24/2022 7:08 PM CST Images from the original note were not included. Central Prior Authorization Team PA Initiation Medication: Trulicity now requires a prior authorization. Insurance Company: [employer] - Pharmacy Filling the Rx: [facility] [place], [place] - [address] [facility] Filling Pharmacy Filling Pharmacy Fax: Start Date: 08/24/2022 RGY AND IMMUNOLOGY CHIEF * Telephone Encounter - Darline Dueñas - 08/21/2022 9:22 AM CST Please do not close this encounter until this has been addressed. (prior auth approved/denied, prescriber refusal to complete prior auth or medication changed/discontinued) Prior Authorization needed on: trulicity 4.5mg/0.5ml Insurance: [facility] through [employer] Bin: [id number] Pcn: [employer] Insurance phone #: [phone] Pharmacy Pharmacy Phone #: [phone] Pharmacy Fax #: [phone] Please let us know if the PA gets approved or denied or if medication is changed ThanksDarline CPhT [facility] RGY AND IMMUNOLOGY CHIEF documented in this encounter Plan of Treatment Upcoming Encounters Date Type Department Care Team (Latest Contact Info) Description 06/24/2024 8:30 AM ALLERGY AND IMMUNOLOGY CHIEF Office Visit [facility] [address] [place] [phone] [place] [address] [place], [place] [address] 07/29/2024 10:45 AM ALLERGY AND IMMUNOLOGY CHIEF Ancillary Procedure [facility] [address] [place] [address] David Lau PA-C [address] [place] [address] Visit for screening mammogram 10/31/2024 3:00 PM CDT Office Visit [facility] [address] [facility] [address] [place] [phone] Kayce Jasso PA-C 500 [place], [place] [address] 01/02/2025 10:00 AM CDT Office [facility] [address] [place] [phone] David Lau PA-C [address] [place], [place] [address] 05/03/2025 1:00 PM CDT Office Visit [facility] [address] [facility] [address] [place] [phone] Kacy Reyes MD [address] [place] [address] 200 [place], [place] [address] documented as of this encounter Visit Diagnoses Not on filedocumented in this encounter Additional Health Concerns Infection Onset Date Last Indicated Resolved Time Rule Out C-difficile 01/21/2023 01/22/2023 023 2:33 PM CDT documented as of this encounter Care Teams Wedger Machine Relationship Specialty Start Date End Date Kali Ventura PA-C [address] [place] [address] PCP - General Family Medicine 11/18/21 12/17/23 [place] [address] [place] [address] PCP - General Family Medicine 12/18/23 06/02/24 David Lau PA-C [address] [place] [address] PCP - General Family Medicine 06/03/24 Kacy Reyes MD [address] [place] [address] Assigned Endocrinology Provider 08/12/20 07/31/23 Kizzy [place]enport OD [address] [place] [address] [place] [address] Assigned Surgical Provider 06/09/2108/22/22 Kali Ventura PA-C [address] [place] [address] Assigned PCP 01/18/22 07/10/23 Kizzy [place] OD [address] [place] [address] [place] [address] Assigned Surgical Provider 09/20/22 Ricky Ramirez MD [address] [place] [address] Assigned PCP 07/11/23 12/09/23 Kayce Jasso PA-C [address] [place] [address] Assigned Endocrinology Provider 08/21/23 12/09/23 Kali Ventura PA-C [address] [place] [address] Assigned PCP 12/10/23 01/09/24 Kacy Reyes MD [address] [facility] 200 [place] [address] Assigned Endocrinology Provider 12/10/23 [place] [address] [place] [address] Assigned PCP 01/10/24 documented as of this encounter
--- OUTSIDE RECORDS SUMMARY | 2024-06-20 19:34 | XMS_ITS | Encounter Summary ---
Author Organization [place] Address [facility] [place] [address] Care Team Providers Care Android Framework Developer Name Role Phone Morris Monreal MD Primary Care Provider Unavailable Kacy Reyes MD Unavailable [phone] Valentino William-C Unavailable Kizzy Davenport OD Unavailable [phone] Carlo Bonilla MD Unavailable [phone] Kali Ventura PA-C Primary Care Provider Kali VenturaC Unavailable [phone] Kizzy Davenport OD Unavailable Ricky Ramirez MD Unavailable [phone] Kayce JassoC Unavailable Kali Ventura PA-C Unavailable Kacy Reyes MD Unavailable [phone] Tru Dasilva MD Primary Care Provider [phone] Tru Dasilva MD Unavailable David Lau PA-C Primary Care Provider Reason for Visit * Reason Comments Medication Refill Encounter Details Date Type Department Care Team (Late st Contact Info) Description 11/05/2021 Refill [facility] [address] [place] [phone] Morris Monreal MD Medication Refill Social History Tobacco Use Types Packs/Day Years Used Date Smoking Tobacco: Never Smokeless Tobacco: Never Alcohol Use Standard Drinks/Week Comments Yes 0 (1 standard drink = 0.6 oz pur e alcohol) wine PHQ-2 Answer Date Recorded PHQ-2 Score 0 10/08/2020 Comments No Sex and Gender Information Value Date Recorded Sex Assigned at Not on file Legal Sex Female 3:19 AM CONTROL SYSTEMS DEVELOPER Gender Identity Not on file Sexual Orientation Not on file Occupation Industry Job Start Date Job End Date Not on file Not on file Not on file Not on file COVID-19 Exposure Response Date Recorded In the last 10 days, have yo u been in contact with someone who was confirmed or suspected to have Coronavirus/COVID-19? No / Unsure 11/06/2021 10:23 AM CDT documented as of this encounter Miscellaneous Notes * Telephone Encounter - Vee Mcelroy RN - 11/05/2021 12:58 PM CDT Routing refill request to provider for review/approval because: Drug not on the [facility] refill protocol Drug not active on patient's medication list Vee Mcelroy RN on 11/05/2021 at 12:59 PM documented in this encounter Plan of Treatment Upcoming Encounters Date Type Department Care Team (Latest Contact Info) Description 06/24/2024 8:30 AM CONTROL SYSTEMS DEVELOPER Office Visit [facility] [address] [place] [phone] [place] [address] [place], [place] [phone] 07/29/2024 10:45 AM CONTROL SYSTEMS DEVELOPER Ancillary Procedure [facility] [address] [place] [address] David Lau PA-C [address] [place], [place] [phone] Visit for screening mammogram 10/31/2024 3:00 PM CDT Office Visit [facility] [address] [place] [phone] Kayce Jasso PA-C [address] [place] [address] 01/02/2025 10:00 AM CDT Office Visit [facility] [address] [place] [phone] David Lau PA-C [address] [place], [place] [phone] 05/03/2025 1:00 PM CDT Office Visit [facility] [address] [place] [phone] Kacy Reyes MD [address] [place] [address] 200 [place], [place] [address]170 documented as of this encounter Visit Diagnoses Not on filedocumented in this encounter Additional Health Concerns Infection Onset Date Last Indicated Resolved Time Rule Out C-difficile 01/21/2023 01/22/2023 023 2:33 PM CDT documented as of this encounter Care Teams Android Framework Developer Relationship Specialty Start Date End Date Morris Monreal MD PCP - General 04/21/02 11/17/21 Kali Ventura PA-C [address] [place] [address] PCP - General Family Medicine 11/18/21 12/17/23 [place] [address] [place] [address] PCP - General Family Medicine 12/18/23 06/02/24 David Lau PA-C [address] [place] [address] PCP - General Family Medicine 06/03/24 Kacy Reyes MD [address] [place] [address] 200 [place], [place] [address]190 Assigned Endocrinology Provider 08/12/20 07/31/23 Valentino William PA-C [address] [facility] [address] [place] [address] Assigned Musculoskeletal Provider 11/25/20 06/20/22 Kizzy Davenport OD [address] [place] [address] K[place] MANUEL [address] Assigned Surgical Provider 06/09/2108/22/22 Carlo Bonilla MD [address] [facility] [place] [address] Assigned PCP 10/06/21 01/17/22 Kali Ventura PA-C [address] [place] [address] Assigned PCP 01/18/22 07/10/23 Kizzy Davenport OD [address] [facility] [place]UEL [address] Assigned Surgical Provider 09/20/22 Ricky Ramirez MD 1390 [place] [address] Assigned PCP 07/11/23 12/09/23 Kayce Jasso PA-C [address] [place] [address] Assigned Endocrinology Provider 08/21/23 12/09/23 Kali Ventura PA-C [address] [place] [address] [id number] Assigned PCP 12/10/23 01/09/24 Kacy Reyes MD [address] [place] [address] Assigned Endocrinology Provider 12/10/23 [place] [address] [place], [place] [phone] Assigned PCP 01/10/24 documented as of this encounter
--- OUTSIDE RECORDS SUMMARY | 2024-06-20 21:59 | XMS_ITS | Encounter Summary ---
Author Organization [place] Address [address] [place] [address]. [place] [address] Care Team Providers Care Black Top Machine Operator Name Role Phone Kacy Reyes MD Unavailable [phone] Valentino William PA-C Unavailable Kizzy Davenport OD Unavailable Kali Ventura PA-C Primary Care Provider Kali Ventura PA-C Unavailable Kizzy [place] OD Unavailable Ricky Ramirez MD Unavailable [phone] Kayce Jasso PA-C Unavailable Kali Ventura PA-C Unavailable Kacy Reyes MD Unavailable [phone] Tru Dasilva MD Primary Care Provider [phone] Tru Dasilva MD Unavailable David Lau PA-C Primary Care Provider Reason for Visit * Reason Comments Medication Refill Encounter Details Date Type Department Care Team (Late st Contact Info) Description 01/24/2022 Refill [facility] [address] [place] [phone] Kacy Reyes MD [address] [facility] [address] [place] [address] Medication Refill Social History Tobacco Use Types Packs/Day Years Used Date Smoking Tobacco: Never Smokeless Tobacco: Never Alcohol Use Standard Drinks/Week Comments Yes 0 (1 standard drink = 0.6 oz pur e alcohol) wine PHQ-2 Answer Date Recorded PHQ-2 Score 1 01/06/2022 Comments No Sex and Gender Information Value Date Recorded Sex Assigned at Not on file Legal Sex Female 3:19 AM SUCTION DREDGE DUMPING SUPERVISOR Gender Identity Not on file Sexual Orientation [...] (Latest Contact Info) Description 06/24/2024 8:30 AM SUCTION DREDGE DUMPING SUPERVISOR Office Visit [facility] [address] [place] [phone] [place] [address] [place] [address] 07/29/2024 10:45 AM SUCTION DREDGE DUMPING SUPERVISOR Ancillary Procedure [facility] [address] [place] [phone] David Lau PA-C [address] [place] [address] Visit for screening mammogram 10/31/2024 3:00 PM CDT Office Visit [facility] [address] [facility] [address] [place] [phone] Kayce Jasso PA-C 500 [place], [place] [address] 01/02/2025 10:00 AM CDT Office Visit [facility] [address] [place] [phone] David Lau PA-C [address] [place] [address] 05/03/2025 1:00 PM CDT Office Visit [facility] [address] [facility] [address] [place] [phone] Kacy Reyes MD [address] [place] [address] 200 [place], [place] [address] documented as of this encounter Visit Diagnoses [...] documented as of this encounter Care Teams Black Top Machine Operator Relationship Specialty Start Date End Date Kali Venutra PA-C [address] [place] [address] PCP - General Family Medicine 11/18/21 12/17/23 [place] [address] [place] [address] PCP - General Family Medicine 12/18/23 06/02/24 David Lau PA-C [address] [place] [address] PCP - General Family Medicine 06/03/24 Kacy Reyes MD [address] [address] [place] [address] Assigned Endocrinology Provider 08/12/20 07/31/23 Valentino William PA-C [address] [facility] [address] [place] [address] Assigned Musculoskeletal Provider 11/25/20 06/20/22 [place] OD [address] [place] [address] Assigned Surgical Provider 06/09/2108/22/22 Kali Ventura PA-C [address] [place] [address] Assigned PCP 01/18/22 07/10/23 [place] [address] [place] [address] [place] [address] Assigned Surgical Provider 09/20/22 Ricky Ramirez MD 1390 [place] [address] Assigned PCP 07/11/23 12/09/23 Kayce Jasso PA-C 500 [place] [address] Assigned Endocrinology Provider 08/21/23 12/09/23 Kali Ventura PA-C [address] [place] [address] Assigned PCP 12/10/23 01/09/24 Kacy Reyes MD [address] [place] [address] 200 [place] [address] Assigned Endocrinology Provider 12/10/23 [place] [address] [place] [address] Assigned PCP 01/10/24 documented as of this encounter
--- OUTSIDE RECORDS SUMMARY | 2024-06-20 21:59 | XMS_ITS | Encounter Summary ---
Author Organization [place] Address [facility] [place] [address] Care Team Providers Care Trash Man Name Role Phone Kacy Reyes MD Unavailable [phone] Tru Dasilva MD Primary Care Provider [phone] Tru Dasilva MD Unavailable Reason for Visit * Reason Comments Medication Refill Encounter Details Date Type Department Care Team (Late st Contact Info) Description 05/16/2024 Refill [facility] [address] [place] [address] Kacy Reyes MD [address] [place] [address] Medication Refill Social History Tobacco [...] re latives? Once a week 12/24/2023 Attends [employer] Services Not on file 12/23 Active Member of Clubs or Organizations Not on f ile 12/24/2023 Attends Club or Organization Meetings Not on rachele e 12/24/2023 Marital Status Not on file 12/24/2023 PHQ-2 Answer Date Recorded PHQ-2 Score 0 12/24/2023 [facility]at [facility] - Occupational [...] on file Legal Sex Female 3:19 AM SEMICONDUCTOR EQUIPMENT TECHNICIAN Gender Identity Not on file Sexual Orientation [...] (Latest Contact Info) Description 06/24/2024 8:30 AM SEMICONDUCTOR EQUIPMENT TECHNICIAN Office Visit [facility] [address] [place] [address] [place] [address] [place] [address] 07/29/2024 10:45 AM SEMICONDUCTOR EQUIPMENT TECHNICIAN Ancillary Procedure [facility] [address] [place] [phone] David Lau PA-C [address] [place] [address] Visit for screening mammogram 10/31/2024 3:00 PM CDT Office Visit [facility] [address] [place] [phone] Kayce Jasso PA-C [address] [place], [place] [address] 01/02/2025 10:00 AM CDT Office Visit [facility] [address] [place] [phone] David Lau PA-C [address] [place], [place] [phone] 05/03/2025 1:00 PM CDT Office Visit [facility] [address] [facility] [address] [place] [phone] Kacy Reyes MD [address] [facility] 200 [place] [address] documented as of this encounter Visit Diagnoses Diagnosis Essential hypertension, benign Hyperlipidemia LDL goal <100 Other and unspecified hyperlipidemia Visit for screening mammogram Other screening mammogram documented in this encounter Care Teams Trash Man Relationship Specialty [place] [address] [place] [address] PCP - General Family Medicine 12/18/23 06/02/24 Kacy Reyes MD [address] [place] [address] 200 [place] [address] Assigned Endocrinology Provider 12/10/23 [place] [address] [place] [address] Assigned PCP 01/10/24 documented as of this encounter
--- OUTSIDE RECORDS SUMMARY | 2024-06-20 21:59 | XMS_ITS | Encounter Summary ---
Author Organization [place] Address [address] [place] [address]. [place] [address] Care Team Providers Care Blood Bank Booking Clerk Name Role Phone Kacy Reyes MD Unavailable [phone] Tru Dasilva MD Primary Care Provider [phone] Tru Dasilva MD Unavailable Reason for Visit * Reason Onset Date Comments Panel Management 05/25/2024 Encounter Details Date Type Department Care Team (Late st Contact Info) Description 05/25/2024 Telephone [facility] [address] [place] [phone] [place] [id number] [place] [address] Panel Management Social History Tobacco Use [...] re latives? Once a week 12/24/2023 Attends [employer] Services Not on file 12/23 Active Member of Clubs or Organizations Not on f ile 12/24/2023 Attends Club or Organization Meetings Not on rachele e 12/24/2023 Marital Status Not on file 12/24/2023 PHQ-2 Answer Date Recorded PHQ-2 Score 0 12/24/2023 [facility] [place] of Occupat ional Health - Occupational Stress [...] in an abandoned building, in an overnight jail, or couch-surfing.) Yes 12/24/2023 Are you worried [...] on file Legal Sex Female 3:19 AM FUEL AGENT Gender Identity Not on file Sexual Orientation Not on file Occupation Industry Job Start Date Job End Date Not on file Not on file Not on file Not on file documented as of this encounter Miscellaneous Notes * Telephone Encounter - Xochilt Hollingsworth - 05/25/2024 10:19 AM CST Pt returned call-mammogram scheduled for 06/03/2024 at [facility]. Shagufta Hollingsworth/ED AGENT * Telephone Encounter - Mica Wallis CMA - 05/25/2024 10:08 AM FUEL AGENT Patient Quality Outreach Patient is due for the following: Breast Cancer Screening - Mammogram Next Steps: Schedule a office visit for mammo Type of outreach: Phone, left message for patient/parent to call back. Questions for provider review: None Mica Wallis CMA AGENT documented in this encounter Plan of Treatment Upcoming Encounters Date Type Department Care Team (Latest Contact Info) Description 06/24/2024 8:30 AM FUEL AGENT Office Visit [facility] [address] [place] [phone] [place] [address] [place] [address] 07/29/2024 10:45 AM FUEL AGENT Ancillary Procedure [facility] [address] [place] [address] David Lau PA-C [address] [place] [address] Visit for screening mammogram 10/31/2024 3:00 PM CDT Office Visit [facility] [address] [place] [phone] Kayce Jasso PA-C 500 [place] [address] 01/02/2025 10:00 AM CDT Office Visit [facility] [address] [place] [phone] David Lau PA-C [address] [place], [place] [address] 05/03/2025 1:00 PM CDT Office Visit [facility] [address] [place] [phone] Kacy Reyes MD [address] [place] [address] documented as of this encounter Visit Diagnoses Not on filedocumented in this encounter Care Teams Blood Bank Booking Clerk Relationship Specialty [place] [address] [place] [address] PCP - General Family Medicine 12/18/23 06/02/24 Kacy Reyes MD [address] [place] [address] Assigned Endocrinology Provider 12/10/23 [place] [address] [place] [address] Assigned PCP 01/10/24 documented as of this encounter
--- OUTSIDE RECORDS SUMMARY | 2024-06-20 21:59 | XMS_ITS | Referral Summary ---
Author Organization [place] Address [facility] [place] [address] Care Team Providers Care Director Index Name Role Phone Kacy Reyes MD Unavailable [phone] Tru Dasilva MD Unavailable David Lau PA-C Primary Care Provider Encounters Date Type Department Care Team Description 06/07/2024 Telephone [facility] [address] [place] [address] Kacy Reyes MD Refill Request (Softclix lancets) 05/25/[address] [address] Tru Dasilva MD Panel Management 05/16/2024 Refill [facility] [address] [place] [phone] Kacy Reyes MD Medication Refill 04/28/2024 Travel 04/28/2024 2:00 PM CDT Office Visit [facility] [address] [place] [address] Kacy Reyes MD Type 2 diabetes mellitus with stage 1 chronic kidney disease, without long-term current use of insulin (H) (Primary Dx) 04/26/2024 Telephone [facility] [address] [place] [phone] Kacy Reyes MD Call Back 04/14/2024 Refill [facility] [address] [place] [phone] Kacy Reyes MD Medication Refill 04/05/2024 Refill [facility] [address] [place] [address] Kacy Reyes MD Medication Refill from Last [...] (12/27/2019): Added automatically from request for surgery [id number] Renal colic 12/13/2019 Right ureteral stone 12/13/2019 Overview (12/13/2019): Added automatically from request for surgery [id number] Bilateral incipient cataracts 09/15/2018 Dry eye 09/15/2018 [...] re latives? 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 [address] [place] [phone] David Lau PA-C [address] [place] [address] Visit for screening mammogram 10/31/2024 3:00 PM CDT Office Visit [facility] [address] [place] [phone] Kayce Jasso PA-C 500 [place] [address] 01/02/2025 10:00 AM CDT Office Visit [facility] [address] [place] [phone] David Lau PA-C [address] [place], [place] [address] 05/03/2025 1:00 PM CDT Office Visit [facility] [address] [place] [phone] Kacy Reyes MD [address] [place] [address] 200 [place] [address] Medical Devices Explanted Type Area School Lunch Monitor Device Identifier Shelf Expiration Date Model / Serial / Lot Stent Ureteral Polaris Ultra [id number] Implanted:Qty: 1 on 12/14/2019 by Jennyfer Stanley MD at [facility] Explanted:Qty: 1 on 12/29/2019 by Jennyfer Stanley MD at [facility] Stent Right: Urethra [employer] 02/24/2022 [id number] / / [id number] Procedures Procedure Name Priority Date/Time Associated Diagnosis [...] BLOOD ORDERABLES Fi nal Result RI LABORATORY [facility] [address], [address] [place] [address] * Creatinine (04/28/2024 2:47 PM CDT) Creatinine [...] Fi nal Result UU LABORATORY [facility] [address] [facility], [address] [place] [address] * Eye Exam - HIM Scan (03/15/2024) RETINOPATHY UNKNOWN Narrative Debra Navarro - 03/15/2024 Bernadette Hanson CMA Eye exam with ophthalmology on this date: 03/15/24 Exam Location: [facility] - in Care Everywhere Patient Reported OTHER Final Result * COLOGUARD(MeetCast) (01/08/2024 12:00 AM CDT) COLOGUARD-ABSTRACT Negative Negative 2023 9:21 PM CDT [facility] (CLIA #:[id number]) Comment: NEGATIVE TEST RESULT. A negative Cologuard [...] Pryor et al, N Engl J Med 2014;370(14):4105-3488) The normal value (reference range) for this assay is negative. COLOGUARD RE-SCREENING RECOMMENDATION: Periodic colorectal cancer screening is an important part of preventive healthcare for asymptomatic individuals at average risk for colorectal cancer. Following a negative Cologuard result, the [employer] Cancer Society and U.S. Multi-Society Task Force screening guidelines recommend a Cologuard re-screening interval of 3 years. References: [employer] Society Guideline for Colorectal Cancer Screening: https://www.cancer.org/cancer/nacbj-ryagpq-oazizn/ikrrhcsqc-gbngyxrda-kiotehn/ac s-rec ommendations.html.; Wander DUARTE, Adrian GONZALEZ, Nadiya PettyK, Colorectal Cancer Screening: Recommendations for Physicians and Patients from the U.S. Multi-Society Task Force on Colorectal Cancer Screening , Am J Gastroenterology 2017; 112:4170-2364. TEST DESCRIPTION: Composite algorithmic analysis of stool [...] Billings. et al, N Engl J Med 2014;370(14):1751-4798.) Cologuard may produce a false negative or false positive result (no colorectal cancer or precancerous polyp present at colonoscopy follow up). A negative Cologuard test result does not guarantee the absence of CRC or advanced adenoma (pre-cancer). The current Cologuard screening interval is every 3 years. ([place] Cancer Society and U.S. Multi-Society Task Force). Cologuard performance data in a 10,000 patient pivotal study using colonoscopy as the reference method can be accessed at the following location: www.Allocab/results. Additional description of the Cologuard test process, warnings and precautions can be found at www.ABODOogAcura Pharmaceuticalsrd.com. Stool specimen (specimen) 01/08/2024 01/09/2024 10:43 AM CDT Tru Dasilva MD LABORATORY Final Result [facility] [address] [place] [address], [place] [phone] [facility] (CLIA #:[id number]) [address] [place] [address] * (ABNORMAL) Lipid panel reflex to direct [...] Final Res ult [facility] LABORATORY [facility] [address] [facility], [address] [place] [address], [place] * Pap Screen with HPV - Recommended [...] for high risk HPV DNA. METHODOLOGY: The Golimi system uses automated extraction, simultaneous amplification of [...] Res ult SPECIALTY LABS Specialty Lab [address] [facility], [address] [address], [facility] MOLECULAR DIAGNOSTICS Molecular Diagnostics [address] [facility], [address] [address], [place] * Albumin Random Urine Quantitative with Creat [...] control, and institution of therapy with an dajfmrtetla-uaqdtmgcor-tsyubv (RENETTA) inhibitor (if the patient can tolerate it). Urine URINE SPECIMEN / Unknown Non-blood Collection / Unknown 11/18/2023 10:26 AM CDT 11/18/2023 10:26 AM CDT Kacy Reyes MD LAB - URINE ORDERABLES Critical access hospital Result [facility]U LABORATORY [facility] Core Lab [address] [facility], [address] [place] [phone] * (ABNORMAL) Basic metabolic panel (Ca, Cl, CO2, Creat, Gluc, K, Na, BUN) (11/18/2023 10:07 AM CDT) [facility] Sodium 142 135 - 145 mmol/L 11/19/2023 [...] 10:07 AM CDT 11/18/2023 10:07 AM CDT Sanjya Mchugh APRN STONE ENGRAVER LAB - BLOOD ORDERABLES Ena l Result [facility] LABORATORY [facility] [address] [facility], [address] [address] * MA SCREENING DIGITAL BILAT - Future [...] STOOLS ORDERABLE S Final Result U LABORATORY [facility] Core Lab [address] [facility], [address] [address], [place] [phone] * Hepatitis C Screen Reflex to HCV RNA Quant and Genotype (05/14/2018 9:50 AM CDT) Hepatitis C Antibody Nonreactive NR^Nonre active 05/15/2018 12:15 PM CDT [facility] Comment: Assay performance characteristics have not been established for newborns, infants, and children Blood specimen (specimen) 05/14/2018 9:50 AM CDT 05/14/2018 9:51 AM CDT Morris Monreal MD LAB - BLOOD ORDERABLES Final Result Performing Organization Address City/[facility]/ZIP Co de Phone Number [facility] [address] [place] [address] * HIV Antigen Antibody Combo (12/29/2017 11:16 AM CDT) HIV Antigen Antibody Combo Nonreactive NR^Nonrea ctive 12/30/2017 10:10 AM CDT [facility] Comment:HIV-1 p24 Ag & HIV-1 /HIV-2 Ab Not Detected Blood specimen (specimen) 12/29/2017 11:16 AM CDT 12/29/2017 11:17 AM CDT Morris Monreal MD LAB - BLOOD ORDERABLES Final Result [address] [address], [place] from Last 3 Months or Most Recently Relevant to Health Maintenance Insurance BCBS OUT OF STATE BCBS OUT OF STATE Advance Directives For more information, please contact: [phone] * Full Code (Latest Code Status on File) Date Activated Date Inactivated Comments 12/14/2019 12:33 PM 12/29/2019 12:59 PM Question Answer Comments Code status determined by: Discussion with patie nt/legal decision maker * Full Code Date Activated Date Inactivated Comments 12/13/2019 2:40 PM 12/14/2019 12:33 PM Question Answer Comments Code status determined by: Discussion with patie nt/legal decision maker Care Teams Director Index Relationship Specialty Start Date End Date David Lau PA-C [address] [place] [address] PCP - General Family Medicine 06/03/24 Kacy Reyes MD [address] [facility] [address] [place] [address] Assigned Endocrinology Provider 12/10/23 [place] [address] [place] [address] Assigned PCP 01/10/24
--- OUTSIDE RECORDS SUMMARY | 2024-06-20 21:59 | XMS_ITS | Encounter Summary ---
Author Organization [place] Address [facility] [place] [address] Care Team Providers Care Stereoplotter Operator Name Role Phone Kacy Reyes MD Unavailable [phone] Tru Dasilva MD Primary Care Provider [phone] Tru Dasilva MD Unavailable Reason for Visit * Reason Comments Diabetes Encounter Details Date Type Department Care Team (Late st Contact Info) Description 04/28/2024 2:00 PM CDT Office Visit [facility] [address] [address] [place] [address] Kacy Reyes MD [address] [place] [address] Type 2 diabetes mellitus with [...] re latives? Once a week 12/24/2023 Attends [employer] Not on file 12/23 Active Member of Clubs or Organizations Not on f ile 12/24/2023 Attends Club or Organization Meetings Not on rachele e 12/24/2023 Marital Status Not on file 12/24/2023 PHQ-2 Answer Date Recorded PHQ-2 Score 0 12/24/2023 [facility] of Occupat ional Health - Occupational [...] on file Legal Sex Female 3:19 AM PERINATAL SOCIAL WORKER Gender Identity Not on file Sexual Orientation [...] Reyes MD - 04/28/2024 2:00 PM CDT [facility] Dr Reyes, Endocrinology Department [address] [place] [address] Appointment [phone] [place]: Thursday - Please check the cost coverage [...] to each and every visit with your Assistant Clinical Director. Your blood glucose CGM/meter/insulin pump will be downloaded at every appointment. Please arrive 15 minutes before your scheduled appointment. This will allow for your blood glucose CGM/meter/insulin pump to be downloaded. If you are wearing DEXCOM please bring wall covering contractor or sharing code from the Dexcom Clarity Boone so thatit can be downloaded. If you are using FREESTYLE RICK personal sensors please bring the reader. TO UPLOAD THE KidzVuzYLE RICK: Connecting to the Clinic on the Rick Boone: Step 1: Open the Settings Menu. Click the three blue lines to open the Settings Menu. Step 2: Click Connected Apps. Step 3: Click Connect or Manage next to [employer]. Step 4: Clinic Connect to a Practice: Step 5: Link to a practice: To connect to [place] Rick enter the following Practice ID: [id number] in the field provided and click the [...] are often low Patient guide on hypoglycemia http://www.hormone.org/Resources/upload/ibjxdaq-xcamg-mbrzxqygl-lzc-xfpzorezki-t ypoglycemia-701519.pdf documented in this encounter Progress Notes * [...] of scar tissues mass), Dr. Chris Lemon, [facility] Family Hx: Family History Problem Relation Age [...] Male Other Topics Concern Parent/sibling w/ CABG, [place] or angioplasty before 65F 55M? Yes Social [...] min Stress: No Stress Concern Present (12/24/2023) [place] [place] of Occupational Health - Occupational Stress Questionnaire Feeling of Stress : Only a little Social Connections: Unknown (03/16/2024) Received from [email or web address][employer] & [facility] Social Connections Frequency of Communication [...] pressure control, and institution of therapy withan mbfxygehnmm-hxyodicpjq-gpmogc (RENETTA) inhibitor (if the patient can tolerate [...] noted in AVS Kacy Reyes MD Endocrinology [facility] CC: Morris Monreal documented in this encounter [...] results found for: MICROALBUMIN Lidia Hanson CMA [facility] Endocrinology [place] [phone] * Bernadette Hanson CMA - 04/28/2024 2:00 PM CDT Images from the original note were not included. documented in this encounter Plan of Treatment Upcoming Encounters Date Type Department Care Team (Latest Contact Info) Description 06/24/2024 8:30 AM PERINATAL SOCIAL WORKER Office Visit [facility] [address] [place] [address] [place] [address] [place] [address] 07/29/2024 10:45 AM PERINATAL SOCIAL WORKER Ancillary Procedure [facility] [address] [place] [phone] David Lau PA-C [address] [place], [place] [phone] Visit for screening mammogram 10/31/2024 3:00 PM CDT Office Visit [facility] [address] [place] [address] Kayce Jasso PA-C 500 [place] [address] 01/02/2025 10:00 AM CDT Office Visit [facility] [address] [place] [phone] David Lau PA-C [address] [place], [place] [address] 05/03/2025 1:00 PM CDT Office Visit [facility] [address] [place] [address] Kacy Reyes MD [address] [place] [address] Scheduled Orders Name Type Priority Associated Diagnoses [...] BLOOD ORDERABLES Fi nal Result U LABORATORY [facility] [place] Core Lab [address] [facility], [address] [place] [address], [facility] * (ABNORMAL) Hemoglobin A1c (04/28/2024 2:47 PM [...] BLOOD ORDERABLES Fi nal Result RI LABORATORY [facility] Lab [address], [address] [place] [address], [facility] documented in this encounter Visit Diagnoses Diagnosis Type 2 diabetes mellitus with stage 1 chronic kidney disease, without long-term current use of insulin (H)- Primary Visit for screening mammogram Other screening mammogram documented in this encounter Care Teams Stereoplotter Operator Relationship Specialty [place] [address] [place] [address] PCP - General Family Medicine 12/18/23 06/02/24 Kacy Reyes MD [address] [place] [address] Assigned Endocrinology Provider 12/10/23 [place] [address] [place] [address] Assigned PCP 01/10/24 documented as of this encounter
--- OUTSIDE RECORDS SUMMARY | 2024-06-20 21:59 | XMS_ITS | Encounter Summary ---
Author Organization [place] Address [facility] [place] [address] Care Team Providers Care Accountant Bookkeeper Name Role Phone Kizzy Davenport OD Unavailable Kacy Reyes MD Unavailable [phone] Tru Dasilva MD Primary Care Provider Tru Dasilva MD Unavailable Reason for Visit * Reason Comments Medication Refill Encounter Details Date Type Department Care Team (Late st Contact Info) Description 04/05/2024 Refill [facility] [address] [place] [address] Kacy Reyes MD [address] [place] [address] Medication Refill Social History Tobacco [...] Answer Date Recorded PHQ-2 Score 0 12/24/2023 [facility] [place] of Occupat ional Health - Occupational Stress [...] in an abandoned building, in an overnight custodial, or couch-surfing.) Yes 12/24/2023 Are you worried [...] on file Legal Sex Female 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 Gender Identity Not on file Sexual Orientation Not on file Occupation Industry Job Start Date Job End Date Not on file Not on file Not on file Not on file documented as of this encounter Plan of Treatment Upcoming Encounters Date Type Department Care Team (Latest Contact Info) Description 06/24/2024 8:30 AM PHOTOCOPYING EQUIPMENT REPAIRER Office Visit [facility] [address] [place] [address] [place] [address] [place] [address] 07/29/2024 10:45 AM PHOTOCOPYING EQUIPMENT REPAIRER Ancillary Procedure [facility] [address] [place] [phone] David Lau PA-C [address] [place], [place] [phone] Visit for screening mammogram 10/31/2024 3:00 PM CDT Office Visit [place] [address] [facility] 200 [place] [phone] Kayce Jasso PA-C [address] [place], [place] [phone] 01/02/2025 10:00 AM CDT Office Visit [facility] [address] [place] [phone] David Lau PA-C [address] [place] [address] 05/03/2025 1:00 PM CDT Office Visit [facility] [address] [place] [phone] Kacy Reyes MD [address] [place] [address] documented as of this encounter Visit Diagnoses Diagnosis Type 2 diabetes mellitus with stage 1 chronic kidney disease, without long-term current use of insulin (H) Visit for screening mammogram Other screening mammogram documented in this encounter Care Teams Accountant Bookkeeper Relationship Specialty [place] [address] [place] [address] PCP - General Family Medicine 12/18/23 06/02/24 Kizzy Davenport OD [address] [facility] [place] [address] Assigned Surgical Provider 09/20/22 Kacy Reyes MD [address] [place] [address] 200 [place] [address] Assigned Endocrinology Provider 12/10/23 [place] [address] [place] [address] Assigned PCP 01/10/24 documented as of this encounter
--- OUTSIDE RECORDS SUMMARY | 2024-06-20 21:59 | XMS_ITS | Encounter Summary ---
Author Organization [place] Address [facility] [place] [address] Care Team Providers Care Impact Retail Service Merchandiser Name Role Phone Kacy Reyes MD Unavailable [phone] Kali Ventura PA-C Primary Care Provider Kali Ventura PA-C Unavailable Kizzy Davenport OD Unavailable Ricky Ramirez MD Unavailable [phone] Kayce Jasso PA-C Unavailable Kali Ventura PA-C Unavailable Kacy Reyes MD Unavailable [phone] Tru Dasilva MD Primary Care Provider [phone] Tru Dasilva MD Unavailable David Lau PA-C Primary Care Provider Reason for Visit * Reason Onset Date Comments Refill Request 01/02/2023 Encounter Details Date Type Department Care Team (Late st Contact Info) Description 01/02/2023 Refill [facility] [address] [place] [address] Kacy Reyes MD [address] [address] [place] [address] Refill Request Social History Tobacco Use Types Packs/Day Years Used Date Smoking Tobacco: Never Smokeless Tobacco: Never Alcohol Use Standard Drinks/Week Comments Yes 0 (1 standard drink = 0.6 oz pur e alcohol) wine PHQ-2 Answer Date Recorded PHQ-2 Score 0 10/31/2022 Comments No Sex and Gender Information Value Date Recorded Sex Assigned at Not on file Legal Sex Female 3:19 AM FEED MIXER HELPER Gender Identity Not on file Sexual Orientation [...] (Latest Contact Info) Description 06/24/2024 8:30 AM FEED MIXER HELPER Office Visit [facility] [address] [place] [phone] [place] [address] [place] [address] 07/29/2024 10:45 AM FEED MIXER HELPER Ancillary Procedure [facility] [address] [place] [address] David Lau PA-C [address] [place], [place] [phone] Visit for screening mammogram 10/31/2024 3:00 PM CDT Office Visit [facility] [address] [place] [phone] Kayce Jasso PA-C [address] [place], [place] [address] 01/02/2025 10:00 AM CDT Office Visit [facility] [address] [place] [address] David Lau PA-C [address] [place] [address] 05/03/2025 1:00 PM CDT Office Visit [facility] [address] [place] [address] Kacy Reyes MD [address] [facility] [address] [place], [place] [address] documented as of this encounter Visit Diagnoses Not on filedocumented in this encounter Additional Health Concerns Infection Onset Date Last Indicated Resolved Time Rule Out C-difficile 01/21/2023 01/22/2023 023 2:33 PM CDT documented as of this encounter Care Teams Impact Retail Service Merchandiser Relationship Specialty Start Date End Date Kali Ventura PA-C [address] [place] [address] PCP - General Family Medicine 11/18/21 12/17/23 [place] [address] [place] [address] PCP - General Family Medicine 12/18/23 06/02/24 David Lau PA-C [address] [place] [address] PCP - General Family Medicine 06/03/24 Kacy Reyes MD [address] [place], [place] [address] Assigned Endocrinology Provider 08/12/20 07/31/23 Kali Ventura PA-C [address] [place] [address] Assigned PCP 01/18/22 07/10/23 Kizzy Davenport OD [address] [place] [address] Assigned Surgical Provider 09/20/22 Ricky Ramirez MD [address] [place] [address] Assigned PCP 07/11/23 12/09/23 Kayce Jasso PA-C 500 [place] [address] Assigned Endocrinology Provider 08/21/23 12/09/23 Kali Ventura PA-C [address] [place] [address] Assigned PCP 12/10/23 01/09/24 Kacy Reyes MD [address] [place] [address] Assigned Endocrinology Provider 12/10/23 [place] [address] [place] [address] Assigned PCP 01/10/24 documented as of this encounter
--- OUTSIDE RECORDS SUMMARY | 2024-06-20 21:59 | XMS_ITS | Encounter Summary ---
Author Organization [facility] Address [address] [place] [address]. [place] [address] Care Team Providers Care Diesel Tractor Operator Name Role Phone Kacy Reyes MD Unavailable [phone] Kizzy Davenport OD Unavailable [phone] Kali Ventura PA-C Primary Care Provider Kali Ventura PA-C Unavailable [phone] Kizzy Davenport OD Unavailable Ricky Ramirez MD Unavailable [phone] Kayce Jasso PA-C Unavailable Kali Ventura PA-C Unavailable Kacy Reyes MD Unavailable [phone] Tru Dasilva MD Primary Care Provider [phone] Tru Dasilva MD Unavailable David Lau PA-C Primary Care Provider Reason for Visit * Reason Onset Date Comments Formulary Issue 08/21/2022 Trulicity now re quires a prior authorization.-PA APPROVED Encounter Details Date Type Department Care Team (Late st Contact Info) Description 08/21/2022 Telephone [facility] [address] [place] [phone] Kali Ventura PA-C [address] [place] [address] [phone] Formulary Issue (Trulicity now requires a prior [...] on file Legal Sex Female 3:19 AM EQUIPMENT SPECIALIST Gender Identity Not on file Sexual Orientation Not on file Occupation Industry Job Start Date Job End Date Not on file Not on file Not on file Not on file COVID-19 Exposure Response Date Recorded In the last 10 days, have yo u been in contact with someone who was confirmed or suspected to have Coronavirus/COVID-19? Unable to assess 08/21/2022 9:55 AM EQUIPMENT SPECIALIST documented as of this encounter Miscellaneous Notes * Telephone Encounter - Dre Hernandez - 08/25/2022 1:30 PM CST Images from the original note were not included. Prior Authorization Approval Authorization Effective Date: 07/25/2022 Authorization Expiration Date: 08/25/2023 Medication: Trulicity now requires a prior authorization.-PA APPROVED Approved Dose/Quantity: Reference #: [employer] Systems: [employer] - Expected CoPay: CoPay Card Available: Foundation Assistance Needed: Which Pharmacy is filling the prescription (Not needed for infusion/clinic administered): [facility] [place], [place] - [address] [facility] Pharmacy Notified: Yes Patient Notified: Yes PMENT SPECIALIST * Telephone Encounter - Dre Hernandez - 08/24/2022 7:08 PM CST Images from the original note were not included. Central Prior Authorization Team PA Initiation Medication: Trulicity now requires a prior authorization. Insurance Company: [employer] - Pharmacy Filling the Rx: [facility] [place], [place] - [address] [facility] Filling Pharmacy Filling Pharmacy Fax: Start Date: 08/24/2022 PMENT SPECIALIST * Telephone Encounter - Darline Dueñas - 08/21/2022 9:22 AM CST Please do not close this encounter until this has been addressed. (prior auth approved/denied, prescriber refusal to complete prior auth or medication changed/discontinued) Prior Authorization needed on: trulicity 4.5mg/0.5ml Insurance: [facility] through [employer]ELLE Bin: [id number] Pcn: [employer] Insurance phone #: [phone] Pharmacy Pharmacy Phone #: [phone] Pharmacy Fax #: [phone] Please let us know if the PA gets approved or denied or if medication is changed ThanksDarline CPhT [facility] PMENT SPECIALIST documented in this encounter Plan of Treatment Upcoming Encounters Date Type Department Care Team (Latest Contact Info) Description 06/24/2024 8:30 AM EQUIPMENT SPECIALIST Office Visit [facility] [address] [place] [phone] [place] [address] [place], [place] [phone] 07/29/2024 10:45 AM EQUIPMENT SPECIALIST Ancillary Procedure [facility] [address] [place] [address] David Lau PA-C [address] [place] [address] Visit for screening mammogram 10/31/2024 3:00 PM CDT Office Visit [facility] [address] [facility] [address] [place] [phone] Kayce Jasso PA-C [address] [place], [place] [address] 01/02/2025 10:00 AM CDT Office Visit [facility] [address] [place] [phone] David Lau PA-C [address] [place], [place] [phone] 05/03/2025 1:00 PM CDT Office Visit [facility] [address] [facility] [address] [place] [phone] Kacy Reyes MD [address] [place] [address] 200 [place], [place] [address] documented as of this encounter Visit Diagnoses Not on filedocumented in this encounter Additional Health Concerns Infection Onset Date Last Indicated Resolved Time Rule Out C-difficile 01/21/2023 01/22/2023 023 2:33 PM CDT documented as of this encounter Care Teams Diesel Tractor Operator Relationship Specialty Start Date End Date Kali Ventura PA-C [address] [place] [address] PCP - General Family Medicine 11/18/21 12/17/23 [place] [address] [place] [address] PCP - General Family Medicine 12/18/23 06/02/24 David Lau PA-C [address] [place] [address] PCP - General Family Medicine 06/03/24 Kacy Reyes MD [address] [place] [address] Assigned Endocrinology Provider 08/12/20 07/31/23 Kizzy Davenport OD [address] [place] [address] [place] [address] Assigned Surgical Provider 06/09/2108/22/22 Kali Ventura PA-C [id number] [place] [address] Assigned PCP 01/18/22 07/10/23 Kizzy Davenport OD [address] [place] [address] [place] [address] Assigned Surgical Provider 09/20/22 Ricky Ramirez MD [address] [place] [address] Assigned PCP 07/11/23 12/09/23 Kayce Jasso PA-C [address] [place] [address] Assigned Endocrinology Provider 08/21/23 12/09/23 Kali Ventura PA-C [address] [place] [address] Assigned PCP 12/10/23 01/09/24 Kacy Reyes MD [address] [facility] 200 [place] [address] Assigned Endocrinology Provider 12/10/23 [place] [address] [place] [address] Assigned PCP 01/10/24 documented as of this encounter
--- OUTSIDE RECORDS SUMMARY | 2024-06-20 21:59 | XMS_ITS | Encounter Summary ---
Author Organization [place] Address [facility] [place] [address] Care Team Providers Care Top Stop Attacher Name Role Phone Kacy Reyes MD Unavailable [phone] Tru Dasilva MD Primary Care Provider [phone] Tru Dasilva MD Unavailable Reason for Visit * Reason Onset Date Comments Call Back 04/26/2024 Encounter Details Date Type Department Care Team (Late st Contact Info) Description 04/26/2024 Telephone [facility] [address] [place] [address] Kacy Reyes MD [address] [place] [address] Call Back Social History Tobacco [...] re latives? Once a week 12/24/2023 Attends Bahai Services Not on file 12/23 Active Member of Clubs or Organizations Not on f ile 12/24/2023 Attends Club or Organization Meetings Not on rachele e 12/24/2023 Marital Status Not on file 12/24/2023 PHQ-2 Answer Date Recorded PHQ-2 Score 0 12/24/2023 [facility] of Occupat ional Health - Occupational Stress [...] in an abandoned building, in an overnight senior living, or couch-surfing.) Yes 12/24/2023 Are you worried [...] on file Legal Sex Female 3:19 AM HOTEL BAGGAGE HANDLER Gender Identity Not on file Sexual Orientation Not on file Occupation Industry Job Start Date Job End Date Not on file Not on file Not on file Not on file documented as of this encounter Miscellaneous Notes * Telephone Encounter - Bernadette Hanson CMA - 04/26/2024 12:57 PM CDT I will set it up at her appointment in 2 days. Lidia Hanson CMA -[facility] Endocrinology [place] [phone] * Telephone Encounter - Adrienne Felder - 04/26/2024 12:15 PM CDT [facility] Call Center Phone Message May a detailed message be left on voicemail: yes Reason for Call: Other: patient wondering if you can read her blood sugars from her Freestyle that's on her arm. Please call to discuss. documented in this encounter Plan of Treatment Upcoming Encounters Date Type Department Care Team (Latest Contact Info) Description 06/24/2024 8:30 AM HOTEL BAGGAGE HANDLER Office Visit [facility] [address] [place] [address] [place] [address] [place] [address] 07/29/2024 10:45 AM HOTEL BAGGAGE HANDLER Ancillary Procedure [facility] [address] [place] [address] David Lau PA-C [address] [place], [place] [phone] Visit for screening mammogram 10/31/2024 3:00 PM CDT Office Visit [facility] [address] [place] [phone] Kayce Jasso PA-C 500 [place] [address] 01/02/2025 10:00 AM CDT Office Visit [facility] [address] [place] [phone] David Lau PA-C [address] [place] [address] 05/03/2025 1:00 PM CDT Office Visit [facility] [address] [place] [address] Kacy Reyes MD [address] [place] [address] 200 [place] [address] documented as of this encounter Visit Diagnoses Not on filedocumented in this encounter Care Teams Top Stop Attacher Relationship Specialty [place] [address] [place] [address] PCP - General Family Medicine 12/18/23 06/02/24 Kacy Reyes MD [address] [place] [address] 200 [place] [address] Assigned Endocrinology Provider 12/10/23 [place] [address] [place] [address] Assigned PCP 01/10/24 documented as of this encounter
--- OUTSIDE RECORDS SUMMARY | 2024-06-20 21:59 | XMS_ITS | Clinical Summary ---
Author Organization [place] Address [address] [facility] [place] [address] Care Team Providers Care Safety Relief Valve Technician Name Role Phone Kacy Reyes MD Unavailable [phone] Tru Dasilva MD Unavailable David Lau PA-C [...] (12/27/2019): Added automatically from request for surgery [id number] Renal colic 12/13/2019 Right ureteral stone 12/13/2019 Overview (12/13/2019): Added automatically from request for surgery [id number] Bilateral incipient cataracts 09/15/2018 Dry eye 09/15/2018 [...] Type Department Care Team Description 06/07/2024 Telephone [facility] [address] [place] [phone] Kacy Reyes MD Refill Request (Softclix lancets) 05/25/[address] [address] Tru Dasilva MD Panel Management 05/16/2024 Refill [facility] [address] [place] [phone] Kacy Reyes MD Medication Refill 04/28/2024 2:00 PM CDT Office Visit [facility] [address] [place] [address] Kacy Reyes MD Type 2 diabetes mellitus with stage 1 chronic kidney disease, without long-term current use of insulin (H) (Primary Dx) 04/28/2024 Travel 04/26/2024 Telephone [facility] [address] [employer] [address] [place] [phone] Kacy Reyes MD Call Back 04/14/2024 Refill [facility] [address] [employer] [address] [place] [address] Kacy Reyes MD Medication Refill 04/05/2024 Refill [facility] [address] [employer] [address] [place] [address] Kacy Reyes MD Medication Refill from Last [...] re latives? Once a week 12/24/2023 Attends Baptism Services Not on file 12/23 Active Member of Clubs or Organizations Not on f ile 12/24/2023 Attends Club or Organization Meetings Not on rachele e 12/24/2023 Marital Status Not on file 12/24/2023 PHQ-2 Answer Date Recorded PHQ-2 Score 0 12/24/2023 [facility] of Occupat ional Health - Occupational Stress [...] an abandoned building, in an overnight senior care, or couch-surfing.) Yes 12/24/2023 Are you worried [...] on file Legal Sex Female 3:19 AM FINANCIAL DEALERS Gender Identity Not on file Sexual Orientation [...] (Latest Contact Info) Description 06/24/2024 8:30 AM FINANCIAL DEALERS Office Visit [facility] [address] [place] [phone] [place] [address] [place] [address] 07/29/2024 10:45 AM FINANCIAL DEALERS Ancillary Procedure [facility] [address] [place] [phone] David Lau PA-C [address] [place], [place] [phone] Visit for screening mammogram 10/31/2024 3:00 PM CDT Office Visit [facility] [address] [facility] [address] [place] [phone] Kayce Jasso PA-C 500 [place] [address] 01/02/2025 10:00 AM CDT Office Visit [facility] [address] [place] [phone] David Lau PA-C [address] [place], [place] [address] 05/03/2025 1:00 PM CDT Office Visit [facility] [address] [facility] [address] [place] [phone] Kacy Reyes MD [address] [place] [address] 200 [place] [address] Health Maintenance Due Date Last Done Comments [...] this topic Medical Devices Explanted Type Area Programmable Logic Controller Assembler Device Identifier Shelf Expiration Date Model / Serial / Lot Stent Ureteral Polaris Ultra [id number] Implanted:Qty: 1 on 12/14/2019 by Jennyfer Stanley MD at [facility] Explanted:Qty: 1 on 12/29/2019 by Jennyfer Stanley MD at [facility] Stent Right: Urethra [employer] 02/24/2022 [id number] / / [id number] Procedures Procedure Name Priority Date/Time Associated Diagnosis Comments CREATININE Routine 04/28/2024 2:47 PM CDT Type 2 diabetes mellitus with stage 1 chronic kidney disease, without long-term current use of insulin (H) HEMOGLOBIN A1C Routine 04/28/2024 2:47 PM CDT Type 2 diabetes mellitus with stage 1 chronic kidney disease, without long-term current use of insulin (H) EYE EXAM - HIM SCAN Routine 03/15/2024 COLOGUARD([employer]) Routine 01/08/2024 12:00 AM CDT Screen [...] BLOOD ORDERABLES Fi nal Result [facility] [address], [address] [place] [address] * Creatinine (04/28/2024 2:47 PM CDT) [facility] Creatinine 0.61 0.51 - 0.95 mg/dL 04/29/2024 3:01 AM CDT [facility] GFR Estimate >90 >60 mL/min/1.7 3m2 04/29/2024 3:01 AM CDT [facility] Comment:eGFR calculated us2020 CKD-EPI equation. Blood BLOOD SPECIMEN / Unknown Venipuncture / Unknown 04/28/2024 2:47 PM CDT 04/28/2024 2:47 PM CDT Kacy Reyes MD LAB - BLOOD ORDERABLES Fi nal Result U [facility] [place] [facility] [address] [facility], [address] [place] [address] * Eye Exam - HIM Scan (03/15/2024) [facility] RETINOPATHY UNKNOWN Narrative Debra Navarro - 03/15/2024 Bernadette Hanson CMA Eye exam with ophthalmology on this date: 03/15/24 Exam Location: [facility] - in Care Everywhere Patient Reported OTHER Final Result * COLOGUARD([employer]) (01/08/2024 12:00 AM CDT) [facility] COLOGUARD-ABSTRACT Negative Negative 2023 9:21 PM CDT [facility] (CLIA #:[id number]) Comment: NEGATIVE TEST RESULT. A negative Cologuard [...] Pryor et al, N Engl J Med 2014;370(14):2331-3700) The normal value (reference range) for this assay is negative. COLOGUARD RE-SCREENING RECOMMENDATION: Periodic colorectal cancer screening is an important part of preventive healthcare for asymptomatic individuals at average risk for colorectal cancer. Following a negative Cologuard result, the [employer] Cancer Society and U.S. Multi-Society Task Force screening guidelines recommend a Cologuard re-screening interval of 3 years. References: [employer] Cancer Society Guideline for Colorectal Cancer Screening: https://www.cancer.org/cancer/bcrfx-vmkhis-sspzpq/kuctieyux-yxmfyxots-lsoauek/ac s-rec ommendations.html.; Wander DK, Adrian CR, Nadiya PettyK, Colorectal Cancer Screening: Recommendations for Physicians and Patients from the U.S. Multi-Society Task Force on Colorectal Cancer Screening , Am J Gastroenterology 2017; 112:1916-2706. TEST DESCRIPTION: Composite algorithmic analysis of stool [...] (Tio Carlson al, N Engl J Med 2014;370(14):2794-7458.) Cologuard may produce a false negative or false positive result (no colorectal cancer or precancerous polyp present at colonoscopy follow up). A negative Cologuard test result does not guarantee the absence of CRC or advanced adenoma (pre-cancer). The current Cologuard screening interval is every 3 years. (Vincent[employer] Cancer Society and U.S. Multi-Society Task Force). Cologuard performance data in a 10,000 patient pivotal study using colonoscopy as the reference method can be accessed at the following location: www.[employer]/results. Additional description of the Cologuard test process, warnings and precautions can be found at www.[employer]Foxword[employer].com. Stool specimen (specimen) 01/08/2024 01/09/2024 10:43 AM CDT Tru Dsailva MD LABORATORY Final Result [facility] [address] [phone] [facility] (CLIA #:[id number]) [address] [place] [address] * (ABNORMAL) Lipid panel reflex to direct [...] BLOOD ORDERABLES Final Res ult [facility] [place] [facility] [address] [facility], [address] [place] [phone] * Pap Screen with HPV - [...] for high risk HPV DNA. METHODOLOGY: The Up[employer] system uses automated extraction, simultaneous amplification of [...] Res ult SPECIALTY LAB[facility] Specialty Lab [address] [facility], [address] [address] MOLECULAR DIAGNOSTICS Molecular Diagnostics [address] [facility], [address] [phone] * Albumin Random Urine Quantitative with [...] control, and institution of therapy with an rtvgjuwrjah-wgjehernjk-nrjhmb (RENETTA) inhibitor (if the patient can tolerate it). Urine URINE SPECIMEN / Unknown Non-blood Collection / Unknown 11/18/2023 10:26 AM CDT 11/18/2023 10:26 AM CDT us Kacy Reyes MD LAB - URINE ORDERABLES Fi nal Result [facility] [address] [facility], [address] [place] [address] * (ABNORMAL) Basic metabolic panel (Ca, Cl, CO2, Creat, Gluc, K, Na, BUN) (11/18/2023 10:07 AM CDT) [facility] Sodium 142 135 - 145 mmol/L [...] 11/18/2023 10:07 AM CDT Sanjay Mchugh APRN SHIP CAPTAIN LAB - BLOOD ORDERABLES Ena l Result [facility] [place] [facility] [address] [facility], [address] [place] [address] * MA SCREENING DIGITAL BILAT - Future [...] STOOLS ORDERABLE S Final Result U [facility]AT[facility] [address] [facility] [address], [address] [place] [address] [phone] * Hepatitis C Screen Reflex to HCV RNA Quant and Genotype (05/14/2018 9:50 AM CDT) Hepatitis C Antibody Nonreactive NR^Nonre active 05/15/2018 12:15 PM CDT [facility] Comment: Assay performance characteristics have not been established for newborns, infants, and children Blood specimen (specimen) 05/14/2018 9:50 AM CDT 05/14/2018 9:51 AM CDT Morris Monreal MD LAB - BLOOD ORDERABLES Final Result [facility] [address] [place] [address] * HIV Antigen Antibody Combo (12/29/2017 11:16 AM CDT) HIV Antigen Antibody Combo Nonreactive NR^Nonrea ctive 12/30/2017 10:10 AM CDT [facility] Comment:HIV-1 p24 Ag & HIV-1 /HIV-2 Ab Not Detected Blood specimen (specimen) 12/29/2017 11:16 AM CDT 12/29/2017 11:17 AM CDT Morris Monreal MD LAB - BLOOD ORDERABLES Final Result [facility] [address] from Last 3 Months or Most Recently Relevant to Health Maintenance Insurance BCBS OUT OF STATE BCBS OUT OF [facility] Advance Directives For more information, please contact: [phone] * Full Code (Latest Code Status on File) Date Activated Date Inactivated Comments 12/14/2019 12:33 PM 12/29/2019 12:59 PM Question Answer Comments Code status determined by: Discussion with patie nt/legal decision maker * Full Code Date Activated Date Inactivated Comments 12/13/2019 2:40 PM 12/14/2019 12:33 PM Question Answer Comments Code status determined by: Discussion with patie nt/legal decision maker Care Teams Safety Relief Valve Technician Relationship Specialty Start Date End Date David Lau PA-C [address] [place] [address] PCP - General Family Medicine 06/03/24 Kacy Reyes MD [address] [place] [address] Assigned Endocrinology Provider 12/10/23 [place] [address] [place] [address] Assigned PCP 01/10/24
--- OUTSIDE RECORDS SUMMARY | 2024-06-20 21:59 | XMS_ITS | Encounter Summary ---
Author Organization [place] Address [facility] [place] [address] Care Team Providers Care Dietitian Chief Name Role Phone Kacy Reyes MD Unavailable [phone] Tru Dasilva MD Unavailable David Lau PA-C Primary Care Provider Reason for Visit * Reason Onset Date Comments Refill Request 06/07/2024 Softclix lancets Encounter Details Date Type Department Care Team (Late st Contact Info) Description 06/07/2024 Telephone [facility] [address] [place] [address] Kacy Reyes MD [address] [place] [address] Refill Request (Softclix lancets) Social [...] re latives? Once a week 12/24/2023 Attends [employer] Services Not on file 12/23 Active Member of Clubs or Organizations Not on f ile 12/24/2023 Attends Club or Organization Meetings Not on rachele e 12/24/2023 Marital Status Not on file 12/24/2023 PHQ-2 Answer Date Recorded PHQ-2 Score 0 12/24/2023 [facility]ational Stress Questionnaire Answer Date [...] on file Legal Sex Female 3:19 AM PHOTOGRAPHER'S ASSISTANT Gender Identity Not on file Sexual Orientation Not on file Occupation Industry Job Start Date Job End Date Not on file Not on file Not on file Not on file documented as of this encounter Miscellaneous Notes * Telephone Encounter - Elizabeth Alexandre RN - 06/07/2024 11:31 AM PHOTOGRAPHER'S ASSISTANT Requested Prescriptions Signed Prescriptions Disp Refills blood glucose (NO BRAND SPECIFIED) lancets standard 300 each 1 Sig: Use to test blood sugar 3 times daily. There is no refill protocol information for this order OGRAPHER'S ASSISTANT * Telephone Encounter - Kacy Reyes MD - 06/07/2024 11:28 AM PHOTOGRAPHER'S ASSISTANT Endo staff- can you please take a look into this? Thank you. OGRAPHER'S ASSISTANT * Telephone Encounter - Matheus Arambula - 06/07/2024 9:47 AM CST Patient has requested a refill for Lancets, but no prescription is in [facility] or [facility] If a new Rx could be written we would appreciate it. Thank you, Matheus Arambula [facility] OGRAPHER'S ASSISTANT documented in this encounter Plan of Treatment Upcoming Encounters Date Type Department Care Team (Latest Contact Info) Description 06/24/2024 8:30 AM PHOTOGRAPHER'S ASSISTANT Office Visit [facility] [address] [place] [address] [place] [address] [place] [address] 07/29/2024 10:45 AM PHOTOGRAPHER'S ASSISTANT Ancillary Procedure [facility] [address] [place] [phone] David Lau PA-C [address] [place] [address] Visit for screening mammogram 10/31/2024 3:00 PM CDT Office Visit [facility] [address] [place] [phone] Kayce Jasso PA-C 500 [place] [address] 01/02/2025 10:00 AM CDT Office Visit [facility] [address] [place] [address] David Lau PA-C [address] [facility] [place] [address] 05/03/2025 1:00 PM CDT Office Visit [facility] [address] [facility] [address] [place] [phone] Kacy Reyes MD [address] [place] [address] 866910 documented as of this encounter Visit Diagnoses Diagnosis Type 2 diabetes mellitus with stage 1 chronic kidney disease, without long-term current use of insulin (H)- Primary Visit for screening mammogram Other screening mammogram documented in this encounter Care Teams Dietitian Chief Relationship Specialty Start Date End Date David Lau PA-C [address] [facility] [address] PCP - General Family Medicine 06/03/24 Kacy Reyes MD [address] [place] [address] 200 [place], [place] 721170 Assigned Endocrinology Provider 12/10/23 [place] [address] [place] [address] Assigned PCP 01/10/24 documented as of this encounter
--- OUTSIDE RECORDS SUMMARY | 2024-06-20 21:59 | XMS_ITS | Encounter Summary ---
Author Organization [place] Address [facility] [place] [address] Care Team Providers Care Java Web Application Developer Name Role Phone Kacy Reyes MD Unavailable [phone] Tru Dasilva MD Primary Care Provider [phone] Tru Dasilva MD Unavailable Encounter Details Date [...] re latives? Once a week 12/24/2023 Attends [employer] Services Not on file 12/23 Active Member of Clubs or Organizations Not on f ile 12/24/2023 Attends Club or Organization Meetings Not on rachele e 12/24/2023 Marital Status Not on file 12/24/2023 PHQ-2 Answer Date Recorded PHQ-2 Score 0 12/24/2023 [facility] Occupat ional Health - Occupational Stress [...] in an abandoned building, in an overnight fpc, or couch-surfing.) Yes 12/24/2023 Are you worried [...] on file Legal Sex Female 3:19 AM BUSINESS EDUCATION PROFESSOR Gender Identity Not on file Sexual Orientation Not on file Occupation Industry Job Start Date Job End Date Not on file Not on file Not on file Not on file documented as of this encounter Plan of Treatment Upcoming Encounters Date Type Department Care Team (Latest Contact Info) Description 06/24/2024 8:30 AM BUSINESS EDUCATION PROFESSOR Office Visit [facility] [address] [place] [phone] [place] [address] [place] [address] [id number] 07/29/2024 10:45 AM BUSINESS EDUCATION PROFESSOR Ancillary Procedure [facility] [address] [place] [phone] David Lau PA-C [address] [place], [place] 9448768 Visit for screening mammogram 10/31/2024 3:00 PM CDT Office Visit [place] [address] [facility] [facility] [address] [place] [phone] Kayce Jasso PA-C 500 [place], [place] [address] 01/02/2025 10:00 AM CDT Office Visit [facility] [address] [place] [phone] David Lau PA-C [address] [place], [place] 97460[address] 05/03/2025 1:00 PM CDT Office Visit [place] [address] [address] [facility] 200 [place] [phone] Kacy Reyes MD [address] [place] [address] 948940 documented as of this encounter Visit Diagnoses Not on filedocumented in this encounter Care Teams Java Web Application Developer Relationship Specialty [place] [address] [place] [address] PCP - General Family Medicine 12/18/23 06/02/24 Kacy Reyes MD [address] 200 [place], [place] [phone] Assigned Endocrinology Provider 12/10/23 [place] [address] [place] [address] Assigned PCP 01/10/24 documented as of this encounter
--- OUTSIDE RECORDS SUMMARY | 2024-06-20 21:59 | XMS_ITS | Encounter Summary ---
Author Organization [place] Address [facility] [place] [address] Care Team Providers Care Salvager Helper Name Role Phone Kacy Reyes MD Unavailable [phone] Kali Ventura PA-C Primary Care Provider Kali Ventura PA-C Unavailable [phone] Kizzy Davenport OD Unavailable Ricky Ramirez MD Unavailable Jamar Walter PA-C Unavailable Kali Ventura PA-C Unavailable Kacy Reyes MD Unavailable [phone] Tru Dasilva MD Primary Care Provider Tru Dasilva MD Unavailable David Lau PA-C Primary Care Provider Reason for Visit * Reason Comments Refill Request metFORMIN (GLUCOPHAG E) 1000 MG tablet 60 tablet 0 04/03/2023 Encounter Details Date Type Department Care Team (Late st Contact Info) Description 04/28/[address] [address] Jamar Walter PA-C 500 [place] [address] Refill Request (metFORMIN (GLUCOPHAGE) 1000 MG tablet [...] on file Legal Sex Female 3:19 AM WARP COILER Gender Identity Not on file Sexual Orientation [...] has a new provider. Aminata hernandez Procedure [facility] Orthopedics, Podiatry, Sports Medicine, Ent ,Eye , Audiology, Adult Endocrine & Diabetes, Nutrition & Medication Therapy Management Specialties [facility] * Telephone Encounter - Aminata Zuñiga - 05/11/2023 9:15 AM CDT 05/11 Called and left voicemail, provided phone number [phone] to schedule follow up appointment with jamar walter. Aminata hernandez Procedure [facility] Orthopedics, Podiatry, Sports Medicine, Ent ,Eye , Audiology, Adult Endocrine & Diabetes, Nutrition & Medication Therapy Management Specialties [facility] * Telephone Encounter - Norma Ruelas RN [...] Called and left voicemail, provided phone number [phone] to schedule lab and follow up appointment with jamar walter. Aminata hernandez Procedure [facility] Orthopedics, Podiatry, Sports Medicine, Ent ,Eye , Audiology, Adult Endocrine & Diabetes, Nutrition & Medication Therapy Management Specialties [facility] * Telephone Encounter - Jamar Walter PA-C [...] 01/15/23 Future Office visit: none Biguanide Agents [id number]/28/2023 01:07 PM Protocol Details Patient's CR is [...] (Latest Contact Info) Description 06/24/2024 8:30 AM WARP COILER Office Visit [facility] [address] [place] [address] [place] [address] [place] [address] 07/29/2024 10:45 AM WARP COILER Ancillary Procedure [facility] [address] [place] [phone] David Lau PA-C [address] [place], [place] [phone] Visit for screening mammogram 10/31/2024 3:00 PM CDT Office Visit [facility] [address] [place] [phone] Jamar Walter PA-C 500 [place], [place] [address] 01/02/2025 10:00 AM CDT Office Visit [facility] [address] [place] [phone] David Lau PA-C [address] [place], [place] 6831768 05/03/2025 1:00 PM CDT Office Visit [facility] [address] [facility] [facility] [address] [place] [phone] Kacy Reyes MD [address] [phone] documented as of this encounter Visit Diagnoses Diagnosis Type 2 diabetes mellitus with stage 1 chronic kidney disease, without long-term current use of insulin (H) Visit for screening mammogram Other screening mammogram documented in this encounter Care Teams Salvager Helper Relationship Specialty Start Date End Date Kali Ventura PA-C [address] [place] [address] PCP - General Family Medicine 11/18/21 12/17/23 [place] [address] [place] [address] PCP - General Family Medicine 12/18/23 06/02/24 David Lau PA-C [address] [place] [address] PCP - General Family Medicine 06/03/24 Kacy Reyes MD [address] [place] [address] Assigned Endocrinology Provider 08/12/20 07/31/23 Kali Ventura PA-C [address] [place], [place] [phone] Assigned PCP 01/18/22 07/10/23 Kizzy Davenport OD [address] [place] [address] Assigned Surgical Provider 09/20/22 Ricky Ramirez MD 1390 [place] [address] Assigned PCP 07/11/23 12/09/23 Jamar Walter PA-C 500 [place] [address] Assigned Endocrinology Provider 08/21/23 12/09/23 Kali Ventura PA-C [address] [place] [address] Assigned PCP 12/10/23 01/09/24 Kacy Reyes MD [address] [place] [address] 200 [place] [address] Assigned Endocrinology Provider 12/10/23 [place] [address] [place], [place] [phone] Assigned PCP 01/10/24 documented as of this encounter
--- OUTSIDE RECORDS SUMMARY | 2024-06-20 21:59 | XMS_ITS | Encounter Summary ---
Author Organization [place] Address [facility] [place] [address] Care Team Providers Care Traffic Court Referee Name Role Phone Kacy Reyes MD Unavailable [phone] Tru Dasilva MD Primary Care Provider [phone] Tru Dasilva MD Unavailable Reason for Visit * Reason Comments Medication Refill Encounter Details Date Type Department Care Team (Late st Contact Info) Description 04/14/2024 Refill [facility] [address] [place] [address] Kacy Reyes MD [address] [place] [address] Medication Refill Social History Tobacco [...] Answer Date Recorded PHQ-2 Score 0 12/24/2023 [facility] of Occupat ional Health - Occupational Stress [...] on file Legal Sex Female 3:19 AM PUBLISHING SPECIALIST Gender Identity Not on file Sexual [...] (Latest Contact Info) Description 06/24/2024 8:30 AM PUBLISHING SPECIALIST Office Visit [facility] [address] [place] [phone] Tru Dasilva MD [address] [place] [address] 07/29/2024 10:45 AM PUBLISHING SPECIALIST Ancillary Procedure [facility] [address] [place] [address] David Lau PA-C [address] [place] [address] Visit for screening mammogram 10/31/2024 3:00 PM CDT Office Visit [facility] [address] [place] [phone] Kayce Jasso PA-C 500 [place] [address] 01/02/2025 10:00 AM CDT Office Visit [facility] [address] [facility] [place] [address] David Lau PA-C [address] [place] [address] 05/03/2025 1:00 PM CDT Office Visit [facility] [address] [place] [phone] Kacy Reyes MD [address] [place] [address] documented as of this encounter Visit Diagnoses Diagnosis Type 2 diabetes mellitus with stage 1 chronic kidney disease, without long-term current use of insulin (H) Visit for screening mammogram Other screening mammogram documented in this encounter Care Teams Traffic Court Referee Relationship Specialty [place] [address] [place] [address] PCP - General Family Medicine 12/18/23 06/02/24 Kacy Reyes MD [address] [facility] 200 [place], [place] 97[address]30 Assigned Endocrinology Provider 12/10/23 [place] [address] [place] [address] Assigned PCP 01/10/24 documented as of this encounter
--- OUTSIDE RECORDS SUMMARY | 2024-06-20 21:59 | XMS_ITS | Encounter Summary ---
Author Organization [place] Address [address] [place] [address]. [place] [address] Care Team Providers Care Foil Spooler Name Role Phone Kacy Reyes MD Unavailable [phone] Valentino William PA-C Unavailable Kizzy Davenport OD Unavailable Kali Ventura PA-C Primary Care Provider Kali Ventura PA-C Unavailable [phone] Kizzy Davenport OD Unavailable [phone] Ricky Ramirez MD Unavailable [phone] Kayce Jasso PA-C Unavailable Kali Ventura PA-C Unavailable [phone] Kacy Reyes MD Unavailable [phone] Tru Dasilva MD Primary Care Provider [phone] Tru Dasilva MD Unavailable David Lau PA-C Primary Care Provider Reason for Visit * Reason Comments Medication Refill Encounter Details Date Type Department Care Team (Late st Contact Info) Description 05/13/[address] [place] [address] Kali Ventura PA-C [address] [place] [address] Medication Refill Social History Tobacco Use Types Packs/Day Years Used Date Smoking Tobacco: Never Smokeless Tobacco: Never Alcohol Use Standard Drinks/Week Comments Yes 0 (1 standard drink = 0.6 oz pur e alcohol) wine PHQ-2 Answer Date Recorded PHQ-2 Score 0 05/16/2022 Comments No Sex and Gender Information Value Date Recorded Sex Assigned at Not on file Legal Sex Female 3:19 AM DIRECTOR OUTPATIENT SERVICES Gender Identity Not on file Sexual Orientation [...] to call pt Linda Marie, RN, BSN [facility] * Telephone Encounter - Kali Ventura PA-C [...] (Latest Contact Info) Description 06/24/2024 8:30 AM DIRECTOR OUTPATIENT SERVICES Office Visit [facility] [address] [place] [phone] [place] [address] [place] [address] 07/29/2024 10:45 AM DIRECTOR OUTPATIENT SERVICES Ancillary Procedure [facility] [address] [place] [phone] David Lau PA-C [address] [place], [place] [phone] Visit for screening mammogram 10/31/2024 3:00 PM CDT Office Visit [facility] [address] [place] [address] [place] [address] Kayce Jasso PA-C 500 [place] [address] 01/02/2025 10:00 AM CDT Office Visit [facility] [address] [place] [address] David Lau PA-C [address] [facility] [place], [place] [address] 05/03/2025 1:00 PM CDT Office Visit [facility] [address] [place] [phone] Kacy Reyes MD [address] [place] [address] documented as of this encounter Visit Diagnoses Diagnosis Monilia infection Candidiasis of unspecified site Visit for screening mammogram Other screening mammogram documented in this encounter Additional Health Concerns Infection Onset Date Last Indicated Resolved Time Rule Out C-difficile 01/21/2023 01/22/2023 023 2:33 PM CDT documented as of this encounter Care Teams Foil Spooler Relationship Specialty Start Date End Date Kali Ventura PA-C [address] [place] [address] PCP - General Family Medicine 11/18/21 12/17/23 [place] [address] [place] [address] PCP - General Family Medicine 12/18/23 06/02/24 David Lau PA-C [address] [facility] [place] [address] PCP - General Family Medicine 06/03/24 Kacy Reyes MD [address] [place] [address] Assigned Endocrinology Provider 08/12/20 07/31/23 Valentino William PA-C [address] [facility] 300 [place] [address] Assigned Musculoskeletal Provider 11/25/20 06/20/22 Kizzy Davenport, OD [address] [facility] [place] [address] Assigned Surgical Provider 06/09/2108/22/22 Kali Ventura PA-C [address] [place] [address] Assigned PCP 01/18/22 07/10/23 Kizzy Davenport, OD [address] [place] [address] [place] [address] Assigned Surgical Provider 09/20/22 Ricky Ramirez MD 1390 [place] [address] Assigned PCP 07/11/23 12/09/23 Kayce Jasso PA-C 500 [place] [address] Assigned Endocrinology Provider 08/21/23 12/09/23 Kali Ventura PA-C [address] [place] [address] Assigned PCP 12/10/23 01/09/24 aKcy Reyes MD [address] [place] [address] Assigned Endocrinology Provider 12/10/23 [place] [address] [place] [address] Assigned PCP 01/10/24 documented as of this encounter
--- OUTSIDE RECORDS SUMMARY | 2024-06-20 21:59 | XMS_ITS | Encounter Summary ---
Author Organization [place] Address [facility] [place] [address] Care Team Providers Care Para Operator Name Role Phone Morris Monreal MD Primary Care Provider Unavailable Kacy Reyes MD Unavailable [phone] Valentino William-C Unavailable Kizzy Davenport OD Unavailable Carlo Bonilla MD Unavailable [phone] Kali Ventura PA-C Primary Care Provider Kali VenturaC Unavailable [phone] Kizzy Davenport OD Unavailable Ricky Ramirez MD Unavailable [phone] Kayce JassoC Unavailable Kali Ventura PA-C Unavailable Kacy Reyes MD Unavailable [phone] Tru Dasilva MD Primary Care Provider [phone] rTu Dasilva MD Unavailable David Lau PA-C Primary Care Provider Reason for Visit * Reason Comments Medication Refill Encounter Details Date Type Department Care Team (Late st Contact Info) Description 11/05/2021 Refill [facility] [address] [place] [phone] Morris Monreal MD Medication Refill Social History [...] on file Legal Sex Female 3:19 AM SHEET METAL DUCT INSTALLER APPRENTICE Gender Identity Not on file Sexual Orientation [...] (Latest Contact Info) Description 06/24/2024 8:30 AM SHEET METAL DUCT INSTALLER APPRENTICE Office Visit [facility] [address] [place] [phone] [place] [address] [place], [place] [phone] 07/29/2024 10:45 AM SHEET METAL DUCT INSTALLER APPRENTICE Ancillary Procedure [facility] [address] [place] [address] David Lau PA-C [address] [place], [place] 5041168 Visit for screening mammogram 10/31/2024 3:00 PM CDT Office Visit [facility] [address] [place] [phone] Kayce Jasso PA-C 500 [place] [address] 01/02/2025 10:00 AM CDT Office Visit [facility] [address] [place] [phone] David Lau PA-C [address] [place], [place] 77932[address] 05/03/2025 1:00 PM CDT Office Visit [facility] [address] [place] [phone] Kacy Reyes MD [address] [place] [address] 200 [place], [place] 636050 documented as of this encounter Visit Diagnoses Not on filedocumented in this encounter Additional Health Concerns Infection Onset Date Last Indicated Resolved Time Rule Out C-difficile 01/21/2023 01/22/2023 023 2:33 PM CDT documented as of this encounter Care Teams Para Operator Relationship Specialty Start Date End Date Morris Monreal MD PCP - General 04/21/02 11/17/21 Kali Ventura PA-C [address] [place] [address] PCP - General Family Medicine 11/18/21 12/17/23 [place] [address] [place] [address] PCP - General Family Medicine 12/18/23 06/02/24 David Lau PA-C [address] [place] [address] PCP - General Family Medicine 06/03/24 Kacy Reyes MD [address] [place] [address] 200 [place], [place] 3[address]90 Assigned Endocrinology Provider 08/12/20 07/31/23 Valentino William PA-C [address] [facility] [address] [place] [address] Assigned Musculoskeletal Provider 11/25/20 06/20/22 Kizzy Davenport OD [address] [place] [address] [place] [address] Assigned Surgical Provider 06/09/2108/22/22 Carlo Bonilla MD [address] [facility] [place] [address] Assigned PCP 10/06/21 01/17/22 Kali Ventura PA-C [address] [place] [address] Assigned PCP 01/18/22 07/10/23 Kizzy Davenport OD [address] [facility] [place] [address] Assigned Surgical Provider 09/20/22 Ricky Ramirez MD 1390 [place] [address] Assigned PCP 07/11/23 12/09/23 Kayce Jasso PA-C 500 [place] [address] Assigned Endocrinology Provider 08/21/23 12/09/23 Kali Ventura PA-C [address] [place] [address] [id number] Assigned PCP 12/10/23 01/09/24 Kacy Reyes MD [address] 200 [place] [address] Assigned Endocrinology Provider 12/10/23 [place] [address] [place], [place] [address] Assigned PCP 01/10/24 documented as of this encounter
--- OUTSIDE RECORDS SUMMARY | 2024-06-20 21:59 | XMS_ITS | Encounter Summary ---
Author Organization Issue Address [address] [place] [address]. [place] [address] Care Team Providers Care Ground Support Equipment Fitter Name Role Phone Kacy Reyes MD Unavailable [phone] Kali Ventura PA-C Primary Care Provider Kali Ventura PA-C Unavailable Kizzy Davenport OD Unavailable [phone] Ricky Ramirez MD Unavailable [phone] Kayce Jasso PA-C Unavailable Kali Ventura PA-C Unavailable [phone] Kacy Reyes MD Unavailable [phone] Tru Dasilva MD Primary Care Provider [phone] Tru Dasilva MD Unavailable David Lau PA-C Primary Care Provider Reason for Visit * Reason Comments Medication Refill Encounter Details Date Type Department Care Team (Late st Contact Info) Description 12/30/2022 [facility] [address] [place] [phone] Emily Serrato PA-C [address] [place] [address] Medication Refill Social History Tobacco Use Types Packs/Day Years Used Date Smoking Tobacco: Never Smokeless Tobacco: Never Alcohol Use Standard Drinks/Week Comments Yes 0 (1 standard drink = 0.6 oz pur e alcohol) wine PHQ-2 Answer Date Recorded PHQ-2 Score 0 10/31/2022 Comments No Sex and Gender Information Value Date Recorded Sex Assigned at Not on file Legal Sex Female 3:19 AM SCHOOL SUPERINTENDENT Gender Identity Not on file Sexual Orientation [...] (Latest Contact Info) Description 06/24/2024 8:30 AM SCHOOL SUPERINTENDENT Office Visit [facility] [address] [place] [address] [place] [address] [place] [address] 07/29/2024 10:45 AM SCHOOL SUPERINTENDENT Ancillary Procedure [facility] [address] [place] [address] David Lau PA-C [address] [place], [place] [address] Visit for screening mammogram 10/31/2024 3:00 PM CDT Office Visit [facility] [address] [place] [phone] Kayce Jasso PA-C 500 [place] [address] 01/02/2025 10:00 AM CDT Office Visit [facility] [address] [place] [address] David Lau PA-C [address] [facility] [place] [address] 05/03/2025 1:00 PM CDT Office Visit [facility] [address] [place] [address] Kacy Reyes MD [address] [place], [place] [address] documented as of this encounter Visit Diagnoses Diagnosis Nasal congestion Other diseases of nasal cavity and sinuses Seasonal allergic rhinitis due to other allergic trigger Visit for screening mammogram Other screening mammogram documented in this encounter Additional Health Concerns Infection Onset Date Last Indicated Resolved Time Rule Out C-difficile 01/21/2023 01/22/2023 023 2:33 PM CDT documented as of this encounter Care Teams Ground Support Equipment Fitter Relationship Specialty Start Date End Date Kali Ventura PA-C [address] [place] [address] PCP - General Family Medicine 11/18/21 12/17/23 [place] [address] [place] [address] PCP - General Family Medicine 12/18/23 06/02/24 David Lau PA-C [address] [place] [address] PCP - General Family Medicine 06/03/24 Kacy Reyes MD [address] [place], [place] [address] Assigned Endocrinology Provider 08/12/20 07/31/23 Kali Ventura PA-C [address] [place] [address] Assigned PCP 01/18/22 07/10/23 [place]iz[place] Davenport OD [address] [place] [address] Assigned Surgical Provider 09/20/22 Ricky Ramirez MD 1390 [place] [address] Assigned PCP 07/11/23 12/09/23 Kayce Jasso PA-C 500 [place] [address] Assigned Endocrinology Provider 08/21/23 12/09/23 Kali Ventura PA-C [address] [place] [address] Assigned PCP 12/10/23 01/09/24 Kacy Reyes MD [address] 200 [place] [address] Assigned Endocrinology Provider 12/10/23 [place] [address] [place] [address] Assigned PCP 01/10/24 documented as of this encounter
--- OUTSIDE RECORDS SUMMARY | 2024-06-20 21:59 | XMS_ITS | Encounter Summary ---
Author Organization [place] Address [facility] [place] [address] Care Team Providers Care Quality Control Scientist Name Role Phone Kizzy Davenport OD Unavailable Kali Berger PA-C Unavailable Kacy Reyes MD Unavailable [phone] Tru Dasilva MD Primary Care Provider [phone] Tru Dasilva MD Unavailable David Lau PA-C Primary Care Provider Reason for Visit * Reason Comments Medication Refill Encounter Details Date Type Department Care Team (Late st Contact Info) Description 12/18/[address] [address] Kali Berger PA-C [address] [place] [address] Medication Refill Social History Tobacco Use [...] on file Legal Sex Female 3:19 AM RADIOLOGY TECHNOLOGIST Gender Identity Not on file Sexual Orientation [...] (Latest Contact Info) Description 06/24/2024 8:30 AM RADIOLOGY TECHNOLOGIST Office Visit [facility] [address] [place] [address] [place] [address] [place] [address] 07/29/2024 10:45 AM RADIOLOGY TECHNOLOGIST Ancillary Procedure [facility] [address] [place] [phone] David Lau PA-C [address] [place] [address] Visit for screening mammogram 10/31/2024 3:00 PM CDT Office Visit [facility] [address] [place] [address] Kayce Jasso PA-C 500 [place] [address] 01/02/2025 10:00 AM CDT Office Visit [facility] [address] [place] [phone] David Lau PA-C [address] [place] [address] 05/03/2025 1:00 PM CDT Office Visit [facility] [address] [facility] [address] [place] [address] Kacy Reyes MD [address] [place] [address] [address] [place], [place] [address] documented as of this encounter Visit Diagnoses Diagnosis Monilia infection Candidiasis of unspecified site Visit for screening mammogram Other screening mammogram documented in this encounter Care Teams Quality Control Scientist Relationship Specialty [place] [address] [place] [address] PCP - General Family Medicine 12/18/23 06/02/24 David Lau PA-C [address] [place] [address] PCP - General Family Medicine 06/03/24 Kizzy Davenport OD [address] [place] [address] Assigned Surgical Provider 09/20/22 Kali Berger PA-C [address] [place] [address] Assigned PCP 12/10/23 01/09/24 Kacy Reyes MD [address] [facility] 200 [place] [address] Assigned Endocrinology Provider 12/10/23 [place] [address] [place] [address] Assigned PCP 01/10/24 documented as of this encounter
--- OUTSIDE RECORDS SUMMARY | 2024-06-20 22:00 | XMS_ITS | Encounter Summary ---
Author Organization [place] Address [facility] [place] [address] Care Team Providers Care Director Money Name Role Phone Morris Monreal MD Primary Care Provider Unavailable Morris Monreal MD Unavailable UnaMorris Lugo MD Unavailable Unavai Ricky Antony MD Unavailable Kacy Reyes MD Unavailable [phone] Yohana Briggs APRN COOK CANDY Unavailable Chris Lemon MD Unavailable Morris Monreal MD Unavailable UnaValentino Vásquez-C Unavailable Kizzy Davenport OD Unavailable [phone] Carlo Bonilla MD Unavailable [phone] Kali Ventura PA-C Primary Care Provider Kali Ventura PA-C Unavailable Kizzy Davenport OD Unavailable Ricky Ramirez MD Unavailable Kayce Jasso-C Unavailable Kali Ventura PA-C Unavailable Kacy Reyes MD Unavailable [phone] Tru Dasilva MD Primary Care Provider [phone] Tru Dasilva MD Unavailable David Lau PA-C Primary Care Provider Reason for Visit * Reason Onset Date Comments Refill Request 08/21/2016 Vitamin D 50,000 unit Encounter Details Date Type Department Care Team (Late st Contact Info) Description 08/21/[address] [phone] Morris Monreal MD Refill Request (Vitamin D 50,000 unit) Social History Tobacco Use Types Packs/Day Years Used Date Smoking Tobacco: Never Smokeless Tobacco: Never Alcohol Use Standard Drinks/Week Comments Yes 0 (1 standard drink = 0.6 oz pur e alcohol) wine Comments No Sex and Gender Information Value Date Recorded Sex Assigned at Not on file Legal Sex Female 3:19 AM JAMMER HOOKER Gender Identity Not on file Sexual Orientation [...] protocol or controlled substance Joy Montoya CPhT [facility] On behalf of [facility] ER HOOKER documented in this encounter Plan of Treatment Upcoming Encounters Date Type Department Care Team (Latest Contact Info) Description 06/24/2024 8:30 AM JAMMER HOOKER Office Visit [address] [place] [address] [place] [address] [place] [address] 07/29/2024 10:45 AM JAMMER HOOKER Ancillary Procedure [facility] [address] [place] [address] David Lau PA-C [address] [place] [address] Visit for screening mammogram 10/31/2024 3:00 PM CDT Office Visit [place] [address] [facility] 200 [place] [phone] Kayce Jasso PA-C 500 [place], [place] [address] 01/02/2025 10:00 AM CDT Office Visit [facility] [address] [place] [phone] David Lau PA-C [address] [place] [address] 05/03/2025 1:00 PM CDT Office Visit [place] [address] [address] [facility] [address] [place] [phone] Kacy Reyes MD [address] [place] [address] 200 [place], [place] [phone] documented as of this encounter Visit Diagnoses Diagnosis Vitamin D deficiency- Primary Unspecified vitamin D deficiency Visit for screening mammogram Other screening mammogram documented in this encounter Additional Health Concerns Infection Onset Date Last Indicated Resolved Time Rule Out COVID-19 06/19/2020 06/19/2020 06/20/2020 4:31 PM JAMMER HOOKER Rule Out COVID-19 08/08/2021 08/08/2021 08/09/2021 1:52 PM JAMMER HOOKER COVID-19 08/08/2021 08/08/2021 08/29/2021 11:3 9 PM JAMMER HOOKER Rule Out C-difficile 01/21/2023 01/22/2023 023 2:33 PM CDT documented as of this encounter Care Teams Director Money Relationship Specialty Start Date End Date Morris Monreal MD PCP - General 04/21/02 11/17/21 Morris Monreal MD PCP - Assigned PCP 05/17/08 09/21/18 Kali Ventura PA-C [address] [place] [address] PCP - General Family Medicine 11/18/21 12/17/23 [place] [address] [place] [address] PCP - General Family Medicine 12/18/23 06/02/24 David Lau PA-C [address] [place] [address] PCP - General Family Medicine 06/03/24 Morris Monreal MD Assigned PCP 04/22/12 09/22/20 Ricky Stanley MD 6363 [facility] 500 [place] [phone] Assigned Surgical Provider 05/11/20 Kacy Reyes MD [address] [facility] 200 [place], [place] [address] Assigned Endocrinology Provider 08/12/20 07/31/23 Yohana Briggs APRN CNP [address] [place] [address] Assigned PCP 09/23/20 10/20/20 [place] [address] [facility] 300 [place] [address] Assigned Musculoskeletal Provider 10/28/20 11/24/20 Morris Monreal MD Assigned PCP 10/21/20 10/05/21 Valentino William PA-C [address] [facility] 300 [place] [address] Assigned Musculoskeletal Provider 11/25/20 06/20/22 Kizzy Davenport OD [address] [facility] [place] [address] Assigned Surgical Provider 06/09/2108/22/22 Carlo Bonilla MD [address] [place] [address] Assigned PCP 10/06/21 01/17/22 Kali Ventura PA-C [address] [place] [address] Assigned PCP 01/18/22 07/10/23 Kizzy Davenport OD [address] [facility] [place] [address] Assigned Surgical Provider 09/20/22 Ricky Ramirez MD 1390 [place] [address] Assigned PCP 07/11/23 12/09/23 Kayce Jasso PA-C 500 [place] [address] Assigned Endocrinology Provider 08/21/23 12/09/23 Kali Ventura PA-C [address] [place] [address] Assigned PCP 12/10/23 01/09/24 Kacy Reyes MD [address] 200 [place] [address] Assigned Endocrinology Provider 12/10/23 [place] [address] [place] [address] Assigned PCP 01/10/24 documented as of this encounter
--- OUTSIDE RECORDS SUMMARY | 2024-06-20 22:00 | XMS_ITS | Encounter Summary ---
Author Organization [place] Address [facility] [address] Care Team Providers Care Vegetable Farmworker Name Role Phone Morris Monreal MD Primary Care Provider Unavailable Ricky Stanley MD Unavailable [phone] Kacy Reyes MD Unavailable [phone] Morris Monreal MD Unavailable Valentino Costa-C Unavailable [phone] Kizzy Davenport OD Unavailable Carlo Bonilla MD Unavailable [phone] Kali Ventura PA-C Primary Care Provider Kali Ventura PA-C Unavailable Kizzy Davenport OD Unavailable Ricky Ramirez MD Unavailable [phone] Kayce Jasso-Bruno Unavailable Kali Ventura PA-C Unavailable [phone] Kacy Reyes MD Unavailable [phone] Tru Dasilva MD Primary Care Provider [phone] Tru Dasilva MD Unavailable Reason for Visit * Reason Onset Date Comments Prior Auth - Medication 04/30/2021 (RENEWAL ) - TRULICITY 1.5 MG/0.5ML pen- APPROVED Encounter Details Date Type Department Care Team (Late st Contact Info) Description 04/30/2021 Telephone [facility] Endocrinology [address] [place] [address] Frederick Abarca MD NO INFO [...] re latives? Once a week 12/24/2023 Attends Rastafarian Services Not on file 12/23 Active Member of Clubs or Organizations Not on f ile 12/24/2023 Attends Club or Organization Meetings Not on rachele e 12/24/2023 Marital Status Not on file 12/24/2023 PHQ-2 Answer Date Recorded PHQ-2 Score 0 12/24/2023 [facility] - [...] in an abandoned building, in an overnight snf, or couch-surfing.) Yes 12/24/2023 Are you worried [...] on file Legal Sex Female 3:19 AM CONSULTING NURSE Gender Identity Not on file Sexual Orientation [...] APPROVED Approved Dose/Quantity: 2 ML Reference #: [id number] Insurance Company: [employer] - Expected CoPay: CoPay Card Available: Foundation Assistance Needed: Which Pharmacy is filling the prescription (Not needed for infusion/clinic administered): [facility] [place], [place] - [address] [facility] Pharmacy Notified: Yes but refill too soon Patient Notified: No Central Prior Authorization Team * Telephone Encounter - Rosanna Hogan - 05/02/2021 10:47 AM CDT Images from the original note were not included. PA Initiation Medication: (RENEWAL) - TRULICITY 1.5 MG/0.5ML pen- INITIATED Insurance Company: [employer] - Pharmacy Filling the Rx: [facility] [place], [place] - [address] [facility] Filling Pharmacy Filling Pharmacy Start Date: 05/02/2021 * Telephone Encounter - Sarah Salvador - 04/30/2021 10:19 AM CDT Images from the original note were not included. Prior Authorization Retail Medication Request Medication/Dose: (RENEWAL) - TRULICITY 1.5 MG/0.5ML pen ICD code (if different than what is on RX): Type 2 diabetes mellitus without retinopathy (H) [E11.9] Previously Tried and Failed: Rationale: Insurance Name: [employer] Pharmacy Information (if different than what is on RX) Name: [place], [place] - [address] [facility] documented in this encounter Plan of Treatment Upcoming Encounters Date Type Department Care Team (Latest Contact Info) Description 06/24/2024 8:30 AM CONSULTING NURSE Office Visit [address] [address] [place] [address] [place] [address] 07/29/2024 10:45 AM CONSULTING NURSE Ancillary Procedure [facility] [address] [place] [phone] David Lau PA-C [address] [place], [place] [address] Visit for screening mammogram 10/31/2024 3:00 PM CDT Office Visit [place] [address] [address] [facility] 200 [place] [phone] Kayce Jasso PA-C 500 [place], [place] [address] 01/02/2025 10:00 AM CDT Office Visit [facility] [address] [place] [phone] David Lau PA-C [address] [place] [address] 05/03/2025 1:00 PM CDT Office Visit [place] [address] [address] [facility] 200 [place] [phone] Kacy Reyes MD [address] [place] [address] 200 [place] [address] documented as of this encounter Visit Diagnoses Not on filedocumented in this encounter Additional Health Concerns Infection Onset Date Last Indicated Resolved Time Rule Out COVID-19 08/08/2021 08/08/2021 08/09/2021 1:52 PM CONSULTING NURSE COVID-19 08/08/2021 08/08/2021 08/29/2021 11:3 9 PM CONSULTING NURSE Rule Out C-difficile 01/21/2023 01/22/2023 023 2:33 PM CDT documented as of this encounter Care Teams Vegetable Farmworker Relationship Specialty Start Date End Date Morris Monreal MD PCP - General 04/21/02 11/17/21 Kali Ventura PA-C [address] [place] [address] PCP - General Family Medicine 11/18/21 12/17/23 [place] [address] [place] [address] PCP - General Family Medicine 12/18/23 06/02/24 Ricky Stanley MD [address] [facility] 500 [place] [phone] Assigned Surgical Provider 05/11/20 Kacy Reyes MD [address] [facility] 200 [place], [place] [address] Assigned Endocrinology Provider 08/12/20 07/31/23 Morris Monreal MD Assigned PCP 10/21/20 10/05/21 Valentino William PA-C [address] [facility] 300 [place] [address] Assigned Musculoskeletal Provider 11/25/20 06/20/22 [place] [address] [place] [address] Assigned Surgical Provider 06/09/2108/22/22 Carlo Bonilla MD [address] [place] [address] Assigned PCP 10/06/21 01/17/22 Kali Ventura PA-C [address] [place] [address] Assigned PCP 01/18/22 07/10/23 Kiz[place] Davenport OD [address] [place] [address] Assigned Surgical Provider 09/20/22 Ricky Ramirez MD 1390 [place] [address] Assigned PCP 07/11/23 12/09/23 Kayce Jasso PA-C 500 [place] [address] Assigned Endocrinology Provider 08/21/23 12/09/23 Kali Ventura PA-C [address] [place] [address] Assigned PCP 12/10/23 01/09/24 Kacy Reyes MD [address] [place] [address] 200 [place] [address] Assigned Endocrinology Provider 12/10/23 [place] [address] [place] [address] Assigned PCP 01/10/24 documented as of this encounter
--- OUTSIDE RECORDS SUMMARY | 2024-06-20 22:00 | XMS_ITS | Encounter Summary ---
Author Organization [place] Address [facility] [place] [address] Care Team Providers Care Setter Out Name Role Phone Morris Monreal MD Primary Care Provider Unavailable Morris Monreal MD Unavailable UnaMorris Lugo MD Unavailable Unavai Ricky Antony MD Unavailable Kacy Reyes MD Unavailable [phone] Yohana Briggs APRN STAVE BLOCK SPLITTER Unavailable Chris Lemon MD Unavailable [phone] Morris Monreal MD Unavailable UnaValentino Vásquez-C Unavailable Kizzy Davenport OD Unavailable Carlo Bonilla MD Unavailable Kali Ventura PA-C Primary Care Provider Kali Vetnura PA-C Unavailable Kizzy Davenport OD Unavailable Ricky Ramirez MD Unavailable Kayce Jasso-C Unavailable Kali Ventura PA-C Unavailable Kacy Reyes MD Unavailable [phone] Tru Dasilva MD Primary Care Provider [phone] Tru Dasilva MD Unavailable David Lau PA-C Primary Care Provider Reason for Visit * Reason Onset Date Comments Refill Request 09/14/2017 lisinopril (PRIN IVIL/ZESTRIL) 40 MG tablet Encounter Details Date Type Department Care Team (Late st Contact Info) Description 09/14/[address] [address] Morris Monreal MD Refill Request [...] file Legal Sex Female 3:19 AM MANAGER WOUND Gender Identity Not on file Sexual Orientation Not on file Occupation Industry Job Start Date Job End Date Not on file Not on file Not on file Not on file documented as of this encounter Miscellaneous Notes * Telephone Encounter - Bernadette Cedeno RN - 09/17/2017 10:22 AM CST Images from the original note were not included. Prescription approved per [facility] Refill Protocol. Lidia Cedeno, DAVE Patient Care Legislative Aide [facility] [place] [phone] GER WOUND * Telephone Encounter - Patricia Segovia - [...] Return Visit with Sarah Montoya APRN CNP [facility] ([facility]) [address] [facility] [phone] 90 tablet 1 Sig: TAKE ONE TABLET [...] Labs Lab Test 04/18/17 1500 POTASSIUM 3.6 GER WOUND documented in this encounter Plan of Treatment Upcoming Encounters Date Type Department Care Team (Latest Contact Info) Description 06/24/2024 8:30 AM MANAGER WOUND Office Visit [facility] [address] [place] [phone] [place] [address] [place], [place] [phone] 07/29/2024 10:45 AM MANAGER WOUND Ancillary Procedure [facility] [address] [place] [address] David Lau PA-C [address] [place], [place] 7244[address] Visit for screening mammogram 10/31/2024 3:00 PM CDT Office Visit [facility] [address] [place] [phone] Kayce Jasso PA-C 500 [place], [place] [address] 01/02/2025 10:00 AM CDT Office Visit [facility] [address] [place] [address] David Lau PA-C [address] [place], [place] [address] 05/03/2025 1:00 PM CDT Office Visit [facility] [address] [facility] [address] [place] [phone] Kacy Reyes MD [address] [place] [address] 200 [place], [place] [address] documented as of this encounter Visit Diagnoses Diagnosis Essential hypertension, benign Visit for screening mammogram Other screening mammogram documented in this encounter Additional Health Concerns Infection Onset Date Last Indicated Resolved Time Rule Out COVID-19 06/19/2020 06/19/2020 06/20/2020 4:31 PM MANAGER WOUND Rule Out COVID-19 08/08/2021 08/08/2021 08/09/2021 1:52 PM MANAGER WOUND COVID-19 08/08/2021 08/08/2021 08/29/2021 11:3 9 PM MANAGER WOUND Rule Out C-difficile 01/21/2023 01/22/2023 023 2:33 PM CDT documented as of this encounter Care Teams Setter Out Relationship Specialty Start Date End Date Morris Monreal MD PCP - General 04/21/02 11/17/21 Morris Monreal MD PCP - Assigned PCP 05/17/08 09/21/18 Kali Ventura PA-C [address] [place] [address] PCP - General Family Medicine 11/18/21 12/17/23 [place] [address] [place] [address] PCP - General Family Medicine 12/18/23 06/02/24 David Lau PA-C [address] [place] [address] PCP - General Family Medicine 06/03/24 Morris Monreal MD Assigned PCP 04/22/12 09/22/20 Ricky Stanley MD 6363 [facility] 500 [place] [phone] Assigned Surgical Provider 05/11/20 Kacy Reyes MD [address] [place] [address] 200 [place], [place] [phone] Assigned Endocrinology Provider 08/12/20 07/31/23 Yohana Briggs APRN STAVE BLOCK SPLITTER [address] [place] [phone] Assigned PCP 09/23/20 10/20/20 [place] [address] [facility] 300 [place], [place] [address] Assigned Musculoskeletal Provider 10/28/20 11/24/20 Morris Monreal MD Assigned PCP 10/21/20 10/05/21 Valentino William PA-C [address] [facility] 300 [place] [address] Assigned Musculoskeletal Provider 11/25/20 06/20/22 Kizzy [place], [place] [address] [facility] [place] [address] Assigned Surgical Provider 06/09/2108/22/22 Carlo Bonilla MD 1099 [place] [address] Assigned PCP 10/06/21 01/17/22 Kali Ventura PA-C [address] [place] [address] Assigned PCP 01/18/22 07/10/23 [place] [address] [place] [address] [place] [address] Assigned Surgical Provider 09/20/22 Ricky Ramirez MD 1390 [place] [address] Assigned PCP 07/11/23 12/09/23 Kayce Jasso PA-C 500 [place] [address] Assigned Endocrinology Provider 08/21/23 12/09/23 Kali Ventura PA-C [address] [place] [address] Assigned PCP 12/10/23 01/09/24 Kacy Reyes MD [address] [place] [address] 200 [place] [address] Assigned Endocrinology Provider 12/10/23 [place] [address] [place] [address] Assigned PCP 01/10/24 documented as of this encounter
--- OUTSIDE RECORDS SUMMARY | 2024-06-20 22:00 | XMS_ITS ---
Author Organization [facility] [place] Address [address] [place] [address]. [place] [address] Care Team Providers Care Trailer Sections Assembler Name Role Phone Kacy Reyes MD Unavailable [phone] Tru Dasilva MD Unavailable David Lau PA-C Primary Care Provider Diabetes Self-Management Education Status:Enrolled (Active) Start date:11/06/2021 Enrollment date:11/06/2021 Continued Care and Services Coordination
--- OUTSIDE RECORDS SUMMARY | 2024-06-20 22:00 | XMS_ITS | Clinical Summary ---
[facility] Address [place], [place] [address] Care Team Providers Care Hair Specialist Name Role Phone Mariam Diop MD Primary [...] 04/13/2024 2:45 PM CDT Nurse/Clinic Staff Only [facility] [address] [place] [address] Education (Freestyle Rick 3 Application) 04/13/2024 Travel 04/06/2024 Telephone [facility] [address] [place] [address] Mariam Diop MD Questions (Alc [...] age 6-64 Completed 01/06/2022, 03/27/2015 Care Teams Hair Specialist Relationship Specialty [place] [address] [place] [address] PCP - General Family Practice 03/16/24
--- OUTSIDE RECORDS SUMMARY | 2024-06-20 22:00 | XMS_ITS | Encounter Summary ---
Author Organization [place] Address [facility] [place] [address] Care Team Providers Care Travel Coordinator Name Role Phone Morris Monreal MD Primary Care Provider Unavailable Morris Monreal MD Unavailable UnaMorris Lugo MD Unavailable Unavai Ricky Antony MD Unavailable Kacy Reyes MD Unavailable [phone] Yohana Briggs APRN TRUCK DRIVER TEAMSTER Unavailable Chris Lemon MD Unavailable Morris Monreal MD Unavailable UnaValentino Vásquez-C Unavailable Kizzy Davenport OD Unavailable Carlo Bonilla MD Unavailable [phone] Kali Ventura PA-C Primary Care Provider Kali Ventura PA-C Unavailable Kizzy Davenport OD Unavailable Ricky Ramirez MD Unavailable Kayce Jasso-C Unavailable Kali Ventura PA-C Unavailable Kacy Reyes MD Unavailable [phone] Tru Dasilva MD Primary Care Provider [phone] Tru Dasilva MD Unavailable David Lau PA-C Primary Care Provider Reason for Visit * Reason Onset Date Comments Diabetes Education 08/25/2018 Encounter Details Date Type Department Care Team (Late st Contact Info) Description 08/25/2018 Telephone [facility] [id number] [place] [phone] Sarah Montoya APRN [facility] [id number] [place] [address] Diabetes Education Social History Tobacco Use Types Packs/Day Years Used Date Smoking Tobacco: Never Smokeless Tobacco: Never Alcohol Use Standard Drinks/Week Comments Yes 0 (1 standard drink = 0.6 oz pur e alcohol) wine PHQ-2 Answer Date Recorded PHQ-2 Score 0 07/27/2018 Comments No Sex and Gender Information Value Date Recorded Sex Assigned at Not on file Legal Sex Female 3:19 AM MOTOR BIKE MECHANIC Gender Identity Not on file Sexual Orientation [...] outreach attempt within 1 week. [place] [place] [facility] Sched[facility] R BIKE MECHANIC documented in this encounter Plan of Treatment Upcoming Encounters Date Type Department Care Team (Latest Contact Info) Description 06/24/2024 8:30 AM MOTOR BIKE MECHANIC Office Visit [facility] [address] [place] [phone] [place] [address] [place] [address] 07/29/2024 10:45 AM MOTOR BIKE MECHANIC Ancillary Procedure [facility] [address] [place] [phone] David Lau PA-C [address] [place], [place] [phone] Visit for screening mammogram 10/31/2024 3:00 PM CDT Office Visit [facility] [address] [facility] [address] [place] [phone] Kayce Jasso PA-C [address] [place], [place] [address] 01/02/2025 10:00 AM CDT Office Visit [facility] [address] [place] [phone] David Lau PA-C [address] [place], [place] [phone] 05/03/2025 1:00 PM CDT Office Visit [facility] [address] [facility] [address] [place] [phone] Kacy Reyes MD [address] [place], [place] [address] documented as of this encounter Visit Diagnoses Not on filedocumented in this encounter Additional Health Concerns Infection Onset Date Last Indicated Resolved Time Rule Out COVID-19 06/19/2020 06/19/2020 06/20/2020 4:31 PM MOTOR BIKE MECHANIC Rule Out COVID-19 08/08/2021 08/08/2021 08/09/2021 1:52 PM MOTOR BIKE MECHANIC COVID-19 08/08/2021 08/08/2021 08/29/2021 11:3 9 PM MOTOR BIKE MECHANIC Rule Out C-difficile 01/21/2023 01/22/2023 023 2:33 PM CDT documented as of this encounter Care Teams Travel Coordinator Relationship Specialty Start Date End Date Morris Monreal MD PCP - General 04/21/02 11/17/21 Morris Monreal MD PCP - Assigned PCP 05/17/08 09/21/18 Kali Ventura PA-C [address] [place] [address] PCP - General Family Medicine 11/18/21 12/17/23 [place] [address] [place] [address] PCP - General Family Medicine 12/18/23 06/02/24 David Lau PA-C [address] [place] [address] PCP - General Family Medicine 06/03/24 Morris Monreal MD Assigned PCP 04/22/12 09/22/20 Ricky Stanley MD [address] [facility] 500 [place] [phone] Assigned Surgical Provider 05/11/20 Kacy Reyes MD [address] [place] [address] 200 [place] [address] Assigned Endocrinology Provider 08/12/20 07/31/23 Yohana Briggs APRN TRUCK DRIVER TEAMSTER [address] [place] [address] Assigned PCP 09/23/20 10/20/20 [place] [address] [employer] [facility] [address] [place] [address] Assigned Musculoskeletal Provider 10/28/20 11/24/20 Morris Monreal MD Assigned PCP 10/21/20 10/05/21 Valentino William PA-C [address] [employer] [place] [address] Assigned Musculoskeletal Provider 11/25/20 06/20/22 Kizzy Davenport OD [address] [facility] [place] [address] Assigned Surgical Provider 06/09/2108/22/22 Carlo Bonilla MD [address] [facility] [place] [address] Assigned PCP 10/06/21 01/17/22 Kali Ventura PA-C [address] [place] [address] Assigned PCP 01/18/22 07/10/23 [place] OD [address] [facility] [place] [address] Assigned Surgical Provider 09/20/22 Ricky Ramirez MD [address]0 [place] [address] Assigned PCP 07/11/23 12/09/23 Kyace Jasso PA-C 500 [place] [address] Assigned Endocrinology Provider 08/21/23 12/09/23 Kali Ventura PA-C [address] [place] [address] Assigned PCP 12/10/23 01/09/24 Kacy Reyes MD [address] [place] [address] 200 [place] [address] Assigned Endocrinology Provider 12/10/23 [place] [address] [place] [address] Assigned PCP 01/10/24 documented as of this encounter
--- OUTSIDE RECORDS SUMMARY | 2024-06-20 22:00 | XMS_ITS | Encounter Summary ---
Author Organization [place] Address [facility] [place] [address] Care Team Providers Care Desktop Publishing Operator Name Role Phone Morris Monreal MD Primary Care Provider Unavailable Kacy Reyes MD Unavailable [phone] Morris Monreal MD Unavailable [facility] Valentino Jaquez-C Unavailable [phone] Kizzy Davenport OD Unavailable [phone] Carlo Bonilla MD Unavailable [phone] Kali VenturaC Primary Care Provider Kali Ventura-C Unavailable Kizzy Davenport OD Unavailable Ricky Ramirez MD Unavailable Kayce Jasso-C Unavailable Kali Ventura-C Unavailable [phone] Kacy Reyes MD Unavailable [phone] Tru Dasilva MD Primary Care Provider [phone] Tru Dasilva MD Unavailable David LauC Primary Care Provider Encounter Details Date Type Department Care Team (Late st Contact Info) Description 08/06/2021 [facility] Only [facility] Centralized Scheduling [address] [place] [address] Jose Alejandro Ferguson MD [address] [place] [address] Suspected COVID-19 virus infection Social History Tobacco [...] on file Legal Sex Female 3:19 AM FLOOR COVERER APPRENTICE Gender Identity Not on file Sexual Orientation Not on file Occupation Industry Job Start Date Job End Date Not on file Not on file Not on file Not on file COVID-19 Exposure Response Date Recorded In the last month, have you been in contact with someone who was confirmed or suspected to have Coronavirus / COVID-19? No / Unsure 08/08/2021 2:04 PM FLOOR COVERER APPRENTICE documented as of this encounter Plan of Treatment Upcoming Encounters Date Type Department Care Team (Latest Contact Info) Description 06/24/2024 8:30 AM FLOOR COVERER APPRENTICE Office Visit [facility] [address] [place] [phone] [place] [address] [place], [place] [phone] 07/29/2024 10:45 AM FLOOR COVERER APPRENTICE Ancillary Procedure [facility] [address] [place] [address] David Lau PA-C [address] [place] [address] Visit for screening mammogram 10/31/2024 3:00 PM CDT Office Visit [place] [address] [place] [phone] Kayce Jasso PA-C [address] [place] [address] 01/02/2025 10:00 AM CDT Office Visit [facility] [address] [place] [phone] David Lau PA-C [address] [place], [place] [phone] 05/03/2025 1:00 PM CDT Office Visit [facility] [address] [facility] [address] [place] [phone] Kacy Reyes MD [address] [place] [address] 200 [place], [place] [address] documented as of this encounter Results * (ABNORMAL) Symptomatic; Auto-generated order COVID-19 Virus (Coronavirus) by PCR Nose (08/08/2021 2:06 PM FLOOR COVERER APPRENTICE) [facility] SARS CoV2 PCR Positive( A) Negative, Testing sent to reference lab. Results will be returned via unsolicited result 08/09/2021 1:52 PM FLOOR COVERER APPRENTICE [facility] Comment:POSITIVE: SARS-CoV-2 (COVID-19) RNA detected, presumed positive. Swab NASAL STRUCTURE / Unknown Non-blood Collection / Unknown 08/08/2021 2:06 PM FLOOR COVERER APPRENTICE 08/08/2021 2:23 PM FLOOR COVERER APPRENTICE Narrative [facility] - 08/09/2021 1:52 PM FLOOR COVERER APPRENTICE Testing was performed using the Aptima SARS-CoV-2 Assay on the [employer] Instrument System. Additional information about this Emergency [...] COVID-19. This test was validated by the [facility]. This laboratory is certified under the Clinical Laboratory Improvement Amendments of 1988 (CLIA-88) as qualified to perform high complexity laboratory testing. Jose Alejandro Ferguson MD LAB - MICRO GENERAL ORDERABLES F inal Result [facility] ([facility]) [address] [facility], [address] [place] [address], [facility] [phone] documented in this encounter Visit Diagnoses Diagnosis Suspected COVID-19 virus infection Visit for screening mammogram Other screening mammogram documented in this encounter Additional Health Concerns Infection Onset Date Last Indicated Resolved Time Rule Out COVID-19 08/08/2021 08/08/2021 08/09/2021 1:52 PM FLOOR COVERER APPRENTICE COVID-19 08/08/2021 08/08/2021 08/29/2021 11:3 9 PM FLOOR COVERER APPRENTICE Rule Out C-difficile 01/21/2023 01/22/2023 023 2:33 PM CDT documented as of this encounter Care Teams Desktop Publishing Operator Relationship Specialty Start Date End Date Morris Monreal MD PCP - General 04/21/02 11/17/21 Kali Ventura PA-C [address] [place] [address] PCP - General Family Medicine 11/18/21 12/17/23 [place] [address] [place] [address] PCP - General Family Medicine 12/18/23 06/02/24 David Lau [place]-C [address] [place] [address] PCP - General Family Medicine 06/03/24 Kacy Reyes MD [address] [place] [address] 200 [place] [address] Assigned Endocrinology Provider 08/12/20 07/31/23 Morris Monreal MD Assigned PCP 10/21/20 10/05/21 Valentino William PA-C [address] [facility] [address] [place] [address] Assigned Musculoskeletal Provider 11/25/20 06/20/22 Kizzy Davenport OD [address] [facility] [place] [address] Assigned Surgical Provider 06/09/2108/22/22 Carlo Bonilla MD [address] [place] [address] Assigned PCP 10/06/21 01/17/22 Kali Ventura PA-C [address] [place] [address] Assigned PCP 01/18/22 07/10/23 Kizzy Davenport OD [address] [facility] [place] [address] Assigned Surgical Provider 09/20/22 Ricky Ramirez MD 1390 [place] [address] Assigned PCP 07/11/23 12/09/23 Kayce Jasso PA-C 500 [place] [address] Assigned Endocrinology Provider 08/21/23 12/09/23 Kali Ventura PA-C [address] [place] [address] Assigned PCP 12/10/23 01/09/24 Kacy Reyes MD [address] [place] [address] Assigned Endocrinology Provider 12/10/23 [place] [address] [place] [address] Assigned PCP 01/10/24 documented as of this encounter
== END 2024-06-20 19:52 | disposition home or self-care (01) ==
PROVIDERS: Emergency Provider Emergency Medicine Emergency Medical Services
DX: N20.1 Calculus of ureter (principal)
CPT/HCPCS: 36415; 74177; 80048; 81001; 83690; 85025; 96361; 96374; 96375; 99284; 99285; J1885; J2405; J7030; Q9967